=== PATIENT | male | born 1945 | race Caucasian/White ===

== ENCOUNTER 2016-07-06 15:14 | Inpatient (IN) ==
[2016-07-06] MEDS ORDERED: SODIUM CHLORIDE 0.9% 1,000 ML IV SCH (15:30)
[2016-07-06] MEDS ORDERED: METOPROLOL TARTRATE 5 MG/5 ML VIAL IV ONE (17:57)
[2016-07-06 17:59] LABS: Basophils # 0.1 10*3/uL (0.0-0.2); Basophils % 0.9 % (0.0-0.8); Eosinophils # 0.2 10*3/uL (0.0-0.87); Eosinophils % 1.7 % (0.00-10.9); Hematocrit 38.1 VOL% (42.0-52.0); Hemoglobin 12.8 GM/DL (14.0-18.0); Immature Granulocytes % 0.3 %; Immature Granulocytes Absolute 0.03 #; Lymphocytes # 1.9 10*3/uL (1.4-4.0); Lymphocytes % 21.5 % (21.2-54.2); Mean Corpuscular HGB Conc 33.6 GM/DL (32-36); Mean Corpuscular Hemoglobin 30 PG (27-34); Mean Platelet Volume 11.5 FL (9.6-12.0); Monocytes % 11.5 % (1.7-12.7); Neutrophils # 5.7 10*3/uL (1.4-7.4); Neutrophils % 64.1 % (38.7-73.9); Platelet Count 209 T/CUMM (130-400); Red Blood Count 4.28 MC/CUMM (3.8-5.5); Red Cell Distribution Width 13.5 % (9.3-17.3); White Blood Count 8.9 T/CUMM (4-12)
[2016-07-06 18:33] LABS: Troponin I Only 18.7 NG/ML (0.00-0.045)
[2016-07-06] MEDS ORDERED: THIAMINE INJ 100 MG, FOLIC ACID INJ 1 MG, MULTIVITAMIN INJ 10 ML in SODIUM CHLORIDE 0.9... IV ONE (20:00)
[2016-07-06] MEDS: ENOXAPARIN 100 MG/ML SYRINGE SUBCUT SCH (20:29)
[2016-07-06] MEDS: ATORVASTATIN 40 MG TABLET PO SCH (20:30)
[2016-07-06] MEDS: chlordiazePOXIDE 10 MG CAPSULE PO SCH (20:30)
[2016-07-06] MEDS: CHLORHEXIDINE 0.12% ORAL RINSE 60 ML BOTTLE SWISH/SPIT SCH (20:30)
[2016-07-06] MEDS: METOPROLOL TARTRATE 50 MG TABLET PO SCH (20:32)
[2016-07-06] MEDS ORDERED: CHLORHEXIDINE 4% SOLN 118 ML BOTTLE TOP SCH (21:00)
[2016-07-07] MEDS: NITROGLYCERIN 2% OINT 1 INCH/GM PACK TOP SCH ×4 (01:00→18:14)
[2016-07-07 04:51] LABS: Basophils # 0.1 10*3/uL (0.0-0.2); Eosinophils # 0.3 10*3/uL (0.0-0.87); Eosinophils % 3.7 % (0.00-10.9); Hemoglobin 12.4 GM/DL (14.0-18.0); Immature Granulocytes % 0.5 %; Immature Granulocytes Absolute 0.04 #; Lymphocytes % 23.5 % (21.2-54.2); Mean Corpuscular HGB Conc 33.5 GM/DL (32-36); Mean Corpuscular Hemoglobin 30 PG (27-34); Mean Corpuscular Volume 90.5 FL (87-102); Mean Platelet Volume 11.6 FL (9.6-12.0); Monocytes % 11.2 % (1.7-12.7); Neutrophils # 5.2 10*3/uL (1.4-7.4); Neutrophils % 60.1 % (38.7-73.9); Platelet Count 209 T/CUMM (130-400); Red Blood Count 4.09 MC/CUMM (3.8-5.5); Red Cell Distribution Width 13.4 % (9.3-17.3); White Blood Count 8.6 T/CUMM (4-12)
--- NOTE | 2016-07-07 07:59 | XRay Report ---
Portable chest Date: 07/06/2016 Clinical history: Respiratory preoperative evaluation Comparison: None Technique: Portable AP sitting chest Findings: The heart is borderline in size with calcification in the aortic knob. Symmetric pleural thickening at the lung apices with calcified granulomata. Minimal atelectasis at the lung bases. Unremarkable mediastinum with degenerative changes. Impression: Evidence of old healed granulomatous disease with minimal atelectasis at the lung bases. PROCEDURE INTERPRETED AT [facility] DEPARTMENT OF RADIOLOGY Final Report Signed by: Dr. Yeimi Fox
[2016-07-07] MEDS: ASPIRIN CHEW 81 MG TABLET PO SCH (08:08)
[2016-07-07] MEDS: METOPROLOL TARTRATE 50 MG TABLET PO SCH ×2 (08:08→21:37)
[2016-07-07] MEDS: chlordiazePOXIDE 10 MG CAPSULE PO SCH ×2 (08:09→21:37)
[2016-07-07] MEDS: CHLORHEXIDINE 0.12% ORAL RINSE 60 ML BOTTLE SWISH/SPIT SCH ×2 (08:11→21:54)
--- NOTE | 2016-07-07 08:30 | Cardiology Consult Note ---
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 Christopher, 71WM, has risk factors significant for: CAD, hyertension, remote tobaccosim (stopped smoking 8 years ago). Patient presented to the emergency department of [facility] with complaints of chest pain occurring intermittently over the 3 days prior to admission, worsening in intensity and duration. He was diagnosed with NST SAVANNAH and taken to the cardiac catheterization July 06, 2016 with the following impression noted, ostial LAD 70 % stenosis, mid LAD 70% stenosis, proximal left circumflex 85% stenosis, distal left circumflex 100% occluded, OM1 90% proximal RCA 70% stenosis, mid right coronary artery 60% stenosis, EF 60% with small apical inferior akinesis. Patient was deemed best fit for CABG. He was transferred to [facility] where he has been housed in our ICU overnight and is awaiting CABG today by Dr. Hale. Prior to this admission, patient had no known history of coronary artery disease. Echocardiogram reveals LVEF 55%, mitral annular calcification is present especially at the posterior mitral valve annulus, mild MR noted, dilated aortic root (4.82 cm), RVSP 30-35 mmHg. Concentric left ventricular hypertrophy. Labs this morning have been ordered. Patient is NPO at this time and is awaiting surgery. It appears that his troponin has peaked at 10 per last draw at [facility] [place]. I will go ahead and order cardiac biomarkers, basic labs this morning she will have a baseline post surgery. Patient describes symptoms of claudication in bilateral lower extremities at 100 yards, worse in the right lower extremity. May need further workup outpatient eventually. ASSESSMENT/PLAN: 1. CAD - awaiting CABG this morning 2. HYPERTENSION - patient reports long-standing history of uncontrolled hypertension. Will adjust medications accordingly during hospital stay. 3. UNKNOWN LIPID STATUS - fasting lipid profile this morning 4. REMOTE TOBACCOSIM - stopped smoking over 8 years ago. 5. NSTEMI - scheduled for CABG this morning CC: Basil Hale - Home Medications and Allergies Home Medications: Home Medications Medication Instructions Recorded Confirmed Type Fenofibrate 160 mg PO DAILY 07/06/16 07/06/16 History Losartan Potassium 100 mg PO DAILY 07/06/16 07/06/16 History Meloxicam 15 mg PO DAILY 07/06/16 07/06/16 History Metoprolol Tartrate 25 mg PO BID 07/06/16 07/06/16 History Ranitidine Tab [Zantac Tab] 150 mg PO BID 07/06/16 07/06/16 History Allergies/Adverse Reactions: Allergies Allergy/AdvReac Type Severity Reaction Status Date / Time No Known Allergies Allergy Verified 07/06/16 17:13 Review of systems: REVIEW OF SYSTEMS: - Constitutional Constitutional: Present: Fatigue. Absent: syncope, anorexia, night sweats - EENT Eyes: Absent: blurry vision, loss of vision, diplopia Ears: Absent: decreased hearing, ear pain, ear discharge - Cardiovascular Cardiovascular: Denies chest pain, increasing dyspnea on exertion and at rest. Claudication. Denies edema, palpitations. Absent: chest pain with deep breath , - Respiratory Respiratory: Present: FREEMAN, denies cough. Absent: wheezing, hemoptysis, change in phlegm color - Gastrointestinal Gastrointestinal: Denies: constipation. Absent: adbominal pain, hematemesis, hematochezia, melena, change in bowel habits, nausea - Genitourinary Genitourinary: Absent: difficulty urinating, dysuria, urinary hesitancy, flank pain - Musculoskeletal Musculoskeletal: Present: back pain Absent: joint swelling, muscle cramps, muscle weakness - Neurological Neurological: Present: normal gait without frequent falls. Absent: dizziness, hemiparesis - Psychiatric Psychiatric: Absent: anxiety, depression, difficulty concentrating - Endocrine Endocrine: Present: fatigue. Absent: cold intolerance, heat intolerance, polyuria, polyphagia, polydipsia - Hematologic/Lymphatic Hematologic/Lymphatic: Present: easy bruising. Absent: easy bleeding -Integumentary Integumentary: Absent: lesions, rashes, skin breakdown Medical,Surgical,& Family Hx - Medical History Cardio: History of: CAD, Hypertension, [place] (NSTEMI) Gastrointestinal: History of: GERD Musculoskeletal: History of: Musculoskeletal Problems (SHOULDER SURGERY IN 1971) - Surgical History Cardiac Surgeries: Sugical HX of: Cardiac Catheterization (07/06/16) Patient Denies: Cardiac Surgery (SCHEDULED FOR CABG 07/08/16) HEENT Surgeries: Surgical HX of: Eye Surgery (CATARACT) - Family History Family History: Reports;: Family Diabetes (MOTHER) - Social History Smoking Status: Former smoker Have you smoked in the last 12 months: No Type of Drug Use: None Lives With:: Alone Functional capacity: independent ambulation Physical Examination Vital Signs Pulse Resp 71 12 07/06/16 17:09 07/06/16 17:09 General: [Appears well with no apparent distress.] [Pleasant and cooperative. ] [Appears comfortable.] HEENT: [PERRL, normocephalic, atraumatic. Mucous membranes moist. No jaundice noted. Conjunctiva moist and clear, sclerae anicteric] Neck: No JVD/HJR, no thyromegaly or lymphadenopathy noted. No carotid bruit appreciated Cardiac: [Regular rate and rhythm.] [No murmur rub or gallop.] Lungs: [Clear to auscultation without accessory muscle use to assist the respiratory pattern.] Not requiring oxygen Abdomen: Soft, bowel sounds normoactive. Nontender and nondistended. No abdominal bruit or thrill noted. No masses noted. Musculoskeletal: No fluid collection. Decreased range of motion is noted. Extremities: No clubbing, cyanosis noted. [ No edema noted.] Upper extremity pulses 2+. Lower extremity pulses 1+. Capillary refill less than 3 seconds. Skin: No unusual lesions or rashes. No skin breakdown appreciated. Neuro: Awake, alert and oriented 3. Moves all extremities well without hemiparesis or paralysis. No essential tremor is appreciated. Result/EKG - Labs CBC & BMP: 07/07/16 04:11 Lab Results: I have reviewed the past 24 hour labs Labs: Laboratory Results - last 24 hr 07/06/16 07/06/16 07/06/16 17:40 17:40 18:47 WBC 8.9 RBC 4.28 Hgb 12.8 L Hct 38.1 L MCV 89.0 MCH 30 MCHC 33.6 RDW 13.5 Plt Count 209 MPV 11.5 Neut % (Auto) 64.1 Lymph % (Auto) 21.5 [place] % (Auto) 11.5 Eos % (Auto) 1.7 Baso % (Auto) 0.9 H Neut # (Auto) 5.7 Lymph # (Auto) 1.9 [place] # (Auto) 1.0 H Eos # (Auto) 0.2 Baso # (Auto) 0.1 Immature Gran % 0.3 Nucleated RBC % 0.0 Immature Gran # 0.03 Nucleated RBCs # 0.00 Total Creatine Kinase 505 H CK-MB (CK-2) 23.0 H CK and CKMB Interp Troponin I 18.700 H Blood Type 07/07/16 07/07/16 07/07/16 04:11 04:11 Unknown WBC 8.6 RBC 4.09 Hgb 12.4 L Hct 37.0 L MCV 90.5 MCH 30 MCHC 33.5 RDW 13.4 Plt Count 209 MPV 11.6 Neut % (Auto) 60.1 Lymph % (Auto) 23.5 [place] % (Auto) 11.2 Eos % (Auto) 3.7 Baso % (Auto) 1.0 H Neut # (Auto) 5.2 Lymph # (Auto) 2.0 [place] # (Auto) 1.0 H Eos # (Auto) 0.3 Baso # (Auto) 0.1 Immature Gran % 0.5 Nucleated RBC % 0.0 Immature Gran # 0.04 Nucleated RBCs # 0.00 Total Creatine Kinase 302 D CK-MB (CK-2) 9.0 H D CK and CKMB Interp 3.0 Troponin I 11.000 H D Blood Type O POSITIVE - Diagnostic Findings Procedure: Chest x-ray: report reviewed by me - EKG EKG results: interpreted by ok EKG shows: sinus rhythm
--- NOTE | 2016-07-07 08:42 | Cardiothoracic History & Phys ---
Assessment and Plan - Time spent with patient Time spent with patient: Greater than 30 minutes Time spent discussing smoking cessation with patient: more than 10 minutes (1) Coronary artery disease Status: Acute Assessment and plan: Risk Model and Variables - STS Adult Cardiac Surgery Database Version 2.81 RISK SCORES About the STS Risk Calculator Procedure: CAB Only Risk of Mortality: 2.942% Morbidity or Mortality: 22.787% Long Length of Stay: 9.483% Short Length of Stay: 31.899% Permanent Stroke: 1.511% Prolonged Ventilation: 14.406% DSW Infection: 0.762% Renal Failure: 9.415% Reoperation: 7.51% 71-year-old gentleman with non-ST elevation myocardial infarction and three- vessel disease. The patient now is hemodynamically stable. I transferred him to [facility] to perform CABG. Risks benefits and alternatives of the procedure were discussed with the patient and he understands and he is eager to proceed with surgery. I scheduled him for surgery on July 08, 2016. Of note the patient noted that he would have 1-2 alcoholic beverage per night for the past few years. The risks of delirium tremens were explained to the patient and he was placed on a banana bag and Librium. I expect him to have delirium tremens within his hospital stay and it was explained to him. We will manage accordingly. Current Visit: Yes (2) Coronary artery disease Status: Acute Current Visit: Yes History of Present Illness Chief complaint: Non-ST elevation myocardial infarction History of present illness: Mr. Christopher is a 71 year old male who has been having on and off chest pain for the past few weeks. Most recently had an unrelenting chest pain that made him come to the ER at [facility]. The patient was evaluated and was noted to have an elevated troponin. He was taken to the Industrial Relations Representative and he was found to have three-vessel disease. We were consulted and evaluated him and he is a good candidate for surgery. He is hemodynamically stable. He was transferred to [facility] for his surgical procedure. Home Medications Medication Instructions Recorded Confirmed Type Fenofibrate 160 mg PO DAILY 07/06/16 07/06/16 History Losartan Potassium 100 mg PO DAILY 07/06/16 07/06/16 History Meloxicam 15 mg PO DAILY 07/06/16 07/06/16 History Metoprolol Tartrate 25 mg PO BID 07/06/16 07/06/16 History Ranitidine Tab [Zantac Tab] 150 mg PO BID 07/06/16 07/06/16 History Allergies Allergy/AdvReac Type Severity Reaction Status Date / Time No Known Allergies Allergy Verified 07/06/16 17:13 12 point system: reviewed and no additional remarkable complaints except as stated (HPI) Medical,Surgical,& Family Hx - Medical History Cardio: History of: CAD, Hypertension, [place] (NSTEMI) Gastrointestinal: History of: GERD Musculoskeletal: History of: Musculoskeletal Problems (SHOULDER SURGERY IN 1971) - Surgical History Cardiac Surgeries: Sugical HX of: Cardiac Catheterization (07/06/16) Patient Denies: Cardiac Surgery (SCHEDULED FOR CABG 07/08/16) HEENT Surgeries: Surgical HX of: Eye Surgery (CATARACT) - Family History Family History: Reports;: Family Diabetes (MOTHER) - Social History Smoking Status: Former smoker Have you smoked in the last 12 months: No Time spent discussing smoking cessation with patient: more than 10 minutes Frequency of Alcohol Use: Frequently (1-2 alcoholic beverage daily for the past 20 years) Type of Drug Use: None Cardiology Physical Exam - Constitutional Vitals: Vital Signs Temp Pulse Resp BP Pulse Ox 98.8 F 85 20 124/78 93 L 07/07/16 08:00 07/07/16 08:00 07/07/16 08:00 07/07/16 08:00 07/07/16 08:00 Intake and Output 07/06/16 07/07/16 07/07/16 22:59 06:59 14:59 Intake Total 50 / 50 1011.2 / 1011.2 100 / 100 Output Total 550 / 550 0 / 0 200 / 200 Balance -500 / -500 1011.2 / 1011.2 -100 / -100 Intake: IV 1011.2 / 1011.2 Vitamin B1 Inj 100 mg 1011.2 / 1011.2 Folic Acid Inj 5 mg/ml Multivitamin Inj 10 ml In Ns 1,000 ml @ 125 mls/hr IV ONCE ONE Rx#: [id number] Oral 50 / 50 100 / 100 Output: Urine 550 / 550 0 / 0 200 / 200 Other: Voiding Method Urinal Urinal # Voids 1 Weight 89.3 kg 85.275 kg General appearance: normal weight - Head Head exam: Present: normal inspection - Eye Eye exam: Present: EOMI Pupils: Present: JENNIFER - ENT ENT exam: Present: normal exam - Neck Neck exam: Present: normal inspection - Respiratory Respiratory exam: Present: clear to auscultation bilaterally - Cardiovascular Cardiovascular exam: Present: regular rate and rhythm - GI/Abdominal GI/Abdominal exam: Present: normal bowel sounds Result/EKG - Labs CBC & BMP: 07/07/16 04:11 Labs: Laboratory Results - last 24 hr 07/06/16 07/06/16 07/06/16 17:40 17:40 18:47 WBC 8.9 RBC 4.28 Hgb 12.8 L Hct 38.1 L MCV 89.0 MCH 30 MCHC 33.6 RDW 13.5 Plt Count 209 MPV 11.5 Neut % (Auto) 64.1 Lymph % (Auto) 21.5 [place] % (Auto) 11.5 Eos % (Auto) 1.7 Baso % (Auto) 0.9 H Neut # (Auto) 5.7 Lymph # (Auto) 1.9 [place] # (Auto) 1.0 H Eos # (Auto) 0.2 Baso # (Auto) 0.1 Immature Gran % 0.3 Nucleated RBC % 0.0 Immature Gran # 0.03 Nucleated RBCs # 0.00 Total Creatine Kinase 505 H CK-MB (CK-2) 23.0 H CK and CKMB Interp Troponin I 18.700 H Blood Type 07/07/16 07/07/16 07/07/16 04:11 04:11 Unknown WBC 8.6 RBC 4.09 Hgb 12.4 L Hct 37.0 L MCV 90.5 MCH 30 MCHC 33.5 RDW 13.4 Plt Count 209 MPV 11.6 Neut % (Auto) 60.1 Lymph % (Auto) 23.5 [place] % (Auto) 11.2 Eos % (Auto) 3.7 Baso % (Auto) 1.0 H Neut # (Auto) 5.2 Lymph # (Auto) 2.0 [place] # (Auto) 1.0 H Eos # (Auto) 0.3 Baso # (Auto) 0.1 Immature Gran % 0.5 Nucleated RBC % 0.0 Immature Gran # 0.04 Nucleated RBCs # 0.00 Total Creatine Kinase 302 D CK-MB (CK-2) 9.0 H D CK and CKMB Interp 3.0 Troponin I 11.000 H D Blood Type O POSITIVE
[2016-07-07 09:57] LABS: Basophils # 0.1 10*3/uL (0.0-0.2); Basophils % 0.7 % (0.0-0.8); Eosinophils # 0.2 10*3/uL (0.0-0.87); Eosinophils % 2.8 % (0.00-10.9); Hematocrit 39.6 VOL% (42.0-52.0); Hemoglobin 13.1 GM/DL (14.0-18.0); Immature Granulocytes % 0.6 %; Immature Granulocytes Absolute 0.05 #; Lymphocytes # 1.6 10*3/uL (1.4-4.0); Lymphocytes % 18.9 % (21.2-54.2); Mean Corpuscular HGB Conc 33.1 GM/DL (32-36); Mean Corpuscular Hemoglobin 30 PG (27-34); Mean Corpuscular Volume 91.2 FL (87-102); Mean Platelet Volume 11.5 FL (9.6-12.0); Monocytes # 0.9 10*3/uL (0.11-0.8); Monocytes % 10.2 % (1.7-12.7); Neutrophils # 5.8 10*3/uL (1.4-7.4); Neutrophils % 66.8 % (38.7-73.9); Platelet Count 227 T/CUMM (130-400); Red Blood Count 4.34 MC/CUMM (3.8-5.5); Red Cell Distribution Width 13.6 % (9.3-17.3); White Blood Count 8.6 T/CUMM (4-12)
[2016-07-07 09:58] LABS: Risk Ratio 4.43; VLDL CHOLESTEROL 28.6 MG/DL
[2016-07-07 10:26] LABS: Calcium 8.6 MG/DL (8.5-10.1); Magnesium 1.6 MG/DL (1.8-2.4); Osmolality,Calculated 281.4 MOS/KG (273-304); Potassium 4.2 MMOL/L (3.5-5.1)
[2016-07-07 10:30] LABS: CKMB % 2.3 %
[2016-07-07 10:31] LABS: Troponin I Only 8.9 NG/ML (0.00-0.045)
[2016-07-07] MEDS: CHLORHEXIDINE 4% SOLN 118 ML BOTTLE TOP SCH ×2 (15:14→21:54)
[2016-07-07] MEDS: ENOXAPARIN 100 MG/ML SYRINGE SUBCUT SCH (21:36)
[2016-07-07] MEDS: ATORVASTATIN 40 MG TABLET PO SCH (21:37)
[2016-07-07] MEDS ORDERED: diphenhydrAMINE 50 MG/1 ML VIAL IV ONE (22:58)
[2016-07-08] MEDS ORDERED: CEFUROXIME INJ 1,500 MG in SODIUM CHLORIDE 0.9% 100 ML IV ONE ×2 (00:01→06:00)
[2016-07-08] MEDS: NITROGLYCERIN 2% OINT 1 INCH/GM PACK TOP SCH ×3 (00:40→13:50)
[2016-07-08] MEDS ORDERED: PAPAVERINE 60 MG/2 ML VIAL ONE (04:36)
[2016-07-08] MEDS ORDERED: TISSUE ADHESIVE 1 EACH APPLICATOR TOP ONE (04:37)
[2016-07-08] MEDS ORDERED: VANCOMYCIN 1,000 MG VIAL ONE (04:37)
[2016-07-08 04:56] LABS: Basophils # 0.1 10*3/uL (0.0-0.2); Basophils % 0.7 % (0.0-0.8); Eosinophils # 0.4 10*3/uL (0.0-0.87); Eosinophils % 5.3 % (0.00-10.9); Hematocrit 35.7 VOL% (42.0-52.0); Immature Granulocytes % 0.5 %; Immature Granulocytes Absolute 0.04 #; Lymphocytes # 1.8 10*3/uL (1.4-4.0); Lymphocytes % 22.3 % (21.2-54.2); Mean Corpuscular HGB Conc 33.6 GM/DL (32-36); Mean Corpuscular Hemoglobin 30 PG (27-34); Mean Corpuscular Volume 90.4 FL (87-102); Mean Platelet Volume 11.9 FL (9.6-12.0); Monocytes % 11.8 % (1.7-12.7); Neutrophils # 4.9 10*3/uL (1.4-7.4); Neutrophils % 59.4 % (38.7-73.9); Platelet Count 202 T/CUMM (130-400); Red Blood Count 3.95 MC/CUMM (3.8-5.5); Red Cell Distribution Width 13.3 % (9.3-17.3); White Blood Count 8.3 T/CUMM (4-12)
[2016-07-08 05:21] LABS: Calcium 8.4 MG/DL (8.5-10.1); Magnesium 1.7 MG/DL (1.8-2.4); Osmolality,Calculated 282.3 MOS/KG (273-304)
[2016-07-08] MEDS ORDERED: FAMOTIDINE 20 MG/2 ML VIAL IV ONE (05:30)
[2016-07-08] MEDS ORDERED: LORazepam 1 MG TABLET PO ONE (05:30)
[2016-07-08] MEDS ORDERED: SODIUM CHLORIDE 0.9% 1,000 ML IV SCH (06:00)
[2016-07-08] MEDS ORDERED: ETOMIDATE 20 MG/10 ML VIAL IV ONE (06:45)
[2016-07-08] MEDS ORDERED: ONDANSETRON 4 MG/2 ML VIAL ONE (06:45)
[2016-07-08] MEDS ORDERED: ESMOLOL 100 MG/10 ML VIAL IV ONE (06:45)
[2016-07-08] MEDS ORDERED: CALCIUM CHLORIDE 1,000 MG/10 ML SYRINGE IV ONE (06:45)
[2016-07-08] MEDS ORDERED: AMINOCAPROIC ACID 5,000 MG/20 ML VIAL IV ONE (06:45)
[2016-07-08] MEDS ORDERED: MINERAL OIL/PETROLATUM OPH OINT 3.5 GM TUBE ONE (06:45)
[2016-07-08] MEDS ORDERED: KETOROLAC 30 MG/1 ML VIAL ONE (06:45)
[2016-07-08] MEDS ORDERED: PHENYLEPHRINE 1 MG/10 ML SYRINGE IV ONE (06:45)
[2016-07-08] MEDS ORDERED: EPINEPHrine 1 MG/10 ML SYRINGE ONE ×2 (06:45→09:16)
[2016-07-08] MEDS ORDERED: LIDOCAINE 1% 5 ML VIAL ONE (06:45)
[2016-07-08] MEDS ORDERED: ROCURONIUM 100 MG/10 ML VIAL IV ONE (06:45)
[2016-07-08 07:46] LABS: ABG Base Excess -3.8 MMOL/L (-2.5-2.5); ABG HCO3 21.2 MMOL/L (20-26); ABG Oxygen Saturation 99.2 % (95-100); ABG PCO2 32.5 MM HG (35-48); Glucose Heart Surgery 114 MG/DL (74-106); Hematocrit Heart Surgery 34.7 PERCENT (42-52); Hemoglobin Heart Surgery 11.3 G/DL (14.0-18.0); Ionized Calcium Arterial 1.17 MMOL/L (1.21-1.46); PCO2 Patient Temp Arterial 32.5 MMHG; Patient Temperature 37 CELCIUS; Potassium Heart/CVR 3.7 MMOL/L (3.5-5.1); Sodium Heart/CVR 139 MMOL/L (135-145)
[2016-07-08 08:13] LABS: Apearance,Urine CLEAR (Clear); Bacteria,Urine Occasional /HPF (Few); Bilirubin,Urine Negative (Negative); Blood, Urine Negative (Negative); Glucose,Urine (UA) Negative (Negative); Ketones,Urine Negative (Negative); Nitrite,Urine Negative (Negative); Protein,Urine Negative; RBC,Urine 1 /HPF (0-4); Urine Color Yellow (Yellow); Urine Specific Gravity 1.011 (1.001-1.035); Urine Urobilinogen < 2.0 EU/DL (0.2-1.0); WBC,Urine 1 /HPF (0-6)
[2016-07-08] MEDS ORDERED: PHENYLEPHRINE DRIP 40 MG/250 ML PREMIX IV ONE (09:15)
[2016-07-08] MEDS ORDERED: NITROPRUSSIDE 50 MG/2 ML VIAL ONE (09:15)
[2016-07-08 09:16] LABS: Hemoglobin Heart Surgery 8.6 G/DL (14.0-18.0); PH Patient Temp Venous 7.511; PO2 Patient Temp Venous 32.4 MM HG; Potassium Heart/CVR 4.5 MMOL/L (3.5-5.1); VBG Base Excess -2.2 MEQ/L (0-4); VBG HCO3 20.9 MEQ/L (24-28); VBG Oxygen Saturation 75.6 %; VBG PCO2 29.7 MMHG (41-51); VBG PH 7.466; VBG PO2 40.1 MMHG (17-40)
[2016-07-08] MEDS ORDERED: ALBUMIN 5% 12.5 GM/250 ML VIAL IV ONE (09:16)
[2016-07-08] MEDS ORDERED: LIDOCAINE 100 MG/5 ML SYRINGE ONE (09:16)
[2016-07-08] MEDS ORDERED: ATROPINE 1 MG/1 ML VIAL ONE (09:16)
[2016-07-08] MEDS ORDERED: POTASSIUM CHLORIDE RIDER 100 ML IV ONE (09:32)
[2016-07-08 09:45] LABS: Hematocrit Heart Surgery 26.7 PERCENT (42-52); Hemoglobin Heart Surgery 8.6 G/DL (14.0-18.0); PCO2 Patient Temp Venous 29.9 MM HG; PH Patient Temp Venous 7.43; PO2 Patient Temp Venous 37.4 MM HG; Potassium Heart/CVR 4.3 MMOL/L (3.5-5.1); VBG Base Excess -3.7 MEQ/L (0-4); VBG HCO3 21.1 MEQ/L (24-28); VBG Oxygen Saturation 80.6 %; VBG PCO2 34.5 MMHG (41-51); VBG PH 7.387; VBG PO2 45.9 MMHG (17-40)
[2016-07-08] MEDS: chlordiazePOXIDE 10 MG CAPSULE PO SCH (09:58)
[2016-07-08] MEDS: ASPIRIN CHEW 81 MG TABLET PO SCH (09:58)
[2016-07-08] MEDS: CHLORHEXIDINE 4% SOLN 118 ML BOTTLE TOP SCH (09:58)
[2016-07-08] MEDS: CHLORHEXIDINE 0.12% ORAL RINSE 60 ML BOTTLE SWISH/SPIT SCH ×2 (09:58→20:56)
[2016-07-08] MEDS: METOPROLOL TARTRATE 50 MG TABLET PO SCH (09:58)
[2016-07-08 10:14] LABS: Hematocrit Heart Surgery 25.3 PERCENT (42-52); Hemoglobin Heart Surgery 8.1 G/DL (14.0-18.0); PCO2 Patient Temp Venous 28.5 MM HG; PH Patient Temp Venous 7.434; PO2 Patient Temp Venous 36.2 MM HG; Potassium Heart/CVR 4.4 MMOL/L (3.5-5.1); VBG Base Excess -4.4 MEQ/L (0-4); VBG HCO3 20.5 MEQ/L (24-28); VBG Oxygen Saturation 79.3 %; VBG PCO2 32.9 MMHG (41-51); VBG PH 7.39; VBG PO2 44.6 MMHG (17-40)
[2016-07-08 11:14] LABS: Hematocrit Heart Surgery 24.6 PERCENT (42-52); Hemoglobin Heart Surgery 7.9 G/DL (14.0-18.0); PCO2 Patient Temp Venous 49.2 MM HG; PH Patient Temp Venous 7.204; PO2 Patient Temp Venous 38.4 MM HG; Potassium Heart/CVR 3.7 MMOL/L (3.5-5.1); VBG Base Excess -8.4 MEQ/L (0-4); VBG HCO3 17.2 MEQ/L (24-28); VBG Oxygen Saturation 66.3 %; VBG PCO2 49.2 MMHG (41-51); VBG PH 7.204; VBG PO2 38.4 MMHG (17-40)
[2016-07-08 12:05] LABS: ABG Base Excess -2.7 MMOL/L (-2.5-2.5); ABG HCO3 20.2 MMOL/L (20-26); ABG Oxygen Saturation 98.7 % (95-100); ABG PCO2 28.3 MM HG (35-48); ABG PH 7.472 (7.35-7.45); ABG PO2 274.1 MM HG (80-95); ABG TCO2 21.1 MMOL/L (23-27); Glucose Heart Surgery 260 MG/DL (74-106); Hemoglobin Heart Surgery 8.9 G/DL (14.0-18.0); Ionized Calcium Arterial 1.07 MMOL/L (1.21-1.46); PCO2 Patient Temp Arterial 28.3 MMHG; PH Patient Temp Arterial 7.472; PO2 Patient Temp Arterial 274.1 MM HG; Patient Temperature 37 CELCIUS; Sodium Heart/CVR 133 MMOL/L (135-145)
[2016-07-08] MEDS ORDERED: SODIUM BICARBONATE 50 MEQ/50 ML VIAL IV ONE (12:14)
[2016-07-08] MEDS ORDERED: DEXTROSE 5% KCL 20 MEQ 20 MEQ/1,000 ML BAG IV ONE (12:14)
[2016-07-08] MEDS ORDERED: MANNITOL 12.5 GM/50 ML VIAL IV ONE (12:15)
[2016-07-08] MEDS ORDERED: ALBUMIN 25% 25 GM/100 ML VIAL IV ONE (12:15)
[2016-07-08] MEDS ORDERED: MAGNESIUM SULFATE 1 GM/2 ML VIAL ONE (12:15)
[2016-07-08] MEDS ORDERED: methylPREDNISolone SOD SUC 1,000 MG/8 ML VIAL ONE (12:15)
[2016-07-08] MEDS ORDERED: HEPARIN 10,000 UNIT/10 ML VIAL ONE (12:15)
[2016-07-08] MEDS ORDERED: FUROSEMIDE 20 MG/2 ML VIAL ONE (12:15)
[2016-07-08] MEDS ORDERED: PROTAMINE SULFATE 250 MG/25 ML VIAL IV ONE (12:15)
[2016-07-08] MEDS ORDERED: PROTAMINE SULFATE 50 MG/5 ML VIAL IV ONE (12:16)
[2016-07-08] MEDS: SODIUM CHLORIDE 0.45% 1,000 ML IV SCH ×2 (12:49→12:50)
[2016-07-08] MEDS ORDERED: DEXTROSE 50% 25 GM/50 ML VIAL IV PRN ×2 (12:54)
[2016-07-08] MEDS ORDERED: CHLORHEXIDINE 4% SOLN 118 ML BOTTLE TOP PRN (12:54)
[2016-07-08] MEDS ORDERED: INSULIN REGULAR 100 UNIT/ML IV PRN (12:54)
[2016-07-08] MEDS ORDERED: MORPHINE 10 MG/1 ML VIAL IV PRN (12:54)
[2016-07-08] MEDS ORDERED: SODIUM CHLORIDE 0.9% 250 ML IV PRN (12:54)
[2016-07-08] MEDS ORDERED: ACETAMINOPHEN 650 MG SUPP RECTAL PRN (12:54)
[2016-07-08] MEDS ORDERED: MAGNESIUM SULF RIDER 4 GM in PREMIX 1 EACH IV PRN (12:54)
[2016-07-08] MEDS ORDERED: CALCIUM CHLORIDE 1,000 MG/10 ML SYRINGE IV PRN (12:54)
[2016-07-08] MEDS ORDERED: MIDAZOLAM 2 MG/2 ML VIAL IV PRN (12:54)
[2016-07-08] MEDS ORDERED: ONDANSETRON 4 MG/2 ML VIAL IV PRN (12:54)
[2016-07-08] MEDS ORDERED: INSULIN REGULAR DRIP 100 ML IV SCH (13:00)
[2016-07-08] MEDS ORDERED: SODIUM CHLORIDE 0.9% 250 ML IV ONE (13:06)
[2016-07-08] MEDS ORDERED: LACTATED RINGERS 1,000 ML IV ONE (13:06)
[2016-07-08] MEDS ORDERED: SODIUM CHLORIDE 0.9% 2,000 ML IV ONE (13:06)
[2016-07-08] MEDS ORDERED: MIDAZOLAM 10 MG/2 ML VIAL ONE (13:06)
[2016-07-08] MEDS ORDERED: ePHEDrine 50 MG/ML AMP ONE (13:06)
[2016-07-08] MEDS ORDERED: SEVOFLURANE 1 UNIT/15 MINUTE INH ONE (13:07)
[2016-07-08 13:21] LABS: ABG Base Excess -4.4 MMOL/L (-2.5-2.5); ABG HCO3 18.9 MMOL/L (20-26); ABG Oxygen Saturation 98.1 % (95-100); ABG PCO2 28.7 MM HG (35-48); ABG PH 7.436 (7.35-7.45); ABG TCO2 19.8 MMOL/L (23-27); Glucose Heart Surgery 239 MG/DL (74-106); Hemoglobin Heart Surgery 10.2 G/DL (14.0-18.0); Potassium Heart/CVR 3.9 MMOL/L (3.5-5.1)
[2016-07-08 13:22] LABS: Basophils # 0.1 10*3/uL (0.0-0.2); Basophils % 0.4 % (0.0-0.8); Eosinophils # 0.3 10*3/uL (0.0-0.87); Eosinophils % 1.7 % (0.00-10.9); Hematocrit 28.5 VOL% (42.0-52.0); Hemoglobin 9.7 GM/DL (14.0-18.0); Immature Granulocytes % 1.5 %; Immature Granulocytes Absolute 0.24 #; Lymphocytes # 1.9 10*3/uL (1.4-4.0); Lymphocytes % 11.5 % (21.2-54.2); Mean Corpuscular Hemoglobin 30 PG (27-34); Mean Corpuscular Volume 88.2 FL (87-102); Monocytes # 1.2 10*3/uL (0.11-0.8); Monocytes % 7.1 % (1.7-12.7); Neutrophils # 12.7 10*3/uL (1.4-7.4); Neutrophils % 77.8 % (38.7-73.9); Platelet Count 178 T/CUMM (130-400); Red Blood Count 3.23 MC/CUMM (3.8-5.5); White Blood Count 16.3 T/CUMM (4-12)
[2016-07-08] MEDS: POTASSIUM CHLORIDE RIDER 20 MEQ in PREMIX 1 EACH IV PRN ×2 (13:37→16:10)
[2016-07-08 13:41] LABS: INR 1.3; PT Patient Result 14.3 SECS; Partial Thromboplastin Time 29.9 SECS (0-40)
[2016-07-08 13:42] LABS: Lactic Acid 4.3 MMOL/L (0.4-2.0)
[2016-07-08] MEDS ORDERED: NITROPRUSSIDE 50 MG/2 ML VIAL IV PRN (13:58)
[2016-07-08 14:00] LABS: Magnesium 2.4 MG/DL (1.8-2.4); Osmolality,Calculated 291.1 MOS/KG (273-304); Potassium 4.3 MMOL/L (3.5-5.1)
[2016-07-08] MEDS ORDERED: PHENYLEPHRINE DRIP 40 MG/250 ML PREMIX IV SCH (14:00)
--- NOTE | 2016-07-08 14:02 | XRay Report ---
Portable chest Date: 07/08/2016 Clinical history: Endotracheal tube/line placed Comparison: 07/06/2016 Technique: Portable AP supine chest Findings: The heart is minimally enlarged with interval median sternotomy. The endotracheal tube, nasogastric tube, mediastinal chest tubes are in satisfactory position. Right IJ CVP line with tip in SVC. No pneumothorax. Minimal atelectasis/edema at lung bases. Degenerative changes are noted. Impression: Interval median sternotomy with a supportive devices in satisfactory position. Minimal atelectasis/edema at the lung bases with no definite pneumothorax. PROCEDURE INTERPRETED AT [facility] DEPARTMENT OF RADIOLOGY Final Report Signed by: Dr. Yeimi Fox
[2016-07-08] MEDS: ALBUMIN 5% 12.5 GM in PREMIX 1 EACH IV PRN ×4 (14:04→22:21)
[2016-07-08] MEDS: POTASSIUM CHLORIDE RIDER 10 MEQ in PREMIX 1 EACH IV PRN ×2 (14:08→16:45)
[2016-07-08] MEDS: MAGNESIUM SULF RIDER 2 GM in PREMIX 1 EACH IV PRN (14:14)
[2016-07-08] MEDS ORDERED: SODIUM CHLORIDE 0.9% 1,000 ML IV ONE (14:25)
[2016-07-08] MEDS ORDERED: NITROPRUSSIDE 100 MG in DEXTROSE 5% 250 ML IV SCH (14:30)
[2016-07-08 16:04] LABS: ABG Base Excess -2.2 MMOL/L (-2.5-2.5); ABG HCO3 21.3 MMOL/L (20-26); ABG Oxygen Saturation 96.2 % (95-100); ABG PCO2 31.8 MM HG (35-48); ABG PH 7.443 (7.35-7.45); ABG PO2 84.4 MM HG (80-95); ABG TCO2 22.2 MMOL/L (23-27); Glucose Heart Surgery 200 MG/DL (74-106); Hemoglobin Heart Surgery 10.2 G/DL (14.0-18.0); Potassium Heart/CVR 3.8 MMOL/L (3.5-5.1)
--- NOTE | 2016-07-08 16:28 | Cardiology Progress Note ---
Cardiology - PN: Subj Interval history: Patient is now postop. He is hemodynamically stable with good outputs and stable vital signs. He is not awake at this point but his rhythm is good and he is stable immediately postop. Exam (Progress Note) - Constitutional Vitals: Period Temp Pulse Resp BP Sys/Nails Pulse Ox Last 24 Hr 97.0 F-97.5 F 69-93 10-20 86-175/51-108 93-100 Exam: General:no acute distress. Patient sedated on the ventilator HEENT: no new lesions, sclerae are clear, mouth and pharynx benign Neck: supple, trachea midline, no JVD noted Lungs: no rales ronchi or wheeze is noted. Typical postoperative mediastinal sounds noted CV: RRR no murmur rub or gallop is noted. Abd: soft and nontender, BSNA, no masses. Ext: no cyanosis, clubbing or edema Neuro: Patient sedated on the ventilator Result/EKG - Labs CBC & BMP: 07/08/16 13:17 07/08/16 13:17 Labs: Laboratory Results - last 24 hr 07/07/16 07/08/16 07/08/16 04:11 04:33 04:33 WBC 8.3 RBC 3.95 Hgb 12.0 L Hct 35.7 L MCV 90.4 MCH 30 MCHC 33.6 RDW 13.3 Plt Count 202 MPV 11.9 Neut % (Auto) 59.4 Lymph % (Auto) 22.3 [place] % (Auto) 11.8 Eos % (Auto) 5.3 Baso % (Auto) 0.7 Neut # (Auto) 4.9 Lymph # (Auto) 1.8 [place] # (Auto) 1.0 H Eos # (Auto) 0.4 Baso # (Auto) 0.1 Immature Gran % 0.5 Nucleated RBC % 0.0 Immature Gran # 0.04 Nucleated RBCs # 0.00 INR PT Patient/Control Mix Circ Anticoag PTT Patient Temperature ABG pH ABG pH at Pt Temp ABG pCO2 ABG pCO2 at Pt Temp ABG pO2 ABG pO2 at Pt Temp ABG HCO3 ABG Total CO2 ABG O2 Saturation ABG Base Excess ABG Sodium VBG pH VBG pCO2 VBG pO2 VBG HCO3 VBG Total CO2 VBG O2 Saturation VBG Base Excess Hemoglobin Hematocrit Ionized Calcium FiO2 Sodium 141 Potassium 4.0 Chloride 108 H Carbon Dioxide 22 Anion Gap 15.0 BUN 18 Creatinine 1.70 H GFR Calculation 46 BUN/Creatinine Ratio 10.00 Glucose 107 H Calculated Osmolality 282.3 Lactic Acid Calcium 8.4 L Venous Ioniz Calcium Magnesium 1.7 L Urine Color Urine Appearance Urine pH Ur Specific [place] Urine Protein Urine Glucose (UA) Urine Ketones Urine Blood Urine Nitrate Urine Bilirubin Urine Urobilinogen Urine Leukocytes Urine RBC Urine WBC Urine Bacteria Ur Culture Indicated? Blood Type O POSITIVE Antibody Screen Negative Crossmatch See Detail 07/08/16 07/08/16 07/08/16 07:35 07:40 08:06 WBC RBC Hgb Hct MCV MCH MCHC RDW Plt Count 146 D MPV Neut % (Auto) Lymph % (Auto) [place] % (Auto) Eos % (Auto) Baso % (Auto) Neut # (Auto) Lymph # (Auto) [place] # (Auto) Eos # (Auto) Baso # (Auto) Immature Gran % Nucleated RBC % Immature Gran # Nucleated RBCs # INR PT Patient/Control Mix Circ Anticoag PTT Patient Temperature 37 ABG pH 7.400 ABG pH at Pt Temp 7.400 ABG pCO2 32.5 L ABG pCO2 at Pt Temp 32.5 ABG pO2 162.0 H ABG pO2 at Pt Temp 162.0 ABG HCO3 21.2 ABG Total CO2 18.0 L ABG O2 Saturation 99.2 ABG Base Excess -3.8 L ABG Sodium 139 VBG pH VBG pCO2 VBG pO2 VBG HCO3 VBG Total CO2 VBG O2 Saturation VBG Base Excess Hemoglobin 11.3 L Hematocrit 34.7 L Ionized Calcium 1.17 L FiO2 Sodium Potassium 3.7 Chloride Carbon Dioxide Anion Gap BUN Creatinine GFR Calculation BUN/Creatinine Ratio Glucose 114 H Calculated Osmolality Lactic Acid Calcium Venous Ioniz Calcium Magnesium Urine Color Yellow Urine Appearance Clear Urine pH 6.0 Ur Specific [place] 1.011 Urine Protein Negative Urine Glucose (UA) Negative Urine Ketones Negative Urine Blood Negative Urine Nitrate Negative Urine Bilirubin Negative Urine Urobilinogen < 2.0 H Urine Leukocytes Trace Urine RBC 1 Urine WBC 1 Urine Bacteria Occasional Ur Culture Indicated? Not indicated Blood Type Antibody Screen Crossmatch 07/08/16 07/08/16 07/08/16 09:10 09:43 10:12 WBC RBC Hgb Hct MCV MCH MCHC RDW Plt Count MPV Neut % (Auto) Lymph % (Auto) [place] % (Auto) Eos % (Auto) Baso % (Auto) Neut # (Auto) Lymph # (Auto) [place] # (Auto) Eos # (Auto) Baso # (Auto) Immature Gran % Nucleated RBC % Immature Gran # Nucleated RBCs # INR PT Patient/Control Mix Circ Anticoag PTT Patient Temperature 34 34 34 ABG pH ABG pH at Pt Temp 7.511 7.430 7.434 ABG pCO2 ABG pCO2 at Pt Temp 26.0 29.9 28.5 ABG pO2 ABG pO2 at Pt Temp 32.4 37.4 36.2 ABG HCO3 ABG Total CO2 ABG O2 Saturation ABG Base Excess ABG Sodium 128 L 132 L 131 L VBG pH 7.466 7.387 7.390 VBG pCO2 29.7 L 34.5 L 32.9 L VBG pO2 40.1 H 45.9 H 44.6 H VBG HCO3 20.9 L 21.1 L 20.5 L VBG Total CO2 21.8 19.3 18.6 VBG O2 Saturation 75.6 80.6 79.3 VBG Base Excess -2.2 L -3.7 L -4.4 L Hemoglobin 8.6 L 8.6 L D 8.1 L Hematocrit 25.0 L 26.7 L 25.3 L Ionized Calcium FiO2 80.00 80.00 80.00 Sodium Potassium 4.5 4.3 4.4 Chloride Carbon Dioxide Anion Gap BUN Creatinine GFR Calculation BUN/Creatinine Ratio Glucose 314 H 283 H 280 H Calculated Osmolality Lactic Acid Calcium Venous Ioniz Calcium 0.89 1.03 L 0.99 L Magnesium Urine Color Urine Appearance Urine pH Ur Specific [place] Urine Protein Urine Glucose (UA) Urine Ketones Urine Blood Urine Nitrate Urine Bilirubin Urine Urobilinogen Urine Leukocytes Urine RBC Urine WBC Urine Bacteria Ur Culture Indicated? Blood Type Antibody Screen Crossmatch 07/08/16 07/08/16 07/08/16 11:15 11:53 12:13 WBC RBC Hgb Hct MCV MCH MCHC RDW Plt Count 63 L D MPV Neut % (Auto) Lymph % (Auto) [place] % (Auto) Eos % (Auto) Baso % (Auto) Neut # (Auto) Lymph # (Auto) [place] # (Auto) Eos # (Auto) Baso # (Auto) Immature Gran % Nucleated RBC % Immature Gran # Nucleated RBCs # INR PT Patient/Control Mix Circ Anticoag PTT Patient Temperature 37 37 ABG pH 7.472 H ABG pH at Pt Temp 7.204 7.472 ABG pCO2 28.3 L ABG pCO2 at Pt Temp 49.2 28.3 ABG pO2 274.1 H ABG pO2 at Pt Temp 38.4 274.1 ABG HCO3 20.2 ABG Total CO2 21.1 L ABG O2 Saturation 98.7 ABG Base Excess -2.7 L ABG Sodium 135 133 L VBG pH 7.204 VBG pCO2 49.2 VBG pO2 38.4 VBG HCO3 17.2 L VBG Total CO2 18.6 VBG O2 Saturation 66.3 VBG Base Excess -8.4 L Hemoglobin 7.9 L 8.9 L Hematocrit 24.6 L 26.0 L Ionized Calcium 1.07 L FiO2 80.00 Sodium Potassium 3.7 4.0 Chloride Carbon Dioxide Anion Gap BUN Creatinine GFR Calculation BUN/Creatinine Ratio Glucose 319 H 260 H Calculated Osmolality Lactic Acid Calcium Venous Ioniz Calcium 1.22 Magnesium Urine Color Urine Appearance Urine pH Ur Specific [place] Urine Protein Urine Glucose (UA) Urine Ketones Urine Blood Urine Nitrate Urine Bilirubin Urine Urobilinogen Urine Leukocytes Urine RBC Urine WBC Urine Bacteria Ur Culture Indicated? Blood Type Antibody Screen Crossmatch 07/08/16 07/08/16 07/08/16 13:17 13:17 13:17 WBC 16.3 H D RBC 3.23 L Hgb 9.7 L D Hct 28.5 L MCV 88.2 MCH 30 MCHC 34.0 RDW 14.0 Plt Count 178 D MPV 11.0 Neut % (Auto) 77.8 H Lymph % (Auto) 11.5 L [place] % (Auto) 7.1 Eos % (Auto) 1.7 Baso % (Auto) 0.4 Neut # (Auto) 12.7 H Lymph # (Auto) 1.9 [place] # (Auto) 1.2 H Eos # (Auto) 0.3 Baso # (Auto) 0.1 Immature Gran % 1.5 Nucleated RBC % 0.0 Immature Gran # 0.24 Nucleated RBCs # 0.00 INR 1.3 PT Patient/Control Mix 14.3 Circ Anticoag PTT 29.9 Patient Temperature ABG pH ABG pH at Pt Temp ABG pCO2 ABG pCO2 at Pt Temp ABG pO2 ABG pO2 at Pt Temp ABG HCO3 ABG Total CO2 ABG O2 Saturation ABG Base Excess ABG Sodium VBG pH VBG pCO2 VBG pO2 VBG HCO3 VBG Total CO2 VBG O2 Saturation VBG Base Excess Hemoglobin Hematocrit Ionized Calcium FiO2 Sodium 142 Potassium 4.3 Chloride 106 Carbon Dioxide 20 L Anion Gap 20.3 H BUN 15 Creatinine 1.60 H GFR Calculation 49 BUN/Creatinine Ratio 9.00 Glucose 239 H Calculated Osmolality 291.1 Lactic Acid 4.3 H Calcium 9.0 Venous Ioniz Calcium Magnesium 2.4 Urine Color Urine Appearance Urine pH Ur Specific [place] Urine Protein Urine Glucose (UA) Urine Ketones Urine Blood Urine Nitrate Urine Bilirubin Urine Urobilinogen Urine Leukocytes Urine RBC Urine WBC Urine Bacteria Ur Culture Indicated? Blood Type Antibody Screen Crossmatch 07/08/16 07/08/16 07/08/16 13:17 16:00 16:00 WBC RBC Hgb Hct MCV MCH MCHC RDW Plt Count MPV Neut % (Auto) Lymph % (Auto) [place] % (Auto) Eos % (Auto) Baso % (Auto) Neut # (Auto) Lymph # (Auto) [place] # (Auto) Eos # (Auto) Baso # (Auto) Immature Gran % Nucleated RBC % Immature Gran # Nucleated RBCs # INR PT Patient/Control Mix Circ Anticoag PTT Patient Temperature ABG pH 7.436 7.443 ABG pH at Pt Temp ABG pCO2 28.7 L 31.8 L ABG pCO2 at Pt Temp ABG pO2 131.0 H 84.4 ABG pO2 at Pt Temp ABG HCO3 18.9 L 21.3 ABG Total CO2 19.8 L 22.2 L ABG O2 Saturation 98.1 96.2 ABG Base Excess -4.4 L -2.2 ABG Sodium VBG pH VBG pCO2 VBG pO2 VBG HCO3 VBG Total CO2 VBG O2 Saturation VBG Base Excess Hemoglobin 10.2 L 10.2 L Hematocrit 30.0 L 30.0 L Ionized Calcium FiO2 Sodium Potassium 3.9 3.8 Chloride Carbon Dioxide Anion Gap BUN Creatinine GFR Calculation BUN/Creatinine Ratio Glucose 239 H 200 H Calculated Osmolality Lactic Acid 2.4 H Calcium Venous Ioniz Calcium Magnesium Urine Color Urine Appearance Urine pH Ur Specific [place] Urine Protein Urine Glucose (UA) Urine Ketones Urine Blood Urine Nitrate Urine Bilirubin Urine Urobilinogen Urine Leukocytes Urine RBC Urine WBC Urine Bacteria Ur Culture Indicated? Blood Type Antibody Screen Crossmatch Quality Measures - VTE Contraindication to Pharmacological VTE Prophylaxis: Active Bleeding Specialty Discharge - Follow Up or Referrals
--- NOTE | 2016-07-08 19:48 | Operative Note ---
Date of procedure: 07/08/16 Pre-op diagnosis: Severe coronary artery disease Post-op diagnosis: same Procedure: 1. [place] of bilateral greater saphenous vein 2. [place] of the left internal mammary artery 3. Institution of cardia pulmonary bypass 4. Coronary artery bypass graft 3 saphenous vein graft to the right main coronary artery, saphenous vein graft to obtuse marginal branch, pedicled left internal mammary graft to the left anterior descending artery. Findings: Multiple scar tissue scattered around the precordium noting multiple undiagnosed myocardial infarctions completed. He had enlargement of his aortic root and ascending measuring around 5 cm. Severe extensive disease of his right main coronary artery, circumflex as well as the left anterior descending artery. The bypass was completed without any complications. There was some bleeding noted from the cannulation site on the aorta which was repaired with multiple pledgets stitches. Details of the procedure: The patient was brought into the OR placed supine on the OR table and general endotracheal anesthesia was induced without any problems. The patient was prepped and draped in the usual sterile fashion. Antibiotics were given. Timeout was performed. An incision was made in midline chest and a sternotomy was performed. Hemostasis was achieved. I then started dissecting down the left internal mammary artery and its entirety from the first rib all the way down to the xiphisternum. It was functional with very good flow at the end. I then proceeded with opening the pericardium and performing pericardial stay sutures as a pericardial cradle. I then exposed the proximal aortic arch. Of note the aortic root and the ascending aorta were enlarged. 2 2-0 Ethibond stitches were used for the cannulation site. The cannula was inserted without any problems. I then turned my attention to insert the dual stage venous cannula. I then proceeded with prepping the mammary at this point. I instituted cardiopulmonary bypass and the flow was good. At this point I inserted the cardioplegia needle. I then placed the cross clamp across the ascending aorta and cardioplegia was given the heart arrested successfully. I then proceeded with identifying the right main coronary artery and extensive scarring was noted across the precordium. Identified the right main coronary artery and there is no to be some disease in it. There was plaque identified. I then made the arteriotomy and the distal anastomosis was created between the saphenous vein graft and the right main coronary artery. The flow was very good after. Next I then turned my attention to the circumflex circulation. The heart was rotated and the second obtuse marginal branch was identified. The anastomosis was created without any problems. The flow was very good after. I then turned my attention to the left internal mammary artery and identifying the target on the left anterior descending artery. It was of good size and good target. An arteriotomy was made. And the anastomosis was performed and hemostasis was achieved. Anastomosis performed using 7-0 Prolene stitch. At this point I rewarm the patient and the cross-clamp was removed. Sinus rhythm was obtained. I then instituted the proximal anastomosis to the saphenous vein grafts to the obtuse marginal branch as well as the right main coronary artery. This was done without any problems. I wean the patient off bypass successfully. I then at this point I gave protamine. I decannulated the venous cannula successfully. Before proceeding to decannulate the aorta it was noted that the aortic wall was very thin and the hole enlarged. I placed pledgeted stitches however I felt that the safest way is to go back on pump. Heparin was given again. A new site for cannulation was achieved and I went back on pump. The aorta was repaired successfully and hemostasis achieved. I then weaned the patient again from pump successfully without any problems. He was back in sinus rhythm. I gave protamine again to reverse heparin. I decannulated the patient successfully. The patient was in sinus rhythm and he is hemodynamically stable. I obtained hemostasis and chest tubes were inserted. The sternum was approximated using wires. The subcutaneous tissue closed using PDS. The skin was closed using Monocryl. All counts were correct at the end of the procedure. The patient was transferred to ICU in good condition. Anesthesia: ALVERTO Surgeon / Physician: Basil Hale Estimated blood loss: other (CPB) Specimens: none sent Condition: stable Disposition: ICU Results - Labs CBC & BMP: 07/08/16 13:17 07/08/16 13:17 Discharge Plan - Discharge Medications No Action Ranitidine Tab [Zantac Tab] 150 mg PO BID Metoprolol Tartrate 25 mg PO BID Meloxicam 15 mg PO DAILY Fenofibrate 160 mg PO DAILY Losartan Potassium 100 mg PO DAILY - Follow Up or Referral - Forms/Instructions Instructions: Heart Healthy Diet (GEN), Coronary Artery Bypass Graft, Filtering Machine Tender (GEN), Sternal Precautions (GEN)
[2016-07-08] MEDS: CEFUROXIME INJ 1,500 MG in SODIUM CHLORIDE 0.9% 100 ML IV SCH (20:58)
[2016-07-08] MEDS: VALPROIC ACID INJ 500 MG in SODIUM CHLORIDE 0.9% 100 ML IV SCH (22:22)
[2016-07-09] MEDS: SODIUM CHLORIDE 0.45% 1,000 ML IV SCH ×7 (01:18→21:39)
[2016-07-09 04:10] LABS: ABG Base Excess -3.8 MMOL/L (-2.5-2.5); ABG HCO3 21.2 MMOL/L (20-26); ABG Oxygen Saturation 94.5 % (95-100); ABG PCO2 31.9 MM HG (35-48); ABG PO2 69.1 MM HG (80-95); ABG TCO2 18.7 MMOL/L (23-27); Glucose Heart Surgery 169 MG/DL (74-106); Hematocrit Heart Surgery 26.4 PERCENT (42-52); Hemoglobin Heart Surgery 8.5 G/DL (14.0-18.0)
[2016-07-09 04:11] LABS: Basophils % 0.1 % (0.0-0.8); Hematocrit 24.8 VOL% (42.0-52.0); Hemoglobin 8.6 GM/DL (14.0-18.0); Immature Granulocytes % 0.5 %; Immature Granulocytes Absolute 0.08 #; Lymphocytes # 0.6 10*3/uL (1.4-4.0); Lymphocytes % 4.1 % (21.2-54.2); Mean Corpuscular HGB Conc 34.7 GM/DL (32-36); Mean Corpuscular Hemoglobin 30 PG (27-34); Mean Corpuscular Volume 87.6 FL (87-102); Mean Platelet Volume 11.5 FL (9.6-12.0); Neutrophils % 89.3 % (38.7-73.9); Platelet Count 114 T/CUMM (130-400); Red Blood Count 2.83 MC/CUMM (3.8-5.5); Red Cell Distribution Width 14.8 % (9.3-17.3); White Blood Count 15.7 T/CUMM (4-12)
[2016-07-09 04:39] LABS: Lymphocytes 5 % (20-55); Segmented Neutrophils 93 % (50-85); Total Cells Counted 100
[2016-07-09 04:40] LABS: Microcytosis 1+; Platelet Estimate Adequate
[2016-07-09 04:41] LABS: Hypochromasia Slight
[2016-07-09 04:47] LABS: Calcium 7.9 MG/DL (8.5-10.1); Magnesium 2.1 MG/DL (1.8-2.4); Osmolality,Calculated 289.1 MOS/KG (273-304); Potassium 4.1 MMOL/L (3.5-5.1)
[2016-07-09] MEDS: VALPROIC ACID INJ 500 MG in SODIUM CHLORIDE 0.9% 100 ML IV SCH ×2 (05:29→12:15)
--- NOTE | 2016-07-09 06:30 | XRay Report ---
Exam: XR chest 1V portable Date: 07/09/2016 4:00 AM Indication: Postop cardiac surgery Comparison: 07/08/2016 Technical: AP portable Findings: Endotracheal tube at the level of mid clavicle. Nasogastric tube is present. Right IJ catheter is in the superior vena cava. Mediastinal drains are present x2 with left lower thoracotomy tube also present. No pneumothorax. ASVD is present. Heart is mildly enlarged. Bony structures reveal no acute findings. Impression: 1. Stable appearance of the left support tubes without significant interval change. PROCEDURE INTERPRETED AT [facility] DEPARTMENT OF RADIOLOGY Final Report Signed by: Dr. Harsha Simon
[2016-07-09] MEDS: CEFUROXIME INJ 1,500 MG in SODIUM CHLORIDE 0.9% 100 ML IV SCH ×2 (08:35→21:32)
--- NOTE | 2016-07-09 08:56 | Anesthesia Post-Op ---
Anesthesia Post OP - Post Ansesthetic Evaluation Patient seen in post op: Yes Resp: other (Remains on vent.) CV: within normal limits Mental: other (very mininmal responses to verbal or painful stimuli) Temp: within normal limits [id number]: within normal limits Nausea and Vomiting: within normal limits Pain: within normal limits Other:: No anesthesia complications noted. Patient is not awakening and not sedated. Multiple physicians are aware.
--- NOTE | 2016-07-09 09:45 | Cardiology Progress Note ---
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 STEWART ([place]) [facility] [place] SUMMARY: Mr. Christopher, 71WM, was received to [facility] in transfer from [facility] July 07, 2016. At rest, he was diagnosed with NSTEMI. He underwent cardiac catheterization July 06, 2016 and diagnosed with three-vessel coronary artery disease. For this reason, he was transferred to our facility for elective coronary artery bypass grafting. Echocardiogram from [place] revealed LVEF 55%, mitral annular calcification is present especially at the posterior mitral valve annulus, mild MR noted, dilated aortic root (4.82 cm), RVSP 30-35 mmHg, concentric left ventricular hypertrophy. JULY 09, 2016: POD 1. Status post CABG 3 using BRASHER to LAD, SVG to OM, SVG to RCA. He remains in the cardiovascular recovery unit. It is reported he began to have suspected seizures during the night and is not following commands. He remains on vasopressors and mechanical ventilator. He does have a history of alcohol abuse and has been treated, prophylactically, for possible delirium tremens. Hemoglobin and hematocrit are stable this morning. Platelet count is 114. Creatinine has increased from 1.6 - 2.5. No arrhythmia noted. Patient's troponin peaked at 18.7. When stable, patient will need CT Head. I understand neurology has been consulted. ASSESSMENT/PLAN: 1. 3VCAD S/P CABG - POD 1: BRASHER-LAD, SVG-RCA, SVG-OM. Patient is critically ill. Continue supportive care. 2. HYPERTENSION -at this time, patient continues to require vasopressors. When able, will incorporate antihypertensives appropriately. 3. DYSLIPIDEMIA - LDL 122. Continue lipid-lowering agent when able. 4. REMOTE TOBACCOISM - stopped smoking over 8 years ago. 5. NSTEMI - s/p revascularization. Continue current plan of care. Exam (Progress Note) - Constitutional Vitals: Period Temp Pulse Resp BP Sys/Nails Pulse Ox Last 24 Hr 97 F-98.1 F 77-101 10-15 86-173/46-84 96-100 Exam: General: [Remains intubated] [] [Appears comfortable.] HEENT: [Normocephalic, atraumatic. Mucous membranes moist. No jaundice noted. Conjunctiva moist and clear, sclerae anicteric] Neck: No obvious JVD/HJR, no thyromegaly or lymphadenopathy noted. Cardiac: [Regular rate and rhythm.] [Friction rub noted. No obvious murmur. Lungs: [Coarse sounds noted throughout. Chest tubes intact without obvious air leak. Symmetrical chest wall movements noted. Sternotomy dressing dry and intact. Abdomen: Soft, bowel sounds normoactive. Nondistended. No abdominal bruit or thrill noted. No masses noted. Musculoskeletal: No fluid collection. Decreased range of motion is noted. Extremities: No clubbing, cyanosis noted. [ No edema noted.] Upper extremity pulses 2+. Lower extremity pulses 2+. Capillary refill less than 3 seconds. Skin: No unusual lesions or rashes. No skin breakdown appreciated. Neuro: Does not respond to tactile or verbal stimuli. No essential tremor is appreciated. Result/EKG - Labs CBC & BMP: 07/09/16 04:00 07/09/16 04:00 Lab Results: I have reviewed the past 24 hour labs Labs: Laboratory Results - last 24 hr 07/07/16 07/08/16 07/08/16 04:11 09:43 10:12 WBC RBC Hgb Hct MCV MCH MCHC RDW Plt Count MPV Neut % (Auto) Lymph % (Auto) Lake % (Auto) Eos % (Auto) Baso % (Auto) Neut # (Auto) Lymph # (Auto) Lake # (Auto) Eos # (Auto) Baso # (Auto) Total Counted Immature Gran % Nucleated RBC % Immature Gran # Segmented Neutrophils Lymphocytes Monocytes Nucleated RBCs # Platelet Estimate Hypochromasia Microcytosis INR PT Patient/Control Mix Circ Anticoag PTT Patient Temperature 34 34 ABG pH ABG pH at Pt Temp 7.430 7.434 ABG pCO2 ABG pCO2 at Pt Temp 29.9 28.5 ABG pO2 ABG pO2 at Pt Temp 37.4 36.2 ABG HCO3 ABG Total CO2 ABG O2 Saturation ABG Base Excess ABG Sodium 132 L 131 L VBG pH 7.387 7.390 VBG pCO2 34.5 L 32.9 L VBG pO2 45.9 H 44.6 H VBG HCO3 21.1 L 20.5 L VBG Total CO2 19.3 18.6 VBG O2 Saturation 80.6 79.3 VBG Base Excess -3.7 L -4.4 L Hemoglobin 8.6 L D 8.1 L Hematocrit 26.7 L 25.3 L Potassium 4.3 4.4 Glucose 283 H 280 H Ionized Calcium FiO2 80.00 80.00 Sodium Chloride Carbon Dioxide Anion Gap BUN Creatinine GFR Calculation BUN/Creatinine Ratio POC Glucose Calculated Osmolality Lactic Acid Calcium Venous Ioniz Calcium 1.03 L 0.99 L Magnesium Blood Type O POSITIVE Antibody Screen Negative Crossmatch See Detail 07/08/16 07/08/16 07/08/16 11:15 11:53 12:13 WBC RBC Hgb Hct MCV MCH MCHC RDW Plt Count 63 L D MPV Neut % (Auto) Lymph % (Auto) Lake % (Auto) Eos % (Auto) Baso % (Auto) Neut # (Auto) Lymph # (Auto) Lake # (Auto) Eos # (Auto) Baso # (Auto) Total Counted Immature Gran % Nucleated RBC % Immature Gran # Segmented Neutrophils Lymphocytes Monocytes Nucleated RBCs # Platelet Estimate Hypochromasia Microcytosis INR PT Patient/Control Mix Circ Anticoag PTT Patient Temperature 37 37 ABG pH 7.472 H ABG pH at Pt Temp 7.204 7.472 ABG pCO2 28.3 L ABG pCO2 at Pt Temp 49.2 28.3 ABG pO2 274.1 H ABG pO2 at Pt Temp 38.4 274.1 ABG HCO3 20.2 ABG Total CO2 21.1 L ABG O2 Saturation 98.7 ABG Base Excess -2.7 L ABG Sodium 135 133 L VBG pH 7.204 VBG pCO2 49.2 VBG pO2 38.4 VBG HCO3 17.2 L VBG Total CO2 18.6 VBG O2 Saturation 66.3 VBG Base Excess -8.4 L Hemoglobin 7.9 L 8.9 L Hematocrit 24.6 L 26.0 L Potassium 3.7 4.0 Glucose 319 H 260 H Ionized Calcium 1.07 L FiO2 80.00 Sodium Chloride Carbon Dioxide Anion Gap BUN Creatinine GFR Calculation BUN/Creatinine Ratio POC Glucose Calculated Osmolality Lactic Acid Calcium Venous Ioniz Calcium 1.22 Magnesium Blood Type Antibody Screen Crossmatch 07/08/16 07/08/16 07/08/16 13:17 13:17 13:17 WBC 16.3 H D RBC 3.23 L Hgb 9.7 L D Hct 28.5 L MCV 88.2 MCH 30 MCHC 34.0 RDW 14.0 Plt Count 178 D MPV 11.0 Neut % (Auto) 77.8 H Lymph % (Auto) 11.5 L Lake % (Auto) 7.1 Eos % (Auto) 1.7 Baso % (Auto) 0.4 Neut # (Auto) 12.7 H Lymph # (Auto) 1.9 Lake # (Auto) 1.2 H Eos # (Auto) 0.3 Baso # (Auto) 0.1 Total Counted Immature Gran % 1.5 Nucleated RBC % 0.0 Immature Gran # 0.24 Segmented Neutrophils Lymphocytes Monocytes Nucleated RBCs # 0.00 Platelet Estimate Hypochromasia Microcytosis INR 1.3 PT Patient/Control Mix 14.3 Circ Anticoag PTT 29.9 Patient Temperature ABG pH ABG pH at Pt Temp ABG pCO2 ABG pCO2 at Pt Temp ABG pO2 ABG pO2 at Pt Temp ABG HCO3 ABG Total CO2 ABG O2 Saturation ABG Base Excess ABG Sodium VBG pH VBG pCO2 VBG pO2 VBG HCO3 VBG Total CO2 VBG O2 Saturation VBG Base Excess Hemoglobin Hematocrit Potassium 4.3 Glucose 239 H Ionized Calcium FiO2 Sodium 142 Chloride 106 Carbon Dioxide 20 L Anion Gap 20.3 H BUN 15 Creatinine 1.60 H GFR Calculation 49 BUN/Creatinine Ratio 9.00 POC Glucose Calculated Osmolality 291.1 Lactic Acid 4.3 H Calcium 9.0 Venous Ioniz Calcium Magnesium 2.4 Blood Type Antibody Screen Crossmatch 07/08/16 07/08/16 07/08/16 13:17 15:16 16:00 WBC RBC Hgb Hct MCV MCH MCHC RDW Plt Count MPV Neut % (Auto) Lymph % (Auto) Lake % (Auto) Eos % (Auto) Baso % (Auto) Neut # (Auto) Lymph # (Auto) Lake # (Auto) Eos # (Auto) Baso # (Auto) Total Counted Immature Gran % Nucleated RBC % Immature Gran # Segmented Neutrophils Lymphocytes Monocytes Nucleated RBCs # Platelet Estimate Hypochromasia Microcytosis INR PT Patient/Control Mix Circ Anticoag PTT Patient Temperature ABG pH 7.436 ABG pH at Pt Temp ABG pCO2 28.7 L ABG pCO2 at Pt Temp ABG pO2 131.0 H ABG pO2 at Pt Temp ABG HCO3 18.9 L ABG Total CO2 19.8 L ABG O2 Saturation 98.1 ABG Base Excess -4.4 L ABG Sodium VBG pH VBG pCO2 VBG pO2 VBG HCO3 VBG Total CO2 VBG O2 Saturation VBG Base Excess Hemoglobin 10.2 L Hematocrit 30.0 L Potassium 3.9 Glucose 239 H Ionized Calcium FiO2 Sodium Chloride Carbon Dioxide Anion Gap BUN Creatinine GFR Calculation BUN/Creatinine Ratio POC Glucose 193 H Calculated Osmolality Lactic Acid 2.4 H Calcium Venous Ioniz Calcium Magnesium Blood Type Antibody Screen Crossmatch 07/08/16 07/08/16 07/08/16 16:00 17:11 18:06 WBC RBC Hgb Hct MCV MCH MCHC RDW Plt Count MPV Neut % (Auto) Lymph % (Auto) Lake % (Auto) Eos % (Auto) Baso % (Auto) Neut # (Auto) Lymph # (Auto) Lake # (Auto) Eos # (Auto) Baso # (Auto) Total Counted Immature Gran % Nucleated RBC % Immature Gran # Segmented Neutrophils Lymphocytes Monocytes Nucleated RBCs # Platelet Estimate Hypochromasia Microcytosis INR PT Patient/Control Mix Circ Anticoag PTT Patient Temperature ABG pH 7.443 ABG pH at Pt Temp ABG pCO2 31.8 L ABG pCO2 at Pt Temp ABG pO2 84.4 ABG pO2 at Pt Temp ABG HCO3 21.3 ABG Total CO2 22.2 L ABG O2 Saturation 96.2 ABG Base Excess -2.2 ABG Sodium VBG pH VBG pCO2 VBG pO2 VBG HCO3 VBG Total CO2 VBG O2 Saturation VBG Base Excess Hemoglobin 10.2 L Hematocrit 30.0 L Potassium 3.8 Glucose 200 H Ionized Calcium FiO2 Sodium Chloride Carbon Dioxide Anion Gap BUN Creatinine GFR Calculation BUN/Creatinine Ratio POC Glucose 161 H 153 H Calculated Osmolality Lactic Acid Calcium Venous Ioniz Calcium Magnesium Blood Type Antibody Screen Crossmatch 07/08/16 07/08/16 07/08/16 19:05 19:59 21:04 WBC RBC Hgb Hct MCV MCH MCHC RDW Plt Count MPV Neut % (Auto) Lymph % (Auto) Lake % (Auto) Eos % (Auto) Baso % (Auto) Neut # (Auto) Lymph # (Auto) Lake # (Auto) Eos # (Auto) Baso # (Auto) Total Counted Immature Gran % Nucleated RBC % Immature Gran # Segmented Neutrophils Lymphocytes Monocytes Nucleated RBCs # Platelet Estimate Hypochromasia Microcytosis INR PT Patient/Control Mix Circ Anticoag PTT Patient Temperature ABG pH ABG pH at Pt Temp ABG pCO2 ABG pCO2 at Pt Temp ABG pO2 ABG pO2 at Pt Temp ABG HCO3 ABG Total CO2 ABG O2 Saturation ABG Base Excess ABG Sodium VBG pH VBG pCO2 VBG pO2 VBG HCO3 VBG Total CO2 VBG O2 Saturation VBG Base Excess Hemoglobin Hematocrit Potassium Glucose Ionized Calcium FiO2 Sodium Chloride Carbon Dioxide Anion Gap BUN Creatinine GFR Calculation BUN/Creatinine Ratio POC Glucose 140 H 106 87 Calculated Osmolality Lactic Acid Calcium Venous Ioniz Calcium Magnesium Blood Type Antibody Screen Crossmatch 07/08/16 07/08/16 07/09/16 22:17 23:05 04:00 WBC 15.7 H RBC 2.83 L Hgb 8.6 L Hct 24.8 L MCV 87.6 MCH 30 MCHC 34.7 RDW 14.8 Plt Count 114 L D MPV 11.5 Neut % (Auto) 89.3 H Lymph % (Auto) 4.1 L Lake % (Auto) 6.0 Eos % (Auto) 0.0 Baso % (Auto) 0.1 Neut # (Auto) 14.0 H Lymph # (Auto) 0.6 L Lake # (Auto) 1.0 H Eos # (Auto) 0.0 Baso # (Auto) 0.0 Total Counted 100 Immature Gran % 0.5 Nucleated RBC % 0.0 Immature Gran # 0.08 Segmented Neutrophils 93 H Lymphocytes 5 L Monocytes 2 Nucleated RBCs # 0.00 Platelet Estimate Adequate Hypochromasia Slight Microcytosis 1+ INR PT Patient/Control Mix Circ Anticoag PTT Patient Temperature ABG pH ABG pH at Pt Temp ABG pCO2 ABG pCO2 at Pt Temp ABG pO2 ABG pO2 at Pt Temp ABG HCO3 ABG Total CO2 ABG O2 Saturation ABG Base Excess ABG Sodium VBG pH VBG pCO2 VBG pO2 VBG HCO3 VBG Total CO2 VBG O2 Saturation VBG Base Excess Hemoglobin Hematocrit Potassium Glucose Ionized Calcium FiO2 Sodium Chloride Carbon Dioxide Anion Gap BUN Creatinine GFR Calculation BUN/Creatinine Ratio POC Glucose 141 H 115 H Calculated Osmolality Lactic Acid Calcium Venous Ioniz Calcium Magnesium Blood Type Antibody Screen Crossmatch 07/09/16 07/09/16 04:00 04:00 WBC RBC Hgb Hct MCV MCH MCHC RDW Plt Count MPV Neut % (Auto) Lymph % (Auto) Lake % (Auto) Eos % (Auto) Baso % (Auto) Neut # (Auto) Lymph # (Auto) Lake # (Auto) Eos # (Auto) Baso # (Auto) Total Counted Immature Gran % Nucleated RBC % Immature Gran # Segmented Neutrophils Lymphocytes Monocytes Nucleated RBCs # Platelet Estimate Hypochromasia Microcytosis INR PT Patient/Control Mix Circ Anticoag PTT Patient Temperature ABG pH 7.410 ABG pH at Pt Temp ABG pCO2 31.9 L ABG pCO2 at Pt Temp ABG pO2 69.1 L ABG pO2 at Pt Temp ABG HCO3 21.2 ABG Total CO2 18.7 L ABG O2 Saturation 94.5 L ABG Base Excess -3.8 L ABG Sodium VBG pH VBG pCO2 VBG pO2 VBG HCO3 VBG Total CO2 VBG O2 Saturation VBG Base Excess Hemoglobin 8.5 L Hematocrit 26.4 L Potassium 4.1 4.0 Glucose 167 H 169 H Ionized Calcium FiO2 Sodium 142 Chloride 110 H Carbon Dioxide 21 Anion Gap 15.1 H BUN 21 H Creatinine 2.50 H GFR Calculation 29 BUN/Creatinine Ratio 8.00 POC Glucose Calculated Osmolality 289.1 Lactic Acid Calcium 7.9 L Venous Ioniz Calcium Magnesium 2.1 Blood Type Antibody Screen Crossmatch - Diagnostic Findings Procedure: Chest x-ray: report reviewed by me - EKG EKG results: interpreted by me EKG shows: sinus rhythm Quality Measures - VTE Contraindication to Pharmacological VTE Prophylaxis: Active Bleeding Specialty Discharge - Follow Up or Referrals
--- NOTE | 2016-07-09 10:58 | Physician Query Form ---
CLICK EDIT DOCUMENT TO SELECT QUERY ANSWER --> OK --> SIGN PROVIDERS: Make your selection(s) from the choices in EACH section by typing an "x" and enter comments in the comment section. Please use your independent medical judgment in providing your response. This request does not imply that any particular answer is desired or expected. CLINICAL INDICATORS: (Providers should not edit this section) The medical record indicates that the patient was admitted with CAD, had surgery , creatinine on admission was 1.90/ on the has increased to 2.50, GFR on admission was 40# / on the has decreased to 29# and the patient has been given about 7 units of blood/ bolus of NS also. Clarify which of the following most accurately represents the patient's renal status: ( ) Acute kidney injury (non-traumatic) ( ) Acute renal failure ( ) Acute renal failure with underlying Chronic Kidney Disease (CKD) - please provide stage below ( ) Acute renal failure with pathological renal lesion ( ) Acute renal failure with necrosis ( ) tubular ( ) medullary ( ) cortical ( x) CKD - please provide stage below ( ) End Stage Renal Disease ( ) Acute interstitial nephritis ( ) Hepatorenal syndrome ( ) Other, please specify: ( ) Clinically unable to determine Chronic Kidney Disease Stages Source: National Kid[employer] Disease Foundation ( ) Stage I (eGFR > or = 90) ( ) Stage II (eGFR 60 - 89) ( x) Stage III (eGFR 30 - 59) ( ) Stage IV (eGFR 15 - 29) ( ) Stage V (eGFR < 15 or dialysis) COMMENTS: PLEASE ALSO DOCUMENT RESPONSE IN PROGRESS NOTES AND/OR DISCHARGE SUMMARY Use of terms such as suspected, likely, or probable (associated with a specific diagnosis that is being evaluated, monitored, or treated as if it exists) are acceptable and can be restated in the discharge summary if not ruled out. MTDD
[2016-07-09] MEDS: INSULIN REGULAR 100 UNIT/ML SUBCUT SCH ×4 (12:15→21:41)
[2016-07-09] MEDS: ASPIRIN CHEW 81 MG TABLET PO SCH (12:17)
[2016-07-09] MEDS: CHLORHEXIDINE 0.12% ORAL RINSE 60 ML BOTTLE SWISH/SPIT SCH ×2 (12:17→21:39)
[2016-07-09] MEDS: FUROSEMIDE 40 MG TABLET PO SCH (12:17)
[2016-07-09] MEDS: ATORVASTATIN 40 MG TABLET PO SCH ×2 (12:18→20:39)
[2016-07-09] MEDS ORDERED: ASPIRIN EC 325 MG TABLET PO SCH (12:55)
[2016-07-09] MEDS ORDERED: FUROSEMIDE 40 MG/4 ML VIAL IV ONE (13:16)
[2016-07-09] MEDS ORDERED: VALPROIC ACID INJ 750 MG in SODIUM CHLORIDE 0.9% 100 ML IV SCH (14:00)
--- NOTE | 2016-07-09 14:10 | Neurology Consult Note ---
History of Present Illness History of present illness: Mr. Christopher, 71WM, with past medical history significant for CAD, hyertension, remote tobaccosim (stopped smoking 8 years ago) alcoholism. Patient presented to the emergency department of [facility] with complaints of chest pain occurring intermittently over the 3 days prior to admission, worsening in intensity and duration. He was diagnosed with NST SAVANNAH and taken to the cardiac catheterization July 06, 2016 which showed EF 60% with multiple vessels blockage. With small apical inferior akinesis. Patient was deemed best fit for CABG. He was transferred to [facility] where he underwent CABG yesterday. Postoperatively he developed myoclonic jerks and seizure-like activity. EEG was performed which revealed significantly low rhythm with spike and wave discharges suggestive of burst suppression pattern which typically seen in severe anoxic encephalopathy. He was started on Depakote which has helped a good bit. He is not on any sedation. He is not waking up and not responding. He has required so far 6-7 pints of blood. Home Medications Medication Instructions Recorded Confirmed Type Fenofibrate 160 mg PO DAILY 07/06/16 07/06/16 History Losartan Potassium 100 mg PO DAILY 07/06/16 07/06/16 History Meloxicam 15 mg PO DAILY 07/06/16 07/06/16 History Metoprolol Tartrate 25 mg PO BID 07/06/16 07/06/16 History Ranitidine Tab [Zantac Tab] 150 mg PO BID 07/06/16 07/06/16 History Allergies Allergy/AdvReac Type Severity Reaction Status Date / Time No Known Allergies Allergy Verified 07/06/16 17:13 ROS unobtainable: due to endotracheal tube, due to mental status Medical,Surgical,& Family Hx - Medical History Cardio: History of: CAD, Hypertension, [place] (NSTEMI) Gastrointestinal: History of: GERD Musculoskeletal: History of: Musculoskeletal Problems (SHOULDER SURGERY IN 1971) - Surgical History Cardiac Surgeries: Sugical HX of: Cardiac Catheterization (07/06/16) Patient Denies: Cardiac Surgery (SCHEDULED FOR CABG 07/08/16) HEENT Surgeries: Surgical HX of: Eye Surgery (CATARACT) - Family History Family History: Reports;: Family Diabetes (MOTHER) - Social History Smoking Status: Former smoker Frequency of Alcohol Use: Frequently (1-2 alcoholic beverage daily for the past 20 years) Type of Drug Use: None Exam - Constitutional Vitals: Period Temp Pulse Resp BP Sys/Nails Pulse Ox Last 24 Hr 97 F-98.4 F 77-101 10-15 86-165/45-83 96-100 Exam: GENERAL: Patient is in no acute distress. NECK: Neck is supple. There is no JVD. No carotid bruits present. No thyroid masses. CVS: Regular rate and rhythm. RESPIRATORY: Lungs are clear to auscultation without any rales or rhonchi. ABDOMEN: Soft and non-tender. Bowel sounds are present. There is no hepatosplenomegaly. EXT: There is no palpable edema. Peripheral pulses are present. Skin: No rashes Central Nervous system: General: Unresponsive on vent Speech: None Comprehension: None Facial expressions: Normal Cranial Nerves: Pupils are 3 mm very sluggishly reactive to light. Doll's head eye movements are absent. Corneals are trace positive Motor: Bulk and Tone is normal. Strength cannot be assessed Sensory: Cannot be assessed Reflexes: Depressed and symmetrical Cerebellar function: Cannot be assessed Toes: Equivocal Gait: Cannot be assessed Results - Labs CBC & BMP: 07/09/16 04:00 07/09/16 04:00 Assessment and Plan (1) Altered mental status Status: Acute Assessment and plan: EEG is suggestive of diffuse cerebral injury. The etiology of the event is not clear but it could be hypotension. It is too soon to predict any prognosis. We will go ahead and do a CAT scan head without current Repeat EEG in the morning Change Depacon to 750 mg IV every 8 Discussed at length with the family Thank you for the consult Current Visit: Yes Specialty Discharge - Follow Up or Referrals
--- NOTE | 2016-07-09 14:25 | CT Report ---
Exam: CT scan of brain without contrast Date: 07/09/2016 Indication: Nonresponsive Comparison: None Patient's classification: ICU Technical: Images were obtained from the skull base to the vertex without the use of intravenous contrast. Dose reduction was performed with decreasing kv and mA and automated exposure Total DLP: 1103.6 mGy*cm Findings: Examination reveals decreased attenuation in the right parietal-occipital lobe that appears represent an area of infarction. The brainstem and cerebellum are intact. The ventricles are unremarkable. Mild atrophy present. Inflammatory change present within the ethmoid air cells. The frontal sinuses are intact. Minimal inflammation in the sphenoid and maxillary sinus region. The mastoids are intact. Impression: 1. Findings suggestive of a acute infarction involving the right posterior temporal parietal lobe. 2. No obvious acute hemorrhage present. Critical test report called to Jermaine. PROCEDURE INTERPRETED AT [facility] DEPARTMENT OF RADIOLOGY Final Report Signed by: Dr. Harsha Simon
[2016-07-09] MEDS ORDERED: VALPROIC ACID INJ 250 MG in SODIUM CHLORIDE 0.9% 100 ML IV ONE (15:10)
--- NOTE | 2016-07-09 18:32 | Cardiothoracic Progress Note ---
Assessment and Plan (1) Coronary artery disease Status: Chronic Assessment and plan: Postoperative day 1 status post CABG 3. He is hemodynamically stable with minimal chest tube output. No pressor requirements or hemodynamic support needed. He is on minimal vent settings. I ordered him 1 unit of packed RBCs today for H&H of 10/16. Overnight the patient developed myoclonus jerking activity. I contacted neurology and they ordered an EEG which showed confirmed the activity and neurology graciously ordered him Depakote. This activity significantly improved since last night. He is localizing to pain. Dr. Cortez graciously ordered a CT scan brain today which showed parietotemporal lobe stroke. I had a lengthy discussion with the family and explained to them the new findings. I explained to him also that his prognosis currently is guarded and unclear if he would make full recovery. They understand. Current Visit: Yes (2) Coronary artery disease Status: Acute Current Visit: Yes Exam (Progress Note) - Constitutional Vitals: Period Temp Pulse Resp BP Sys/Nails Pulse Ox Last 24 Hr 97 F-98.4 F 77-101 10-23 89-151/45-83 96-100 Result/EKG - Labs CBC & BMP: 07/09/16 04:00 07/09/16 04:00 Labs: Laboratory Results - last 24 hr 07/07/16 07/08/16 07/08/16 04:11 15:16 17:11 WBC RBC Hgb Hct MCV MCH MCHC RDW Plt Count MPV Neut % (Auto) Lymph % (Auto) [place] % (Auto) Eos % (Auto) Baso % (Auto) Neut # (Auto) Lymph # (Auto) [place] # (Auto) Eos # (Auto) Baso # (Auto) Total Counted Immature Gran % Nucleated RBC % Immature Gran # Segmented Neutrophils Lymphocytes Monocytes Nucleated RBCs # Platelet Estimate Hypochromasia Microcytosis ABG pH ABG pCO2 ABG pO2 ABG HCO3 ABG Total CO2 ABG O2 Saturation ABG Base Excess Hemoglobin Hematocrit Potassium Glucose Sodium Chloride Carbon Dioxide Anion Gap BUN Creatinine GFR Calculation BUN/Creatinine Ratio POC Glucose 193 H 161 H Calculated Osmolality Calcium Magnesium Blood Type O POSITIVE Antibody Screen Negative Crossmatch See Detail 07/08/16 07/08/16 07/08/16 18:06 19:05 19:59 WBC RBC Hgb Hct MCV MCH MCHC RDW Plt Count MPV Neut % (Auto) Lymph % (Auto) [place] % (Auto) Eos % (Auto) Baso % (Auto) Neut # (Auto) Lymph # (Auto) [place] # (Auto) Eos # (Auto) Baso # (Auto) Total Counted Immature Gran % Nucleated RBC % Immature Gran # Segmented Neutrophils Lymphocytes Monocytes Nucleated RBCs # Platelet Estimate Hypochromasia Microcytosis ABG pH ABG pCO2 ABG pO2 ABG HCO3 ABG Total CO2 ABG O2 Saturation ABG Base Excess Hemoglobin Hematocrit Potassium Glucose Sodium Chloride Carbon Dioxide Anion Gap BUN Creatinine GFR Calculation BUN/Creatinine Ratio POC Glucose 153 H 140 H 106 Calculated Osmolality Calcium Magnesium Blood Type Antibody Screen Crossmatch 07/08/16 07/08/16 07/08/16 21:04 22:17 23:05 WBC RBC Hgb Hct MCV MCH MCHC RDW Plt Count MPV Neut % (Auto) Lymph % (Auto) [place] % (Auto) Eos % (Auto) Baso % (Auto) Neut # (Auto) Lymph # (Auto) [place] # (Auto) Eos # (Auto) Baso # (Auto) Total Counted Immature Gran % Nucleated RBC % Immature Gran # Segmented Neutrophils Lymphocytes Monocytes Nucleated RBCs # Platelet Estimate Hypochromasia Microcytosis ABG pH ABG pCO2 ABG pO2 ABG HCO3 ABG Total CO2 ABG O2 Saturation ABG Base Excess Hemoglobin Hematocrit Potassium Glucose Sodium Chloride Carbon Dioxide Anion Gap BUN Creatinine GFR Calculation BUN/Creatinine Ratio POC Glucose 87 141 H 115 H Calculated Osmolality Calcium Magnesium Blood Type Antibody Screen Crossmatch 07/09/16 07/09/16 07/09/16 04:00 04:00 04:00 WBC 15.7 H RBC 2.83 L Hgb 8.6 L Hct 24.8 L MCV 87.6 MCH 30 MCHC 34.7 RDW 14.8 Plt Count 114 L D MPV 11.5 Neut % (Auto) 89.3 H Lymph % (Auto) 4.1 L [place] % (Auto) 6.0 Eos % (Auto) 0.0 Baso % (Auto) 0.1 Neut # (Auto) 14.0 H Lymph # (Auto) 0.6 L [place] # (Auto) 1.0 H Eos # (Auto) 0.0 Baso # (Auto) 0.0 Total Counted 100 Immature Gran % 0.5 Nucleated RBC % 0.0 Immature Gran # 0.08 Segmented Neutrophils 93 H Lymphocytes 5 L Monocytes 2 Nucleated RBCs # 0.00 Platelet Estimate Adequate Hypochromasia Slight Microcytosis 1+ ABG pH 7.410 ABG pCO2 31.9 L ABG pO2 69.1 L ABG HCO3 21.2 ABG Total CO2 18.7 L ABG O2 Saturation 94.5 L ABG Base Excess -3.8 L Hemoglobin 8.5 L Hematocrit 26.4 L Potassium 4.1 4.0 Glucose 167 H 169 H Sodium 142 Chloride 110 H Carbon Dioxide 21 Anion Gap 15.1 H BUN 21 H Creatinine 2.50 H GFR Calculation 29 BUN/Creatinine Ratio 8.00 POC Glucose Calculated Osmolality 289.1 Calcium 7.9 L Magnesium 2.1 Blood Type Antibody Screen Crossmatch 07/09/16 16:27 WBC RBC Hgb Hct MCV MCH MCHC RDW Plt Count MPV Neut % (Auto) Lymph % (Auto) [place] % (Auto) Eos % (Auto) Baso % (Auto) Neut # (Auto) Lymph # (Auto) [place] # (Auto) Eos # (Auto) Baso # (Auto) Total Counted Immature Gran % Nucleated RBC % Immature Gran # Segmented Neutrophils Lymphocytes Monocytes Nucleated RBCs # Platelet Estimate Hypochromasia Microcytosis ABG pH ABG pCO2 ABG pO2 ABG HCO3 ABG Total CO2 ABG O2 Saturation ABG Base Excess Hemoglobin Hematocrit Potassium Glucose Sodium Chloride Carbon Dioxide Anion Gap BUN Creatinine GFR Calculation BUN/Creatinine Ratio POC Glucose 169 H Calculated Osmolality Calcium Magnesium Blood Type Antibody Screen Crossmatch Quality Measures - VTE Contraindication to Pharmacological VTE Prophylaxis: Active Bleeding Specialty Discharge - Follow Up or Referrals
[2016-07-09] MEDS: VALPROIC ACID INJ 750 MG in SODIUM CHLORIDE 0.9% 100 ML IV SCH (18:55)
--- NOTE | 2016-07-09 19:41 | Electroencephalogram ---
HISTORY: A 71-year-old patient with a history of CABG and possible seizures. INTRODUCTION: A digital EEG was performed using the standard 10/20 system of electrode placement wi th one channel of EKG monitoring. Photic stimulation is performed. DESCRIPTION OF RECORD: The background is very disorganized, consists of markedly attenuated bilater ally symmetrical rhythm. The background is frequently interrupted by burst of shock waves lasting f or 1 to 1.5 seconds. Photic stimulation does not elicit driving response. Heart rate is 56 beats per minute. IMPRESSION: 1. ABNORMAL EEG DUE TO GENERALIZED SLOWING. 2. BURST OF SUPPRESSION PATTERN. CLINICAL CORRELATION: This record is supportive of severe encephalopathy, which could be secondary to posthypoxic state, postictal state, metabolic disorder, diffuse [employer] insult, or increased intracra nial pressure. Burst suppression pattern is typically seen in hypoxic/anoxic encephalopathy/brain i njury. Clinical correlation is suggested.
[2016-07-10] MEDS: INSULIN REGULAR 100 UNIT/ML SUBCUT SCH ×6 (04:02→21:28)
[2016-07-10] MEDS: VALPROIC ACID INJ 750 MG in SODIUM CHLORIDE 0.9% 100 ML IV SCH ×3 (04:02→18:52)
[2016-07-10 04:22] LABS: ABG Base Excess -0.7 MMOL/L (-2.5-2.5); ABG HCO3 23.8 MMOL/L (20-26); ABG Oxygen Saturation 99.1 % (95-100); ABG PCO2 32.3 MM HG (35-48); ABG PH 7.453 (7.35-7.45); ABG TCO2 20.4 MMOL/L (23-27)
[2016-07-10 04:31] LABS: Basophils % 0.1 % (0.0-0.8); Hematocrit 26.1 VOL% (42.0-52.0); Hemoglobin 8.9 GM/DL (14.0-18.0); Immature Granulocytes % 1.3 %; Immature Granulocytes Absolute 0.24 #; Lymphocytes # 0.8 10*3/uL (1.4-4.0); Lymphocytes % 4.4 % (21.2-54.2); Mean Corpuscular HGB Conc 34.1 GM/DL (32-36); Mean Corpuscular Hemoglobin 30 PG (27-34); Mean Corpuscular Volume 86.4 FL (87-102); Monocytes # 1.5 10*3/uL (0.11-0.8); Monocytes % 8.4 % (1.7-12.7); Neutrophils # 15.3 10*3/uL (1.4-7.4); Neutrophils % 85.8 % (38.7-73.9); Platelet Count 121 T/CUMM (130-400); Red Blood Count 3.02 MC/CUMM (3.8-5.5); Red Cell Distribution Width 15.9 % (9.3-17.3); White Blood Count 17.9 T/CUMM (4-12)
[2016-07-10] MEDS: SODIUM CHLORIDE 0.45% 1,000 ML IV SCH ×3 (04:32→22:01)
[2016-07-10] MEDS ORDERED: LORazepam 2 MG/1 ML VIAL IV PRN (04:43)
[2016-07-10 04:52] LABS: Band Neutrophils 2 % (0-10); Lymphocytes 3 % (20-55); Segmented Neutrophils 90 % (50-85); Total Cells Counted 100
[2016-07-10 04:53] LABS: Hypochromasia 1+; Microcytosis Slight; Platelet Estimate Normal
[2016-07-10 04:56] LABS: Calcium 7.7 MG/DL (8.5-10.1); Osmolality,Calculated 286.3 MOS/KG (273-304); Potassium 4.3 MMOL/L (3.5-5.1)
--- NOTE | 2016-07-10 06:56 | XRay Report ---
Exam: XR chest 1V portable Date: 07/10/2016 4:00 AM Indication: Postop cardiac surgery Comparison: 07/09/2016 Findings:: A right IJ catheter is present. Endotracheal tube is at the level of mid clavicle. Nasogastric tube is present. 2 mediastinal drains in the left lower thoracotomy tube present. No obvious pneumothorax. ASVD present. Mild prominence the cardiac silhouette. Minimal atelectatic change medial right base. Impression: 1. Stable appearance of life support tubing 2. No obvious pneumothorax or significant infiltrates or effusions with minimal atelectatic change in the medial right base. PROCEDURE INTERPRETED AT [facility] DEPARTMENT OF RADIOLOGY Final Report Signed by: Dr. Harsha Simon
[2016-07-10] MEDS: ASPIRIN CHEW 81 MG TABLET PO SCH (08:59)
[2016-07-10] MEDS: FUROSEMIDE 40 MG TABLET PO SCH (08:59)
[2016-07-10] MEDS: CHLORHEXIDINE 0.12% ORAL RINSE 60 ML BOTTLE SWISH/SPIT SCH ×2 (09:02→21:30)
--- NOTE | 2016-07-10 09:16 | Cardiology Progress Note ---
Assessment and Plan - Time spent with patient Time spent with patient: Greater than 30 minutes (1) S/P CABG x 3 Status: Chronic Assessment and plan: SEE PLAN OF CARE LISTED BELOW Current Visit: Yes (2) Hypertension Status: Chronic Assessment and plan: SEE PLAN OF CARE LISTED BELOW Current Visit: Yes (3) Dyslipidemia Status: Chronic Assessment and plan: SEE PLAN OF CARE LISTED BELOW Current Visit: Yes (4) Coronary artery disease Status: Chronic Assessment and plan: SEE PLAN OF CARE LISTED BELOW Current Visit: Yes (5) CVA (cerebral vascular accident) Status: Acute Assessment and plan: SEE PLAN OF CARE LISTED BELOW Current Visit: Yes (6) Seizure Status: Acute Assessment and plan: SEE PLAN OF CARE LISTED BELOW Current Visit: Yes Cardiology - PN: Subj Interval history: ARDIOLOGIST: DR. STEWART ([place]) PCP: LUIS MIGUEL HEATH, SUMMARY: Mr. Christopher, 71WM, was received to [facility] in transfer from [facility] July 07, 2016. At rest, he was diagnosed with NSTEMI. He underwent cardiac catheterization July 06, 2016 and diagnosed with three-vessel coronary artery disease. For this reason, he was transferred to our facility for elective coronary artery bypass grafting. Echocardiogram from [facility] revealed LVEF 55%, mitral annular calcification is present especially at the posterior mitral valve annulus, mild MR noted, dilated aortic root (4.82 cm), RVSP 30-35 mmHg, concentric left ventricular hypertrophy. JULY 09, 2016: POD 1. Status post CABG 3 using BRASHER to LAD, SVG to OM, SVG to RCA. He remains in the cardiovascular recovery unit. It is reported he began to have suspected seizures during the night and is not following commands. He remains on vasopressors and mechanical ventilator. He does have a history of alcohol abuse and has been treated, prophylactically, for possible delirium tremens. Hemoglobin and hematocrit are stable this morning. Platelet count is 114. Creatinine has increased from 1.6 - 2.5. No arrhythmia noted. Patient's troponin peaked at 18.7. When stable, patient will need CT Head. I understand neurology has been consulted. JULY 10, 2016: POD 2. Patient's been moved from CVR to ICU. This morning, when turning patient, it is reported he had a severe seizure. When rubbing eyelashes, eyes attempt closure. Otherwise, no obvious purposeful movement at this time. VS stable. Chest tubes intact with stable drainage. Prognosis grim. ASSESSMENT/PLAN: 1. 3VCAD S/P CABG - POD 2: BRASHER-LAD, SVG-RCA, SVG-OM. Patient is critically ill. Continue supportive care. 2. HYPERTENSION - history of underlying hypertension but not requiring treatment at this time. Now off vasopressures. Will incorporate as able. 3. DYSLIPIDEMIA - LDL 122. Continue lipid-lowering agent 4. REMOTE TOBACCOISM - stopped smoking over 8 years ago. 5. NSTEMI - s/p revascularization. Continue current plan of care. 6. SEIZURES - Dr. Cortez managing. 7. CVA - parietotemporal lobe stroke. Exam (Progress Note) - Constitutional Vitals: Period Temp Pulse Resp BP Sys/Nails Pulse Ox Last 24 Hr 97.7 F-98.5 F 78-103 10-23 93-162/44-75 97-100 Exam: General: [Remains intubated] [] [Appears comfortable.] HEENT: [Normocephalic, atraumatic. Mucous membranes moist. No jaundice noted. Sclerae edematous. ] Neck: No obvious JVD/HJR, no thyromegaly or lymphadenopathy noted. Cardiac: [Regular rate and rhythm.] [Friction rub noted. No obvious murmur. Lungs: [Coarse sounds noted throughout. Chest tubes intact without obvious air leak. Symmetrical chest wall movements noted. Sternotomy dressing dry and intact. Abdomen: Soft, bowel sounds normoactive. Nondistended. No abdominal bruit or thrill noted. No masses noted. Extremities: No clubbing, cyanosis noted. [ Generalized trace edema. ] Upper extremity pulses 2+. Lower extremity pulses 2+. Capillary refill less than 3 seconds. Skin: No unusual lesions or rashes. No skin breakdown appreciated. Neuro: Does not respond to tactile or verbal stimuli. No essential tremor is appreciated at this time. No seizure activity noted at this time. Result/EKG - Labs CBC & BMP: 07/10/16 04:05 07/10/16 04:05 Lab Results: I have reviewed the past 24 hour labs Labs: Laboratory Results - last 24 hr 07/07/16 07/09/16 07/09/16 04:11 16:27 21:37 WBC RBC Hgb Hct MCV MCH MCHC RDW Plt Count MPV Neut % (Auto) Lymph % (Auto) [place] % (Auto) Eos % (Auto) Baso % (Auto) Neut # (Auto) Lymph # (Auto) [place] # (Auto) Eos # (Auto) Baso # (Auto) Total Counted Immature Gran % Nucleated RBC % Immature Gran # Segmented Neutrophils Band Neutrophils Lymphocytes Monocytes Nucleated RBCs # Platelet Estimate Hypochromasia Microcytosis Morphology Comment ABG pH ABG pCO2 ABG pO2 ABG HCO3 ABG Total CO2 ABG O2 Saturation ABG Base Excess Sodium Potassium Chloride Carbon Dioxide Anion Gap BUN Creatinine GFR Calculation BUN/Creatinine Ratio Glucose POC Glucose 169 H 153 H Calculated Osmolality Calcium Magnesium Blood Type O POSITIVE Antibody Screen Negative Crossmatch See Detail 07/10/16 07/10/16 07/10/16 01:05 04:05 04:05 WBC 17.9 H RBC 3.02 L Hgb 8.9 L Hct 26.1 L MCV 86.4 L MCH 30 MCHC 34.1 RDW 15.9 Plt Count 121 L MPV 13.0 H Neut % (Auto) 85.8 H Lymph % (Auto) 4.4 L [place] % (Auto) 8.4 Eos % (Auto) 0.0 Baso % (Auto) 0.1 Neut # (Auto) 15.3 H Lymph # (Auto) 0.8 L [place] # (Auto) 1.5 H Eos # (Auto) 0.0 Baso # (Auto) 0.0 Total Counted 100 Immature Gran % 1.3 Nucleated RBC % 0.0 Immature Gran # 0.24 Segmented Neutrophils 90 H Band Neutrophils 2 Lymphocytes 3 L Monocytes 5 Nucleated RBCs # 0.00 Platelet Estimate Normal Hypochromasia 1+ Microcytosis Slight Morphology Comment ABG pH ABG pCO2 ABG pO2 ABG HCO3 ABG Total CO2 ABG O2 Saturation ABG Base Excess Sodium 141 Potassium 4.3 Chloride 107 Carbon Dioxide 23 Anion Gap 15.3 H BUN 24 H Creatinine 2.00 H GFR Calculation 30 BUN/Creatinine Ratio 12.00 Glucose 143 H POC Glucose 153 H Calculated Osmolality 286.3 Calcium 7.7 L Magnesium 2.0 Blood Type Antibody Screen Crossmatch 07/10/16 07/10/16 07/10/16 04:05 04:11 07:34 WBC RBC Hgb Hct MCV MCH MCHC RDW Plt Count MPV Neut % (Auto) Lymph % (Auto) [place] % (Auto) Eos % (Auto) Baso % (Auto) Neut # (Auto) Lymph # (Auto) [place] # (Auto) Eos # (Auto) Baso # (Auto) Total Counted Immature Gran % Nucleated RBC % Immature Gran # Segmented Neutrophils Band Neutrophils Lymphocytes Monocytes Nucleated RBCs # Platelet Estimate Hypochromasia Microcytosis Morphology Comment ABG pH 7.453 H ABG pCO2 32.3 L ABG pO2 130.0 H ABG HCO3 23.8 ABG Total CO2 20.4 L ABG O2 Saturation 99.1 ABG Base Excess -0.7 Sodium Potassium Chloride Carbon Dioxide Anion Gap BUN Creatinine GFR Calculation BUN/Creatinine Ratio Glucose POC Glucose 152 H 153 H Calculated Osmolality Calcium Magnesium Blood Type Antibody Screen Crossmatch - EKG EKG results: interpreted by me EKG shows: sinus rhythm Quality Measures - VTE Contraindication to Pharmacological VTE Prophylaxis: Active Bleeding Specialty Discharge - Follow Up or Referrals
--- NOTE | 2016-07-10 11:09 | Pulmonology Consult Note ---
Assessment and Plan (1) Renal insufficiency Status: Acute Assessment and plan: The patient's creatinine is 2.0 and urine output has improved. Current Visit: Yes (2) Former smoker Status: Acute Assessment and plan: Patient quit smoking several years ago but may have a component of COPD. He is stable on the ventilator at present. Current Visit: Yes (3) Coronary artery disease Status: Chronic Assessment and plan: Patient has significant coronary artery disease. Current Visit: Yes (4) S/P CABG x 3 Status: Chronic Assessment and plan: The patient is status post CABG 3 and apparently required an aortic repair. He is hemodynamically stable at present. Current Visit: Yes (5) Hypertension Status: Chronic Assessment and plan: The patient blood pressure stable at present. Current Visit: Yes (6) CVA (cerebral vascular accident) Status: Acute Assessment and plan: Patient has been having seizures and is getting medications. He apparently has had a right parietal CVA. Current Visit: Yes (7) Seizure Status: Acute Assessment and plan: He is getting seizure medicines and is followed by neurology. Current Visit: Yes (8) On mechanically assisted ventilation Status: Acute Assessment and plan: The patient has very good gases on the ventilator and will just watch for now. Current Visit: Yes History of Present Illness Chief complaint: Ventilator management History of present illness: Mr. Christopher is a 71 year old white male that came in with an acute DE and was found to have triple-vessel coronary artery disease. He was transferred from [facility] and had CABG 2 days ago. Apparently he had a very abnormal aorta and this had to be repaired at surgery. Patient was hypotensive during surgery and postop has had seizures and looks like he has a right parietal CVA. The patient is now sedated on the ventilator. The patient has a history of cigarette smoking along with hypertension and hyperlipidemia. He was not having any previous lung problems. His oxygenation is adequate and is stable on the ventilator at present. Home Medications Medication Instructions Recorded Confirmed Type Fenofibrate 160 mg PO DAILY 07/06/16 07/06/16 History Losartan Potassium 100 mg PO DAILY 07/06/16 07/06/16 History Meloxicam 15 mg PO DAILY 07/06/16 07/06/16 History Metoprolol Tartrate 25 mg PO BID 07/06/16 07/06/16 History Ranitidine Tab [Zantac Tab] 150 mg PO BID 07/06/16 07/06/16 History Allergies Allergy/AdvReac Type Severity Reaction Status Date / Time No Known Allergies Allergy Verified 07/06/16 17:13 ROS unobtainable: due to endotracheal tube (According to the chart, the patient was having shortness of breath on exertion and fatigue.) Exam (Pulmonay) H&P - Constitutional Vitals: Period Temp Pulse Resp BP Sys/Nails Pulse Ox Last 24 Hr 97.7 F-98.5 F 78-103 10-23 93-162/44-75 97-100 General appearance: normal weight, other (Patient is sedated on the ventilator at present) - Head Head exam: Present: normal inspection, normocephalic - Eye Eye exam: Present: other (Eyes Deviate upward). Absent: scleral icterus Pupils: Present: JENNIFER - ENT ENT exam: Present: other (ET tube is in good position) - Neck Neck exam: Present: normal inspection. Absent: lymphadenopathy, thyromegaly - Respiratory Respiratory exam: Present: clear to auscultation bilaterally. Absent: rhonchi, wheezes - Cardiovascular Cardiovascular exam: Present: regular rate and rhythm. Absent: gallop, systolic murmur - GI/Abdominal GI/Abdominal exam: Present: soft. Absent: distended, organomegaly, tenderness - Extremities Exam Extremities exam: Present: edema (Has trace edema of the legs). Absent: calf tenderness - Neurological Exam Neurological exam: Present: altered (Patient is sedated on the ventilator. He is getting seizure medicines.) - Skin Skin exam: Present: warm, dry Medical,Surgical,& Family Hx - Medical History Cardio: History of: CAD, Hypertension, [place] (NSTEMI) Gastrointestinal: History of: GERD Musculoskeletal: History of: Musculoskeletal Problems (SHOULDER SURGERY IN 1971) - Surgical History Cardiac Surgeries: Sugical HX of: Cardiac Catheterization (07/06/16) Patient Denies: Cardiac Surgery (SCHEDULED FOR CABG 07/08/16) HEENT Surgeries: Surgical HX of: Eye Surgery (CATARACT) - Family History Family History: Reports;: Family Diabetes (MOTHER) - Social History Smoking Status: Former smoker Frequency of Alcohol Use: Frequently (1-2 alcoholic beverage daily for the past 20 years) Type of Drug Use: None Results - Labs CBC & BMP: 07/10/16 04:05 07/10/16 04:05 Labs: His PO2 is 130 on 40% O2. His PCO2 is 32 with a pH of 7.45 - Diagnostic Findings Procedure: Chest x-ray: image reviewed by me, report reviewed by me (Chest x- ray is clear) Quality Measures - VTE Contraindication to Pharmacological VTE Prophylaxis: Active Bleeding Specialty Discharge - Follow Up or Referrals
[2016-07-10] MEDS: MINERAL OIL/PETROLATUM OPH OINT 3.5 GM TUBE BOTH EYES PRN ×2 (12:37→21:30)
[2016-07-10] MEDS ORDERED: GLUCAGON 1 MG VIAL IM PRN (14:19)
--- NOTE | 2016-07-10 15:19 | XRay Report ---
Portable chest Date: 07/10/2016 Clinical history: Endotracheal tube placement Comparison: 07/10/2016 Technique: Portable AP sitting chest Findings: The heart is minimally enlarged with prior median sternotomy. The supporting devices are in satisfactory position with no definite pneumothorax. Residual atelectasis at the lung bases. Stable mediastinal and osseous structures. Impression: The endotracheal tube remains in satisfactory position. Recent median sternotomy the other support devices unchanged in position. Residual atelectasis at the lung bases. PROCEDURE INTERPRETED AT [facility] DEPARTMENT OF RADIOLOGY Final Report Signed by: Dr. Yeimi Fox
--- NOTE | 2016-07-10 15:26 | Neurology Progress Note ---
Neurology - PN : Subjective Interval history: Last night event noted. Pt did develped back to back seizures again. he was started on keppra which stopped the seizures. Repeat EEG is unchanged. Exam (Progress Note) - Constitutional Vitals: Period Temp Pulse Resp BP Sys/Nails Pulse Ox Last 24 Hr 97.7 F-98.5 F 79-103 10-23 93-162/44-75 97-100 Exam: GENERAL: Patient is in no acute distress. NECK: Neck is supple. There is no JVD. No carotid bruits present. No thyroid masses. CVS: Regular rate and rhythm. RESPIRATORY: Lungs are clear to auscultation without any rales or rhonchi. ABDOMEN: Soft and non-tender. Bowel sounds are present. There is no hepatosplenomegaly. EXT: There is no palpable edema. Peripheral pulses are present. Skin: No rashes Central Nervous system: General: Unresponsive on vent Speech: None Comprehension: None Facial expressions: Normal Cranial Nerves: Pupils are 3 mm very sluggishly reactive to light. Doll's head eye movements are absent. Corneals are trace positive Motor: Bulk and Tone is normal. Strength cannot be assessed Sensory: Cannot be assessed Reflexes: Depressed and symmetrical Cerebellar function: Cannot be assessed Toes: Equivocal Gait: Cannot be assessed Results - Labs CBC & BMP: 07/10/16 04:05 07/10/16 04:05 Assessment and Plan (1) Altered mental status Status: Acute Assessment and plan: Cont depacon and keppra at the same dose No more seizures reported. Repeat CT head in a.m Cont supportive treatment. Prognosis is guarded. Current Visit: Yes Quality Measures - VTE Contraindication to Pharmacological VTE Prophylaxis: Active Bleeding Specialty Discharge - Follow Up or Referrals
[2016-07-10] MEDS: PROPOFOL 1,000 MG/100 ML BOTTLE IV SCH (17:05)
--- NOTE | 2016-07-10 19:33 | Electroencephalogram ---
THIS IS A FOLLOWUP EEG. HISTORY: A 76-bdzz-[id number]-old patient with a history of change in mental status. INTRODUCTION: A digital EEG was performed using the standard 10/20 system of electrode placement wi th one channel of EKG monitoring. Photic stimulation is performed. DESCRIPTION OF RECORD: The background is markedly attenuated bilaterally symmetrical rhythm. Inter mittent burst of 3 to 4 hertz delta activity seen throughout the record. There are no sharp wave, s pike or wave activity seen. Heart rate is 56 beats per minute. IMPRESSION: ABNORMAL EEG DUE TO: 1. GENERALIZED SLOWING. 2. BURST SUPPRESSION PATTERN. CLINICAL CORRELATION: This record is supportive severe encephalopathy, could be secondary to anoxic brain injury, postictal state, posthypoxic state, metabolic disorder. No significant improvement s een since the last study performed 2 days ago. Clinical correlation is suggested.
[2016-07-10] MEDS: ATORVASTATIN 40 MG TABLET PO SCH (21:29)
[2016-07-11] MEDS: INSULIN REGULAR 100 UNIT/ML SUBCUT SCH ×6 (00:27→20:10)
[2016-07-11] MEDS: MORPHINE 2 MG/1 ML SYRINGE IV PRN ×2 (01:37→05:45)
[2016-07-11] MEDS: VALPROIC ACID INJ 750 MG in SODIUM CHLORIDE 0.9% 100 ML IV SCH ×3 (02:31→18:30)
[2016-07-11 05:29] LABS: ABG Base Excess 0.4 MMOL/L (-2.5-2.5); ABG HCO3 24.8 MMOL/L (20-26); ABG Oxygen Saturation 98.8 % (95-100); ABG PCO2 32.8 MM HG (35-48); ABG PH 7.467 (7.35-7.45); ABG TCO2 21.7 MMOL/L (23-27)
[2016-07-11 05:31] LABS: Basophils % 0.1 % (0.0-0.8); Hematocrit 28.3 VOL% (42.0-52.0); Hemoglobin 9.5 GM/DL (14.0-18.0); Immature Granulocytes % 1.3 %; Immature Granulocytes Absolute 0.25 #; Lymphocytes # 1.2 10*3/uL (1.4-4.0); Mean Corpuscular HGB Conc 33.6 GM/DL (32-36); Mean Corpuscular Hemoglobin 30 PG (27-34); Mean Corpuscular Volume 87.9 FL (87-102); Mean Platelet Volume 12.8 FL (9.6-12.0); Monocytes # 1.8 10*3/uL (0.11-0.8); Neutrophils # 16.6 10*3/uL (1.4-7.4); Neutrophils % 83.6 % (38.7-73.9); Platelet Count 149 T/CUMM (130-400); Red Blood Count 3.22 MC/CUMM (3.8-5.5); Red Cell Distribution Width 15.3 % (9.3-17.3); White Blood Count 19.8 T/CUMM (4-12)
[2016-07-11 06:01] LABS: Osmolality,Calculated 288.3 MOS/KG (273-304); Potassium 4.2 MMOL/L (3.5-5.1)
[2016-07-11 06:21] LABS: Phosphorous 3.2 MG/DL (2.5-4.9); Prealbumin 12.2 MG/DL (20-40)
--- NOTE | 2016-07-11 06:44 | XRay Report ---
Portable chest Date: 07/12/2015 Clinical history: Postop, evaluate for pneumothorax Comparison: 07/10/2016 Technique: Portable AP sitting chest Findings: The heart remains borderline in size with recent median sternotomy. Supportive devices are in satisfactory position with no pneumothorax. Residual atelectasis at the lung bases. Stable mediastinum and osseous structures. Impression: Recent median sternotomy with supportive devices remaining in satisfactory position. Residual atelectasis at the lung bases with no pneumothorax. PROCEDURE INTERPRETED AT [facility] DEPARTMENT OF RADIOLOGY Final Report Signed by: Dr. Yeimi Fox
[2016-07-11] MEDS: SODIUM CHLORIDE 0.45% 1,000 ML IV SCH (07:15)
--- NOTE | 2016-07-11 07:59 | Pulmonology Progress Note ---
Pulmonary - PN: Subj Interval history: The patient is a 71-year-old has very severe coronary artery disease and had triple-vessel CABG earlier in the week. He apparently had a tear in his aorta and had bleeding and it was a difficult case. Postop he has had seizures and looks like he has a right parietal CVA. He is going for another CT scan today. He has not had any further seizure activity in the last 24 hours and is comfortable on the ventilator. He is hemodynamically stable and has good oxygenation. His chest x-ray is clear. He is stable on ventilatory support. Exam (Progress Note) - Constitutional Vitals: Period Temp Pulse Resp BP Sys/Nails Pulse Ox Last 24 Hr 97.4 F-100.0 F 81-128 10-22 89-169/42-65 97-100 Exam: General appearance: normal weight, other (Patient is sedated on the ventilator at present. His blood pressure and heart rate are stable.) - Head Head exam: Present: normal inspection, normocephalic - Eye Eye exam: Present: other (Eyes Deviate upward). Absent: scleral icterus Pupils: Present: JENNIFER - ENT ENT exam: Present: other (ET tube is in good position) - Neck Neck exam: Present: normal inspection. Absent: lymphadenopathy, thyromegaly - Respiratory Respiratory exam: Present: clear to auscultation bilaterally. He has good breath sounds bilaterally. Absent: rhonchi, wheezes - Cardiovascular Cardiovascular exam: Present: regular rate and rhythm. Sternal wound is stable. Absent: gallop, systolic murmur - GI/Abdominal GI/Abdominal exam: Present: soft. Absent: distended, organomegaly, tenderness - Extremities Exam Extremities exam: Present: edema (Has trace edema of the legs). Absent: calf tenderness - Neurological Exam Neurological exam: Present: altered (Patient is sedated on the ventilator. He has little movement so far. He is getting seizure medicines.) - Skin Skin exam: Present: warm, dry Results - Labs CBC & BMP: 07/11/16 05:00 07/11/16 05:00 Labs: His PO2 is 126 with a PCO2 of 32 and a pH of 7.46. - Diagnostic Findings Procedure: Chest x-ray: image reviewed by me, report reviewed by me (Chest x- ray is clear) Assessment and Plan (1) Renal insufficiency Status: Acute Assessment and plan: The patient's creatinine is 1.7 and urine output has improved. Current Visit: Yes (2) Former smoker Status: Acute Assessment and plan: Patient quit smoking several years ago but may have a component of COPD. He is stable on the ventilator at present. His chest x-ray is clear Current Visit: Yes (3) Coronary artery disease Status: Chronic Assessment and plan: Patient has significant coronary artery disease. Current Visit: Yes (4) S/P CABG x 3 Status: Chronic Assessment and plan: The patient is status post CABG 3 and apparently required an aortic repair. He is hemodynamically stable at present. Current Visit: Yes (5) Hypertension Status: Chronic Assessment and plan: The patient blood pressure stable at present. Current Visit: Yes (6) CVA (cerebral vascular accident) Status: Acute Assessment and plan: Patient has been having seizures and is getting medications. He apparently has had a right parietal CVA. He still does not do much movement. He is getting another CT of his head today. Current Visit: Yes (7) Seizure Status: Acute Assessment and plan: He is getting seizure medicines and is followed by neurology. Current Visit: Yes (8) On mechanically assisted ventilation Status: Acute Assessment and plan: The patient has very good gases on the ventilator and his chest x-ray is clear. We will continue ventilatory support for now. Current Visit: Yes Specialty Discharge - Follow Up or Referrals
--- NOTE | 2016-07-11 08:30 | Cardiology Progress Note ---
Assessment and Plan - Time spent with patient Time spent with patient: Greater than 30 minutes (1) S/P CABG x 3 Status: Chronic Assessment and plan: SEE PLAN OF CARE LISTED BELOW Current Visit: Yes (2) Hypertension Status: Chronic Assessment and plan: SEE PLAN OF CARE LISTED BELOW Current Visit: Yes (3) Dyslipidemia Status: Chronic Assessment and plan: SEE PLAN OF CARE LISTED BELOW Current Visit: Yes (4) Coronary artery disease Status: Chronic Assessment and plan: SEE PLAN OF CARE LISTED BELOW Current Visit: Yes (5) CVA (cerebral vascular accident) Status: Acute Assessment and plan: SEE PLAN OF CARE LISTED BELOW Current Visit: Yes (6) Seizure Status: Acute Assessment and plan: SEE PLAN OF CARE LISTED BELOW Current Visit: Yes Cardiology - PN: Subj Interval history: RUBBER GOODS TESTER: DR. STEWART ([place]) PCP: LUIS MIGUEL HEATH, [place] SUMMARY: Mr. Christopher, 71WM, was received to [facility] in transfer from [facility] July 07, 2016. At rest, he was diagnosed with NSTEMI. He underwent cardiac catheterization July 06, 2016 and diagnosed with three-vessel coronary artery disease. For this reason, he was transferred to our facility for elective coronary artery bypass grafting. Echocardiogram from [place] revealed LVEF 55%, mitral annular calcification is present especially at the posterior mitral valve annulus, mild MR noted, dilated aortic root (4.82 cm), RVSP 30-35 mmHg, concentric left ventricular hypertrophy. JULY 09, 2016: POD 1. Status post CABG 3 using BRASHER to LAD, SVG to OM, SVG to RCA. He remains in the cardiovascular recovery unit. It is reported he began to have suspected seizures during the night and is not following commands. He remains on vasopressors and mechanical ventilator. He does have a history of alcohol abuse and has been treated, prophylactically, for possible delirium tremens. Hemoglobin and hematocrit are stable this morning. Platelet count is 114. Creatinine has increased from 1.6 - 2.5. No arrhythmia noted. Patient's troponin peaked at 18.7. When stable, patient will need CT Head. I understand neurology has been consulted. JULY 10, 2016: POD 2. Patient's been moved from CVR to ICU. This morning, when turning patient, it is reported he had a severe seizure. When rubbing eyelashes, eyes attempt closure. Otherwise, no obvious purposeful movement at this time. VS stable. Chest tubes intact with stable drainage. Prognosis grim. JULY 11, 2016: POD 3. Dr. Cortez is following for seizures and anoxic brain injury. Now taking Keppra and improvement in seizure activity is noted. Vital signs are stable. Chest tube drainage stable, three chest tubes intact. Vital signs stable at this time. Not requiring pressors. No arrythmia noted. Labs are stable. H&H 9.5/28.3. Creatinine improved from 2.0 to 1.7 overnight. WBC 19.8 (up from 17.9). Temp 99.9 during the night. ASSESSMENT/PLAN: 1. 3VCAD S/P CABG - POD 3: BRASHER-LAD, SVG-RCA, SVG-OM. Continue ASA daily. Patient is critically ill. Continue supportive care. 2. HYPERTENSION - history of underlying hypertension but unable to tolerate introduction of anti-hypertensive yet. 3. DYSLIPIDEMIA - LDL 122. Continue Atorvastatin 4. REMOTE TOBACCOISM - stopped smoking over 8 years ago. 5. NSTEMI - s/p revascularization. Continue current plan of care. 6. SEIZURES - Dr. Cortez managing. 7. CVA - parietotemporal lobe stroke. Appreciate neurologist assistance. Exam (Progress Note) - Constitutional Vitals: Period Temp Pulse Resp BP Sys/Nails Pulse Ox Last 24 Hr 97.4 F-100.0 F 81-128 10-22 89-169/42-65 97-100 Exam: General: [Remains intubated] [] [Appears comfortable.] HEENT: [Normocephalic, atraumatic. Mucous membranes moist. No jaundice noted. Sclerae edematous. [place] sump through left nares. ] Neck: No obvious JVD/HJR, no thyromegaly or lymphadenopathy noted. Cardiac: [Regular rate and rhythm.] [Friction rub noted. No obvious murmur. Lungs: [Coarse sounds noted throughout. Chest tubes intact without obvious air leak. Symmetrical chest wall movements noted. Sternotomy dressing dry and intact. Abdomen: Soft, bowel sounds normoactive. No abdominal bruit or thrill noted. No masses noted. Extremities: No clubbing, cyanosis noted. [ Generalized trace edema. ] Upper extremity pulses 2+. Lower extremity pulses 2+. Capillary refill less than 3 seconds. Skin: No unusual lesions or rashes. No skin breakdown appreciated. Neuro: Does not respond to tactile or verbal stimuli. No essential tremor is appreciated at this time. No seizure activity noted at this time. Result/EKG - Labs CBC & BMP: 07/11/16 05:00 07/11/16 05:00 Lab Results: I have reviewed the past 24 hour labs Labs: Laboratory Results - last 24 hr 07/09/16 07/09/16 07/09/16 00:14 00:22 01:01 WBC RBC Hgb Hct MCV MCH MCHC RDW Plt Count MPV Neut % (Auto) Lymph % (Auto) Williams % (Auto) Eos % (Auto) Baso % (Auto) Neut # (Auto) Lymph # (Auto) Williams # (Auto) Eos # (Auto) Baso # (Auto) Immature Gran % Nucleated RBC % Immature Gran # Nucleated RBCs # ABG pH ABG pCO2 ABG pO2 ABG HCO3 ABG Total CO2 ABG O2 Saturation ABG Base Excess Sodium Potassium Chloride Carbon Dioxide Anion Gap BUN Creatinine GFR Calculation BUN/Creatinine Ratio Glucose POC Glucose 49 L* 278 H 242 H Calculated Osmolality Calcium Phosphorus Magnesium Prealbumin 07/09/16 07/09/16 07/09/16 02:02 03:09 04:03 WBC RBC Hgb Hct MCV MCH MCHC RDW Plt Count MPV Neut % (Auto) Lymph % (Auto) Williams % (Auto) Eos % (Auto) Baso % (Auto) Neut # (Auto) Lymph # (Auto) Williams # (Auto) Eos # (Auto) Baso # (Auto) Immature Gran % Nucleated RBC % Immature Gran # Nucleated RBCs # ABG pH ABG pCO2 ABG pO2 ABG HCO3 ABG Total CO2 ABG O2 Saturation ABG Base Excess Sodium Potassium Chloride Carbon Dioxide Anion Gap BUN Creatinine GFR Calculation BUN/Creatinine Ratio Glucose POC Glucose 219 H 188 H 173 H Calculated Osmolality Calcium Phosphorus Magnesium Prealbumin 07/09/16 07/09/16 07/09/16 05:10 05:59 06:57 WBC RBC Hgb Hct MCV MCH MCHC RDW Plt Count MPV Neut % (Auto) Lymph % (Auto) Williams % (Auto) Eos % (Auto) Baso % (Auto) Neut # (Auto) Lymph # (Auto) Williams # (Auto) Eos # (Auto) Baso # (Auto) Immature Gran % Nucleated RBC % Immature Gran # Nucleated RBCs # ABG pH ABG pCO2 ABG pO2 ABG HCO3 ABG Total CO2 ABG O2 Saturation ABG Base Excess Sodium Potassium Chloride Carbon Dioxide Anion Gap BUN Creatinine GFR Calculation BUN/Creatinine Ratio Glucose POC Glucose 170 H 143 H 136 H Calculated Osmolality Calcium Phosphorus Magnesium Prealbumin 07/09/16 07/09/16 07/10/16 08:56 12:01 11:36 WBC RBC Hgb Hct MCV MCH MCHC RDW Plt Count MPV Neut % (Auto) Lymph % (Auto) Williams % (Auto) Eos % (Auto) Baso % (Auto) Neut # (Auto) Lymph # (Auto) Williams # (Auto) Eos # (Auto) Baso # (Auto) Immature Gran % Nucleated RBC % Immature Gran # Nucleated RBCs # ABG pH ABG pCO2 ABG pO2 ABG HCO3 ABG Total CO2 ABG O2 Saturation ABG Base Excess Sodium Potassium Chloride Carbon Dioxide Anion Gap BUN Creatinine GFR Calculation BUN/Creatinine Ratio Glucose POC Glucose 126 H 168 H 151 H Calculated Osmolality Calcium Phosphorus Magnesium Prealbumin 07/10/16 07/10/16 07/10/16 15:47 20:42 23:43 WBC RBC Hgb Hct MCV MCH MCHC RDW Plt Count MPV Neut % (Auto) Lymph % (Auto) Williams % (Auto) Eos % (Auto) Baso % (Auto) Neut # (Auto) Lymph # (Auto) Williams # (Auto) Eos # (Auto) Baso # (Auto) Immature Gran % Nucleated RBC % Immature Gran # Nucleated RBCs # ABG pH ABG pCO2 ABG pO2 ABG HCO3 ABG Total CO2 ABG O2 Saturation ABG Base Excess Sodium Potassium Chloride Carbon Dioxide Anion Gap BUN Creatinine GFR Calculation BUN/Creatinine Ratio Glucose POC Glucose 124 H 160 H 144 H Calculated Osmolality Calcium Phosphorus Magnesium Prealbumin 07/11/16 07/11/16 07/11/16 05:00 05:00 05:00 WBC 19.8 H RBC 3.22 L Hgb 9.5 L Hct 28.3 L MCV 87.9 MCH 30 MCHC 33.6 RDW 15.3 Plt Count 149 D MPV 12.8 H Neut % (Auto) 83.6 H Lymph % (Auto) 6.0 L Williams % (Auto) 9.0 Eos % (Auto) 0.0 Baso % (Auto) 0.1 Neut # (Auto) 16.6 H Lymph # (Auto) 1.2 L Williams # (Auto) 1.8 H Eos # (Auto) 0.0 Baso # (Auto) 0.0 Immature Gran % 1.3 Nucleated RBC % 0.0 Immature Gran # 0.25 Nucleated RBCs # 0.00 ABG pH ABG pCO2 ABG pO2 ABG HCO3 ABG Total CO2 ABG O2 Saturation ABG Base Excess Sodium 141 Potassium 4.2 Chloride 106 Carbon Dioxide 23 Anion Gap 16.2 H BUN 32 H Creatinine 1.70 H GFR Calculation 45 BUN/Creatinine Ratio 18.00 Glucose 124 H POC Glucose Calculated Osmolality 288.3 Calcium 8.0 L Phosphorus 3.2 Magnesium 2.0 Prealbumin 12.2 L 07/11/16 07/11/16 07/11/16 05:00 06:03 07:26 WBC RBC Hgb Hct MCV MCH MCHC RDW Plt Count MPV Neut % (Auto) Lymph % (Auto) Williams % (Auto) Eos % (Auto) Baso % (Auto) Neut # (Auto) Lymph # (Auto) Williams # (Auto) Eos # (Auto) Baso # (Auto) Immature Gran % Nucleated RBC % Immature Gran # Nucleated RBCs # ABG pH 7.467 H ABG pCO2 32.8 L ABG pO2 126.0 H ABG HCO3 24.8 ABG Total CO2 21.7 L ABG O2 Saturation 98.8 ABG Base Excess 0.4 Sodium Potassium Chloride Carbon Dioxide Anion Gap BUN Creatinine GFR Calculation BUN/Creatinine Ratio Glucose POC Glucose 121 H 137 H Calculated Osmolality Calcium Phosphorus Magnesium Prealbumin - EKG EKG results: interpreted by me EKG shows: sinus rhythm Quality Measures - VTE Contraindication to Pharmacological VTE Prophylaxis: Active Bleeding Specialty Discharge - Follow Up or Referrals
--- NOTE | 2016-07-11 08:45 | CT Report ---
Referring physician: Basil Hale MD Exam: CT brain without contrast Date: 07/11/2016 Comparison: 07/09/2016 Reason: CVA Technique: Axial images of the head were obtained without the use of contrast. Total DLP was 1081.10 mGy*cm. Findings: No hydrocephalus or midline shift is present. Progressive hypodensity in the right temporal, parietal, and occipital lobes. Also it appears that there are progressive hypodensities in both parietal lobes adjacent to the posterior interhemispheric fissure. Arterial calcifications with persistent. No evidence of hemorrhage, mass, or extracerebral collection. The osseous structures appear intact. The mastoid air cells are clear.Persistent mucosal thickening/fluid in the paranasal sinuses. Impression: Aging of the ischemic infarcts involving the right temporal, parietal, and occipital lobes. Additional bilateral ischemic infarcts in both parietal lobes adjacent to the posterior interhemispheric fissure. No evidence of hemorrhage. Sinusitis. The CT exam was performed using one or more of the following dose reduction techniques: Automated exposure control and adjustment of the mA and/or kV according to patient size. PROCEDURE INTERPRETED AT [facility] DEPARTMENT OF RADIOLOGY Final Report Signed by: Dr. Yeimi Fox
[2016-07-11] MEDS: FUROSEMIDE 40 MG TABLET PO SCH (09:45)
[2016-07-11] MEDS: ASPIRIN CHEW 81 MG TABLET PO SCH (09:45)
[2016-07-11] MEDS: CHLORHEXIDINE 0.12% ORAL RINSE 60 ML BOTTLE SWISH/SPIT SCH ×2 (09:45→21:37)
--- NOTE | 2016-07-11 10:36 | Physician Query Form ---
CLICK EDIT DOCUMENT TO SELECT QUERY ANSWER --> OK --> SIGN Faviola Knutson RN, CCDS Certified Clinical [employer] W) [phone] (f) [phone] [email or web address]: Make your selection(s) from the choices in EACH section by typing an "x" and enter comments in the comment section. Please use your independent medical judgment in providing your response. This request does not imply that any particular answer is desired or expected. CLINICAL INDICATORS: (Providers should not edit this section) The medical record indicates that the patient was admitted with CAD, had surgery , "some bleeding noted from the cannulation site on the aorta which was repaired with multiple pledgets stitches" and the patient was given eight units of blood. Based on the above, could you clarify which of the following conditions you are evaluating, treating, and/or monitoring? ( ) Blood loss anemia ( ) acute ( ) chronic ( ) acute on chronic ( x) Acute blood loss anemia on baseline chronic anemia ( ) Acute blood loss anemia as a complication of a procedure ( ) Iron deficiency anemia not associated with blood loss (x ) Dilutional anemia due to IV fluids ( ) Anemia due to chemotherapy ( ) Anemia due to neoplastic disease ( ) Anemia due to chronic kidney disease ( ) Pernicious anemia ( ) Aplastic anemia ( ) Hemolytic anemia ( ) immune ( ) non-immune - please specify cause: ( ) Anemia due to other condition, please specify: ( ) Clinically unable to determine COMMENTS: PLEASE ALSO DOCUMENT RESPONSE IN PROGRESS NOTES AND/OR DISCHARGE SUMMARY Use of terms such as suspected, likely, or probable (associated with a specific diagnosis that is being evaluated, monitored, or treated as if it exists) are acceptable and can be restated in the discharge summary if not ruled out. MTDD
[2016-07-11] MEDS: METOPROLOL TARTRATE 5 MG/5 ML VIAL IV SCH ×2 (12:15→18:15)
--- NOTE | 2016-07-11 16:36 | Cardiothoracic Progress Note ---
Assessment and Plan (1) Coronary artery disease Status: Chronic Assessment and plan: Postoperative day 3 status post CABG 3. He is hemodynamically stable with minimal chest tube output. No pressor requirements or hemodynamic support needed. He is on minimal vent settings. The patient has significant improvement of his neurological status is localizing in his drawing of 4 extremities and he has some spontaneous movements. This it was explained to the family however was also explained to them that his prognosis continues to be guarded. Current Visit: Yes (2) Coronary artery disease Status: Acute Current Visit: Yes Exam (Progress Note) - Constitutional Vitals: Period Temp Pulse Resp BP Sys/Nails Pulse Ox Last 24 Hr 97.8 F-100.0 F 81-128 10-22 93-141/45-63 97-100 Result/EKG - Labs CBC & BMP: 07/11/16 05:00 07/11/16 05:00 Labs: Laboratory Results - last 24 hr 07/10/16 07/10/16 07/11/16 20:42 23:43 05:00 WBC 19.8 H RBC 3.22 L Hgb 9.5 L Hct 28.3 L MCV 87.9 MCH 30 MCHC 33.6 RDW 15.3 Plt Count 149 D MPV 12.8 H Neut % (Auto) 83.6 H Lymph % (Auto) 6.0 L Foster % (Auto) 9.0 Eos % (Auto) 0.0 Baso % (Auto) 0.1 Neut # (Auto) 16.6 H Lymph # (Auto) 1.2 L Foster # (Auto) 1.8 H Eos # (Auto) 0.0 Baso # (Auto) 0.0 Immature Gran % 1.3 Nucleated RBC % 0.0 Immature Gran # 0.25 Nucleated RBCs # 0.00 ABG pH ABG pCO2 ABG pO2 ABG HCO3 ABG Total CO2 ABG O2 Saturation ABG Base Excess Sodium Potassium Chloride Carbon Dioxide Anion Gap BUN Creatinine GFR Calculation BUN/Creatinine Ratio Glucose POC Glucose 160 H 144 H Calculated Osmolality Calcium Phosphorus Magnesium Prealbumin 07/11/16 07/11/16 07/11/16 05:00 05:00 05:00 WBC RBC Hgb Hct MCV MCH MCHC RDW Plt Count MPV Neut % (Auto) Lymph % (Auto) Foster % (Auto) Eos % (Auto) Baso % (Auto) Neut # (Auto) Lymph # (Auto) Foster # (Auto) Eos # (Auto) Baso # (Auto) Immature Gran % Nucleated RBC % Immature Gran # Nucleated RBCs # ABG pH 7.467 H ABG pCO2 32.8 L ABG pO2 126.0 H ABG HCO3 24.8 ABG Total CO2 21.7 L ABG O2 Saturation 98.8 ABG Base Excess 0.4 Sodium 141 Potassium 4.2 Chloride 106 Carbon Dioxide 23 Anion Gap 16.2 H BUN 32 H Creatinine 1.70 H GFR Calculation 45 BUN/Creatinine Ratio 18.00 Glucose 124 H POC Glucose Calculated Osmolality 288.3 Calcium 8.0 L Phosphorus 3.2 Magnesium 2.0 Prealbumin 12.2 L 07/11/16 07/11/16 07/11/16 06:03 07:26 11:50 WBC RBC Hgb Hct MCV MCH MCHC RDW Plt Count MPV Neut % (Auto) Lymph % (Auto) Foster % (Auto) Eos % (Auto) Baso % (Auto) Neut # (Auto) Lymph # (Auto) Foster # (Auto) Eos # (Auto) Baso # (Auto) Immature Gran % Nucleated RBC % Immature Gran # Nucleated RBCs # ABG pH ABG pCO2 ABG pO2 ABG HCO3 ABG Total CO2 ABG O2 Saturation ABG Base Excess Sodium Potassium Chloride Carbon Dioxide Anion Gap BUN Creatinine GFR Calculation BUN/Creatinine Ratio Glucose POC Glucose 121 H 137 H 170 H Calculated Osmolality Calcium Phosphorus Magnesium Prealbumin 07/11/16 15:34 WBC RBC Hgb Hct MCV MCH MCHC RDW Plt Count MPV Neut % (Auto) Lymph % (Auto) Foster % (Auto) Eos % (Auto) Baso % (Auto) Neut # (Auto) Lymph # (Auto) Foster # (Auto) Eos # (Auto) Baso # (Auto) Immature Gran % Nucleated RBC % Immature Gran # Nucleated RBCs # ABG pH ABG pCO2 ABG pO2 ABG HCO3 ABG Total CO2 ABG O2 Saturation ABG Base Excess Sodium Potassium Chloride Carbon Dioxide Anion Gap BUN Creatinine GFR Calculation BUN/Creatinine Ratio Glucose POC Glucose 133 H Calculated Osmolality Calcium Phosphorus Magnesium Prealbumin Quality Measures - VTE Contraindication to Pharmacological VTE Prophylaxis: Active Bleeding Specialty Discharge - Follow Up or Referrals
[2016-07-11] MEDS: PROPOFOL 1,000 MG/100 ML BOTTLE IV SCH (18:15)
--- NOTE | 2016-07-11 18:21 | Neurology Progress Note ---
Neurology - PN : Subjective Interval history: Seems to be doing about the same. No new problems reported. There is some questionable spontaneous movement in the lower extremities reported. Breathing over vent some. Exam (Progress Note) - Constitutional Vitals: Period Temp Pulse Resp BP Sys/Nails Pulse Ox Last 24 Hr 97.8 F-100.0 F 81-128 10-22 93-140/47-61 97-100 Exam: GENERAL: Patient is in no acute distress. NECK: Neck is supple. There is no JVD. No carotid bruits present. No thyroid masses. CVS: Regular rate and rhythm. RESPIRATORY: Lungs are clear to auscultation without any rales or rhonchi. ABDOMEN: Soft and non-tender. Bowel sounds are present. There is no hepatosplenomegaly. EXT: There is no palpable edema. Peripheral pulses are present. Skin: No rashes Central Nervous system: General: Unresponsive on vent Speech: None Comprehension: None Facial expressions: Normal Cranial Nerves: Pupils are 3 mm very sluggishly reactive to light. Doll's head eye movements are absent. Corneals are trace positive Motor: Bulk and Tone is normal. Strength cannot be assessed Sensory: Cannot be assessed Reflexes: Depressed and symmetrical Cerebellar function: Cannot be assessed Toes: Equivocal Gait: Cannot be assessed Results - Labs CBC & BMP: 07/11/16 05:00 07/11/16 05:00 Assessment and Plan (1) Altered mental status Status: Acute Assessment and plan: Cont depacon and keppra at the same dose No more seizures reported. Repeat CAT scan brain reveals no new pathology Continue current supportive treatment I have talked to his son in detail Current Visit: Yes Quality Measures - VTE Contraindication to Pharmacological VTE Prophylaxis: Active Bleeding Specialty Discharge - Follow Up or Referrals
[2016-07-11] MEDS: ATORVASTATIN 40 MG TABLET PO SCH (21:36)
[2016-07-12] MEDS: INSULIN REGULAR 100 UNIT/ML SUBCUT SCH ×6 (00:02→19:56)
[2016-07-12] MEDS: METOPROLOL TARTRATE 5 MG/5 ML VIAL IV SCH ×4 (00:06→18:00)
[2016-07-12] MEDS: VALPROIC ACID INJ 750 MG in SODIUM CHLORIDE 0.9% 100 ML IV SCH ×3 (02:56→18:30)
[2016-07-12 04:38] LABS: ABG HCO3 25.3 MMOL/L (20-26); ABG Oxygen Saturation 99.4 % (95-100); ABG PCO2 33.5 MM HG (35-48); ABG PH 7.468 (7.35-7.45); ABG TCO2 22.1 MMOL/L (23-27)
[2016-07-12 05:00] LABS: Basophils % 0.1 % (0.0-0.8); Eosinophils % 0.1 % (0.00-10.9); Hematocrit 29.1 VOL% (42.0-52.0); Hemoglobin 9.8 GM/DL (14.0-18.0); Immature Granulocytes % 1.1 %; Immature Granulocytes Absolute 0.17 #; Lymphocytes # 1.3 10*3/uL (1.4-4.0); Lymphocytes % 8.2 % (21.2-54.2); Mean Corpuscular HGB Conc 33.7 GM/DL (32-36); Mean Corpuscular Hemoglobin 30 PG (27-34); Mean Corpuscular Volume 88.2 FL (87-102); Mean Platelet Volume 12.6 FL (9.6-12.0); Monocytes # 1.7 10*3/uL (0.11-0.8); Monocytes % 11.1 % (1.7-12.7); Neutrophils # 12.1 10*3/uL (1.4-7.4); Neutrophils % 79.4 % (38.7-73.9); Platelet Count 161 T/CUMM (130-400); Red Cell Distribution Width 15.1 % (9.3-17.3); White Blood Count 15.2 T/CUMM (4-12)
[2016-07-12 05:19] LABS: Calcium 7.5 MG/DL (8.5-10.1); Osmolality,Calculated 295.5 MOS/KG (273-304); Potassium 4.3 MMOL/L (3.5-5.1)
[2016-07-12] MEDS: POTASSIUM CHLORIDE RIDER 20 MEQ in PREMIX 1 EACH IV PRN ×4 (05:40→19:34)
--- NOTE | 2016-07-12 06:15 | Pulmonology Progress Note ---
Pulmonary - PN: Subj Interval history: 71-year-old male had a myocardial infarction and triple-vessel coronary disease with coronary bypass surgery. He had a tear in his aorta subsequent bleeding hypotension and right parietal stroke. He has had some seizures. Presently he is on the ventilator on antiseizure medications and is sedated. Not making any attempts to wean at present. ABGs look good. Exam (Progress Note) - Constitutional Vitals: Period Temp Pulse Resp BP Sys/Nails Pulse Ox Last 24 Hr 97.8 F-99.4 F 81-107 10-20 94-211/45-102 98-100 Exam: Vital signs stable. Pupils react to light. Face symmetrical. Orotracheal tube in place. Neck is supple. Chest is clear equal breath sounds. Heart rate is around 100 no murmurs. Abdomen soft no masses. Extremities no clubbing cyanosis edema. Results - Labs CBC & BMP: 07/12/16 04:30 07/12/16 04:30 Lab Results: I have reviewed the past 24 hour labs - Diagnostic Findings Procedure: Chest x-ray: image reviewed by me (Minimal left basilar atelectasis. ET tube good position. Lungs clear otherwise.) Assessment and Plan (1) Acute respiratory failure Status: Acute Assessment and plan: ABGs look good. Continue mechanical ventilatory support. Await neurologic resolution. Current Visit: Yes (2) S/P CABG x 3 Status: Chronic Assessment and plan: Blood pressure and rhythm are stable. No signs of heart failure. Current Visit: Yes (3) CVA (cerebral vascular accident) Status: Acute Assessment and plan: CT showed a right parietal stroke. Also other areas involved. Neurology following. Prognosis is guarded. Current Visit: Yes (4) Seizure Status: Acute Assessment and plan: No further seizures on seizure medications. Current Visit: Yes Specialty Discharge - Follow Up or Referrals
[2016-07-12] MEDS: MAGNESIUM SULF RIDER 2 GM in PREMIX 1 EACH IV PRN (06:34)
[2016-07-12] MEDS: CHLORHEXIDINE 0.12% ORAL RINSE 60 ML BOTTLE SWISH/SPIT SCH ×2 (08:00→22:48)
--- NOTE | 2016-07-12 08:08 | XRay Report ---
XR chest 1V portable Indication: Shortness of breath Comparison: Chest x-ray 07/11/2016 Technique: Portable AP chest was performed. Findings: Multiple tubes and medical support devices appear stable. Lungs are clear. Postoperative changes from sternotomy as well as heart size appears stable. Impression: 1. No adverse interval change in the chest. No evidence of active cardiopulmonary disease. 07/12/2016 8:05 AM PROCEDURE INTERPRETED AT [facility] DEPARTMENT OF RADIOLOGY Final Report Signed by: Dr. Edmundo Knutson
--- NOTE | 2016-07-12 08:20 | Cardiology Progress Note ---
Assessment and Plan (1) CVA (cerebral vascular accident) Status: Acute Assessment and plan: 07/12: There has been no significant change in the patient's neurologic status. Neurology is following and will continue support Current Visit: Yes (2) Coronary artery disease Status: Acute Assessment and plan: Patient continues stable hemodynamically. There are no new issues currently. Current Visit: Yes Cardiology - PN: Subj Interval history: There is been no significant change in the patient's neurologic status. He continues hemodynamically stable. He does not have seizure activity this morning. Exam (Progress Note) - Constitutional Vitals: Period Temp Pulse Resp BP Sys/Nails Pulse Ox Last 24 Hr 98.0 F-99.4 F 81-107 10-20 94-211/45-102 98-100 Exam: General:no acute distress. Patient sedated on the ventilator HEENT: no new lesions, sclerae are clear, mouth and pharynx benign Neck: supple, trachea midline, no JVD noted Lungs: no rales ronchi or wheeze is noted. Typical postoperative mediastinal sounds noted CV: RRR no murmur rub or gallop is noted. Abd: soft and nontender, BSNA, no masses. Ext: no cyanosis, clubbing or edema Neuro: Patient sedated on the ventilator Result/EKG - Labs CBC & BMP: 07/12/16 04:30 07/12/16 04:30 Labs: Laboratory Results - last 24 hr 07/11/16 07/11/16 07/11/16 11:50 15:34 20:03 WBC RBC Hgb Hct MCV MCH MCHC RDW Plt Count MPV Neut % (Auto) Lymph % (Auto) [place] % (Auto) Eos % (Auto) Baso % (Auto) Neut # (Auto) Lymph # (Auto) [place] # (Auto) Eos # (Auto) Baso # (Auto) Immature Gran % Nucleated RBC % Immature Gran # Nucleated RBCs # ABG pH ABG pCO2 ABG pO2 ABG HCO3 ABG Total CO2 ABG O2 Saturation ABG Base Excess Sodium Potassium Chloride Carbon Dioxide Anion Gap BUN Creatinine GFR Calculation BUN/Creatinine Ratio Glucose POC Glucose 170 H 133 H 177 H Calculated Osmolality Calcium Magnesium 07/11/16 07/12/16 07/12/16 23:59 04:30 04:30 WBC RBC Hgb Hct MCV MCH MCHC RDW Plt Count MPV Neut % (Auto) Lymph % (Auto) [place] % (Auto) Eos % (Auto) Baso % (Auto) Neut # (Auto) Lymph # (Auto) [place] # (Auto) Eos # (Auto) Baso # (Auto) Immature Gran % Nucleated RBC % Immature Gran # Nucleated RBCs # ABG pH 7.468 H ABG pCO2 33.5 L ABG pO2 146.0 H ABG HCO3 25.3 ABG Total CO2 22.1 L ABG O2 Saturation 99.4 ABG Base Excess 1.0 Sodium Potassium Chloride Carbon Dioxide Anion Gap BUN Creatinine GFR Calculation BUN/Creatinine Ratio Glucose POC Glucose 109 H Calculated Osmolality Calcium Magnesium 2.0 07/12/16 07/12/16 07/12/16 04:30 04:30 04:30 WBC 15.2 H RBC 3.30 L Hgb 9.8 L Hct 29.1 L MCV 88.2 MCH 30 MCHC 33.7 RDW 15.1 Plt Count 161 MPV 12.6 H Neut % (Auto) 79.4 H Lymph % (Auto) 8.2 L [place] % (Auto) 11.1 Eos % (Auto) 0.1 Baso % (Auto) 0.1 Neut # (Auto) 12.1 H Lymph # (Auto) 1.3 L [place] # (Auto) 1.7 H Eos # (Auto) 0.0 Baso # (Auto) 0.0 Immature Gran % 1.1 Nucleated RBC % 0.0 Immature Gran # 0.17 Nucleated RBCs # 0.00 ABG pH ABG pCO2 ABG pO2 ABG HCO3 ABG Total CO2 ABG O2 Saturation ABG Base Excess Sodium 139 Potassium 4.3 Chloride 104 Carbon Dioxide 25 Anion Gap 14.3 BUN 51 H D Creatinine 1.70 H GFR Calculation 46 BUN/Creatinine Ratio 30.00 H Glucose 185 H POC Glucose 182 H Calculated Osmolality 295.5 Calcium 7.5 L Magnesium 07/12/16 07:38 WBC RBC Hgb Hct MCV MCH MCHC RDW Plt Count MPV Neut % (Auto) Lymph % (Auto) [place] % (Auto) Eos % (Auto) Baso % (Auto) Neut # (Auto) Lymph # (Auto) [place] # (Auto) Eos # (Auto) Baso # (Auto) Immature Gran % Nucleated RBC % Immature Gran # Nucleated RBCs # ABG pH ABG pCO2 ABG pO2 ABG HCO3 ABG Total CO2 ABG O2 Saturation ABG Base Excess Sodium Potassium Chloride Carbon Dioxide Anion Gap BUN Creatinine GFR Calculation BUN/Creatinine Ratio Glucose POC Glucose 173 H Calculated Osmolality Calcium Magnesium Quality Measures - VTE Contraindication to Pharmacological VTE Prophylaxis: Active Bleeding Specialty Discharge - Follow Up or Referrals
[2016-07-12] MEDS: MORPHINE 2 MG/1 ML SYRINGE IV PRN (09:25)
[2016-07-12] MEDS: FUROSEMIDE 40 MG TABLET PO SCH (09:30)
[2016-07-12] MEDS: ASPIRIN CHEW 81 MG TABLET PO SCH (09:30)
--- NOTE | 2016-07-12 10:24 | XRay Report ---
XR chest 1V portable Indication: Status post chest tube removal. Comparison: Chest x-ray 07/12/2016 Technique: Portable AP chest was performed. Findings: Left-sided chest tube has been removed. Mediastinal drain has been removed. Endotracheal tube, NG tube, and right IJ sheath is present. No pneumothorax or significant change in the lung parenchyma suggested. The heart silhouette is stable in size. Impression: 1. Stable chest status post removal of left-sided chest tube and mediastinal drains. 07/12/2016 10:21 AM PROCEDURE INTERPRETED AT [facility] DEPARTMENT OF RADIOLOGY Final Report Signed by: Dr. Edmundo Knutson
--- NOTE | 2016-07-12 10:24 | Cardiothoracic Progress Note ---
Assessment and Plan (1) Coronary artery disease Status: Chronic Assessment and plan: Postoperative day 4 status post CABG 3. He is hemodynamically stable with minimal chest tube output. He is on minimal vent settings. The patient has significant improvement of his neurological status is localizing in his drawing of 4 extremities and he has spontaneous movements. I removed all the chest tubes today. I removed the pacing wire. Will continue to monitor his neurological status as it slowly improving. Current Visit: Yes (2) Coronary artery disease Status: Acute Current Visit: Yes Exam (Progress Note) - Constitutional Vitals: Period Temp Pulse Resp BP Sys/Nails Pulse Ox Last 24 Hr 98.0 F-99.4 F 81-107 10-20 94-211/45-102 98-100 Result/EKG - Labs CBC & BMP: 07/12/16 04:30 07/12/16 08:22 Labs: Laboratory Results - last 24 hr 07/11/16 07/11/16 07/11/16 11:50 15:34 20:03 WBC RBC Hgb Hct MCV MCH MCHC RDW Plt Count MPV Neut % (Auto) Lymph % (Auto) [place] % (Auto) Eos % (Auto) Baso % (Auto) Neut # (Auto) Lymph # (Auto) [place] # (Auto) Eos # (Auto) Baso # (Auto) Immature Gran % Nucleated RBC % Immature Gran # Nucleated RBCs # ABG pH ABG pCO2 ABG pO2 ABG HCO3 ABG Total CO2 ABG O2 Saturation ABG Base Excess Sodium Potassium Chloride Carbon Dioxide Anion Gap BUN Creatinine GFR Calculation BUN/Creatinine Ratio Glucose POC Glucose 170 H 133 H 177 H Calculated Osmolality Calcium Magnesium 07/11/16 07/12/16 07/12/16 23:59 04:30 04:30 WBC RBC Hgb Hct MCV MCH MCHC RDW Plt Count MPV Neut % (Auto) Lymph % (Auto) [place] % (Auto) Eos % (Auto) Baso % (Auto) Neut # (Auto) Lymph # (Auto) [place] # (Auto) Eos # (Auto) Baso # (Auto) Immature Gran % Nucleated RBC % Immature Gran # Nucleated RBCs # ABG pH 7.468 H ABG pCO2 33.5 L ABG pO2 146.0 H ABG HCO3 25.3 ABG Total CO2 22.1 L ABG O2 Saturation 99.4 ABG Base Excess 1.0 Sodium Potassium Chloride Carbon Dioxide Anion Gap BUN Creatinine GFR Calculation BUN/Creatinine Ratio Glucose POC Glucose 109 H Calculated Osmolality Calcium Magnesium 2.0 07/12/16 07/12/16 07/12/16 04:30 04:30 04:30 WBC 15.2 H RBC 3.30 L Hgb 9.8 L Hct 29.1 L MCV 88.2 MCH 30 MCHC 33.7 RDW 15.1 Plt Count 161 MPV 12.6 H Neut % (Auto) 79.4 H Lymph % (Auto) 8.2 L [place] % (Auto) 11.1 Eos % (Auto) 0.1 Baso % (Auto) 0.1 Neut # (Auto) 12.1 H Lymph # (Auto) 1.3 L [place] # (Auto) 1.7 H Eos # (Auto) 0.0 Baso # (Auto) 0.0 Immature Gran % 1.1 Nucleated RBC % 0.0 Immature Gran # 0.17 Nucleated RBCs # 0.00 ABG pH ABG pCO2 ABG pO2 ABG HCO3 ABG Total CO2 ABG O2 Saturation ABG Base Excess Sodium 139 Potassium 4.3 Chloride 104 Carbon Dioxide 25 Anion Gap 14.3 BUN 51 H D Creatinine 1.70 H GFR Calculation 46 BUN/Creatinine Ratio 30.00 H Glucose 185 H POC Glucose 182 H Calculated Osmolality 295.5 Calcium 7.5 L Magnesium 07/12/16 07/12/16 07:38 08:22 WBC RBC Hgb Hct MCV MCH MCHC RDW Plt Count MPV Neut % (Auto) Lymph % (Auto) [place] % (Auto) Eos % (Auto) Baso % (Auto) Neut # (Auto) Lymph # (Auto) [place] # (Auto) Eos # (Auto) Baso # (Auto) Immature Gran % Nucleated RBC % Immature Gran # Nucleated RBCs # ABG pH ABG pCO2 ABG pO2 ABG HCO3 ABG Total CO2 ABG O2 Saturation ABG Base Excess Sodium Potassium 4.4 Chloride Carbon Dioxide Anion Gap BUN Creatinine GFR Calculation BUN/Creatinine Ratio Glucose POC Glucose 173 H Calculated Osmolality Calcium Magnesium Quality Measures - VTE Contraindication to Pharmacological VTE Prophylaxis: Active Bleeding Specialty Discharge - Follow Up or Referrals
[2016-07-12] MEDS: PROPOFOL 1,000 MG/100 ML BOTTLE IV SCH (15:30)
[2016-07-12] MEDS: ATORVASTATIN 40 MG TABLET PO SCH (22:47)
[2016-07-13] MEDS: INSULIN REGULAR 100 UNIT/ML SUBCUT SCH ×6 (00:12→19:44)
[2016-07-13] MEDS: METOPROLOL TARTRATE 5 MG/5 ML VIAL IV SCH ×4 (00:53→18:10)
[2016-07-13] MEDS: VALPROIC ACID INJ 750 MG in SODIUM CHLORIDE 0.9% 100 ML IV SCH ×3 (03:40→18:39)
[2016-07-13 03:44] LABS: ABG Base Excess 1.7 MMOL/L (-2.5-2.5); ABG HCO3 24.8 MMOL/L (20-26); ABG Oxygen Saturation 98.8 % (95-100); ABG PCO2 33.8 MM HG (35-48); ABG PH 7.483 (7.35-7.45); ABG PO2 165.5 MM HG (80-95); ABG TCO2 25.8 MMOL/L (23-27); Pt O2 Delivery Device Ventilator
[2016-07-13 05:06] LABS: Basophils % 0.1 % (0.0-0.8); Hematocrit 28.1 VOL% (42.0-52.0); Hemoglobin 9.3 GM/DL (14.0-18.0); Immature Granulocytes % 1.2 %; Immature Granulocytes Absolute 0.13 #; Lymphocytes # 0.8 10*3/uL (1.4-4.0); Lymphocytes % 7.3 % (21.2-54.2); Mean Corpuscular HGB Conc 33.1 GM/DL (32-36); Mean Corpuscular Hemoglobin 30 PG (27-34); Mean Corpuscular Volume 89.2 FL (87-102); Mean Platelet Volume 12.3 FL (9.6-12.0); Monocytes # 1.7 10*3/uL (0.11-0.8); Monocytes % 15.4 % (1.7-12.7); Neutrophils # 8.3 10*3/uL (1.4-7.4); Platelet Count 168 T/CUMM (130-400); Red Blood Count 3.15 MC/CUMM (3.8-5.5); Red Cell Distribution Width 14.8 % (9.3-17.3); White Blood Count 10.9 T/CUMM (4-12)
[2016-07-13 05:25] LABS: Magnesium 2.4 MG/DL (1.8-2.4); Osmolality,Calculated 296.5 MOS/KG (273-304); Potassium 4.4 MMOL/L (3.5-5.1)
[2016-07-13] MEDS: POTASSIUM CHLORIDE RIDER 20 MEQ in PREMIX 1 EACH IV PRN (05:48)
[2016-07-13] MEDS: MAGNESIUM SULF RIDER 2 GM in PREMIX 1 EACH IV PRN (06:20)
--- NOTE | 2016-07-13 06:45 | Pulmonology Progress Note ---
Pulmonary - PN: Subj Interval history: 71-year-old male had a myocardial infarction and triple-vessel coronary disease with coronary bypass surgery. He had a tear in his aorta subsequent bleeding hypotension and right parietal stroke. He has had some seizures. Presently he is on the ventilator on antiseizure medications and is sedated. Not making any attempts to wean at present. ABGs look good. 07/13/2016 patient remains unresponsive. ABGs look good. Will reduce settings a little. Chest x-ray is clear. Await neurologic improvement before weaning. Exam (Progress Note) - Constitutional Vitals: Period Temp Pulse Resp BP Sys/Nails Pulse Ox Last 24 Hr 97.8 F-99.8 F 73-98 10-17 85-164/41-78 99-100 Exam: Vital signs stable. Pupils react to light. Patient is unresponsive. Face symmetrical. Orotracheal tube in place. Neck is supple. Chest is clear equal breath sounds. Heart rate is around 100 no murmurs. Abdomen soft no masses. Extremities no clubbing cyanosis edema. Results - Labs CBC & BMP: 07/13/16 04:40 07/13/16 04:41 Lab Results: I have reviewed the past 24 hour labs - Diagnostic Findings Procedure: Chest x-ray: image reviewed by me (Lungs are clear. ET tube in good position.) Assessment and Plan (1) Acute respiratory failure Status: Acute Assessment and plan: ABGs look good. Continue mechanical ventilatory support. Await neurologic resolution. 07/13/2016 respiratory failure following emergency coronary bypass surgery with complications. Decreased neurologic function. Unable to wean at present Current Visit: Yes (2) S/P CABG x 3 Status: Chronic Assessment and plan: Blood pressure and rhythm are stable. No signs of heart failure. Current Visit: Yes (3) CVA (cerebral vascular accident) Status: Acute Assessment and plan: CT showed a right parietal stroke. Also other areas involved. Neurology following. Prognosis is guarded. 07/13/2016 status post stroke. Decreased level of consciousness. Neurology following Current Visit: Yes (4) Seizure Status: Acute Assessment and plan: No further seizures on seizure medications. Current Visit: Yes Specialty Discharge - Follow Up or Referrals
--- NOTE | 2016-07-13 07:42 | Cardiology Progress Note ---
Assessment and Plan (1) CVA (cerebral vascular accident) Status: Acute Assessment and plan: 07/12: There has been no significant change in the patient's neurologic status. Neurology is following and will continue support 07/13: I see no difference comparing this neurologic exam today to the one yesterday. Neurology is evaluating continuing support. Current Visit: Yes (2) Coronary artery disease Status: Acute Assessment and plan: Patient continues stable hemodynamically. There are no new issues currently. Current Visit: Yes Cardiology - PN: Subj Interval history: Patient's neurologic status is unchanged. He is hemostatically stable. Exam (Progress Note) - Constitutional Vitals: Period Temp Pulse Resp BP Sys/Nails Pulse Ox Last 24 Hr 97.8 F-99.8 F 73-98 10-17 85-164/41-78 99-100 Exam: General:no acute distress. Patient withdraws to deep pain. HEENT: no new lesions, sclerae are clear, mouth and pharynx benign Neck: supple, trachea midline, no JVD noted Lungs: no rales ronchi or wheeze is noted. Typical postoperative mediastinal sounds noted CV: RRR no murmur rub or gallop is noted. Abd: soft and nontender, BSNA, no masses. Ext: no cyanosis, clubbing or edema Neuro: Patient sedated on the ventilator Result/EKG - Labs CBC & BMP: 07/13/16 04:40 07/13/16 04:41 Labs: Laboratory Results - last 24 hr 07/12/16 07/12/16 07/12/16 07:38 08:22 11:21 WBC RBC Hgb Hct MCV MCH MCHC RDW Plt Count MPV Neut % (Auto) Lymph % (Auto) [place] % (Auto) Eos % (Auto) Baso % (Auto) Neut # (Auto) Lymph # (Auto) [place] # (Auto) Eos # (Auto) Baso # (Auto) Immature Gran % Nucleated RBC % Immature Gran # Nucleated RBCs # ABG pH ABG pCO2 ABG pO2 ABG HCO3 ABG Total CO2 ABG O2 Saturation ABG Base Excess FiO2 Sodium Potassium 4.4 Chloride Carbon Dioxide Anion Gap BUN Creatinine GFR Calculation BUN/Creatinine Ratio Glucose POC Glucose 173 H 172 H Calculated Osmolality Calcium Magnesium 07/12/16 07/12/16 07/12/16 14:00 16:04 18:30 WBC RBC Hgb Hct MCV MCH MCHC RDW Plt Count MPV Neut % (Auto) Lymph % (Auto) [place] % (Auto) Eos % (Auto) Baso % (Auto) Neut # (Auto) Lymph # (Auto) [place] # (Auto) Eos # (Auto) Baso # (Auto) Immature Gran % Nucleated RBC % Immature Gran # Nucleated RBCs # ABG pH ABG pCO2 ABG pO2 ABG HCO3 ABG Total CO2 ABG O2 Saturation ABG Base Excess FiO2 Sodium Potassium 4.2 4.4 Chloride Carbon Dioxide Anion Gap BUN Creatinine GFR Calculation BUN/Creatinine Ratio Glucose POC Glucose 135 H Calculated Osmolality Calcium Magnesium 07/12/16 07/12/16 07/13/16 19:55 23:38 03:15 WBC RBC Hgb Hct MCV MCH MCHC RDW Plt Count MPV Neut % (Auto) Lymph % (Auto) [place] % (Auto) Eos % (Auto) Baso % (Auto) Neut # (Auto) Lymph # (Auto) [place] # (Auto) Eos # (Auto) Baso # (Auto) Immature Gran % Nucleated RBC % Immature Gran # Nucleated RBCs # ABG pH 7.483 H ABG pCO2 33.8 L ABG pO2 165.5 H ABG HCO3 24.8 ABG Total CO2 25.8 ABG O2 Saturation 98.8 ABG Base Excess 1.7 FiO2 50.00 Sodium Potassium Chloride Carbon Dioxide Anion Gap BUN Creatinine GFR Calculation BUN/Creatinine Ratio Glucose POC Glucose 140 H 193 H Calculated Osmolality Calcium Magnesium 07/13/16 07/13/16 07/13/16 04:33 04:40 04:41 WBC 10.9 RBC 3.15 L Hgb 9.3 L Hct 28.1 L MCV 89.2 MCH 30 MCHC 33.1 RDW 14.8 Plt Count 168 MPV 12.3 H Neut % (Auto) 76.0 H Lymph % (Auto) 7.3 L [place] % (Auto) 15.4 H Eos % (Auto) 0.0 Baso % (Auto) 0.1 Neut # (Auto) 8.3 H Lymph # (Auto) 0.8 L [place] # (Auto) 1.7 H Eos # (Auto) 0.0 Baso # (Auto) 0.0 Immature Gran % 1.2 Nucleated RBC % 0.0 Immature Gran # 0.13 Nucleated RBCs # 0.00 ABG pH ABG pCO2 ABG pO2 ABG HCO3 ABG Total CO2 ABG O2 Saturation ABG Base Excess FiO2 Sodium 139 Potassium 4.4 Chloride 103 Carbon Dioxide 28 Anion Gap 12.4 BUN 54 H Creatinine 1.70 H GFR Calculation 46 BUN/Creatinine Ratio 31.00 H Glucose 186 H POC Glucose 210 H Calculated Osmolality 296.5 Calcium 8.0 L Magnesium 2.4 07/13/16 07:33 WBC RBC Hgb Hct MCV MCH MCHC RDW Plt Count MPV Neut % (Auto) Lymph % (Auto) [place] % (Auto) Eos % (Auto) Baso % (Auto) Neut # (Auto) Lymph # (Auto) [place] # (Auto) Eos # (Auto) Baso # (Auto) Immature Gran % Nucleated RBC % Immature Gran # Nucleated RBCs # ABG pH ABG pCO2 ABG pO2 ABG HCO3 ABG Total CO2 ABG O2 Saturation ABG Base Excess FiO2 Sodium Potassium Chloride Carbon Dioxide Anion Gap BUN Creatinine GFR Calculation BUN/Creatinine Ratio Glucose POC Glucose 187 H Calculated Osmolality Calcium Magnesium Quality Measures - VTE Contraindication to Pharmacological VTE Prophylaxis: Active Bleeding Specialty Discharge - Follow Up or Referrals
[2016-07-13] MEDS: MINERAL OIL/PETROLATUM OPH OINT 3.5 GM TUBE BOTH EYES PRN (08:04)
[2016-07-13] MEDS: CHLORHEXIDINE 0.12% ORAL RINSE 60 ML BOTTLE SWISH/SPIT SCH ×2 (08:06→21:31)
[2016-07-13] MEDS: FUROSEMIDE 40 MG TABLET PO SCH (08:28)
[2016-07-13] MEDS: ASPIRIN CHEW 81 MG TABLET PO SCH (08:28)
--- NOTE | 2016-07-13 08:54 | XRay Report ---
XR chest 1V portable Indication: Shortness of breath Comparison: Chest x-ray 07/12/2016 Technique: Portable AP chest was performed. Findings: Multiple tubes and medical support devices appear stable. The heart size appears within normal limits. Sternal wires are stable. Pulmonary vasculature demonstrates no specific abnormality. Hilar structures demonstrate fairly symmetric appearance. The lungs appear clear. Bones and soft tissues demonstrate no evidence of acute pathology. Impression: 1. No evidence of acute pathology. 07/13/2016 8:51 AM PROCEDURE INTERPRETED AT [facility] DEPARTMENT OF RADIOLOGY Final Report Signed by: Dr. Edmundo Knutson
--- NOTE | 2016-07-13 09:31 | Cardiothoracic Progress Note ---
Assessment and Plan (1) Coronary artery disease Status: Chronic Assessment and plan: Postoperative day 5 status post CABG 3. He is hemodynamically stable without any problems. Will continue to monitor his neurological status. He might require a prolonged period of time to assess the possibility of neurologic recovery however prognosis still guarded Current Visit: Yes (2) Coronary artery disease Status: Acute Current Visit: Yes Exam (Progress Note) - Constitutional Vitals: Period Temp Pulse Resp BP Sys/Nails Pulse Ox Last 24 Hr 97.8 F-100.6 F 73-98 10-19 86-164/50-78 99-100 Result/EKG - Labs CBC & BMP: 07/13/16 04:40 07/13/16 08:40 Labs: Laboratory Results - last 24 hr 07/12/16 07/12/16 07/12/16 11:21 14:00 16:04 WBC RBC Hgb Hct MCV MCH MCHC RDW Plt Count MPV Neut % (Auto) Lymph % (Auto) [place] % (Auto) Eos % (Auto) Baso % (Auto) Neut # (Auto) Lymph # (Auto) [place] # (Auto) Eos # (Auto) Baso # (Auto) Immature Gran % Nucleated RBC % Immature Gran # Nucleated RBCs # ABG pH ABG pCO2 ABG pO2 ABG HCO3 ABG Total CO2 ABG O2 Saturation ABG Base Excess FiO2 Sodium Potassium 4.2 Chloride Carbon Dioxide Anion Gap BUN Creatinine GFR Calculation BUN/Creatinine Ratio Glucose POC Glucose 172 H 135 H Calculated Osmolality Calcium Magnesium 07/12/16 07/12/16 07/12/16 18:30 19:55 23:38 WBC RBC Hgb Hct MCV MCH MCHC RDW Plt Count MPV Neut % (Auto) Lymph % (Auto) [place] % (Auto) Eos % (Auto) Baso % (Auto) Neut # (Auto) Lymph # (Auto) [place] # (Auto) Eos # (Auto) Baso # (Auto) Immature Gran % Nucleated RBC % Immature Gran # Nucleated RBCs # ABG pH ABG pCO2 ABG pO2 ABG HCO3 ABG Total CO2 ABG O2 Saturation ABG Base Excess FiO2 Sodium Potassium 4.4 Chloride Carbon Dioxide Anion Gap BUN Creatinine GFR Calculation BUN/Creatinine Ratio Glucose POC Glucose 140 H 193 H Calculated Osmolality Calcium Magnesium 07/13/16 07/13/16 07/13/16 03:15 04:33 04:40 WBC 10.9 RBC 3.15 L Hgb 9.3 L Hct 28.1 L MCV 89.2 MCH 30 MCHC 33.1 RDW 14.8 Plt Count 168 MPV 12.3 H Neut % (Auto) 76.0 H Lymph % (Auto) 7.3 L [place] % (Auto) 15.4 H Eos % (Auto) 0.0 Baso % (Auto) 0.1 Neut # (Auto) 8.3 H Lymph # (Auto) 0.8 L [place] # (Auto) 1.7 H Eos # (Auto) 0.0 Baso # (Auto) 0.0 Immature Gran % 1.2 Nucleated RBC % 0.0 Immature Gran # 0.13 Nucleated RBCs # 0.00 ABG pH 7.483 H ABG pCO2 33.8 L ABG pO2 165.5 H ABG HCO3 24.8 ABG Total CO2 25.8 ABG O2 Saturation 98.8 ABG Base Excess 1.7 FiO2 50.00 Sodium Potassium Chloride Carbon Dioxide Anion Gap BUN Creatinine GFR Calculation BUN/Creatinine Ratio Glucose POC Glucose 210 H Calculated Osmolality Calcium Magnesium 07/13/16 07/13/16 07/13/16 04:41 07:33 08:40 WBC RBC Hgb Hct MCV MCH MCHC RDW Plt Count MPV Neut % (Auto) Lymph % (Auto) [place] % (Auto) Eos % (Auto) Baso % (Auto) Neut # (Auto) Lymph # (Auto) [place] # (Auto) Eos # (Auto) Baso # (Auto) Immature Gran % Nucleated RBC % Immature Gran # Nucleated RBCs # ABG pH ABG pCO2 ABG pO2 ABG HCO3 ABG Total CO2 ABG O2 Saturation ABG Base Excess FiO2 Sodium 139 Potassium 4.4 4.6 Chloride 103 Carbon Dioxide 28 Anion Gap 12.4 BUN 54 H Creatinine 1.70 H GFR Calculation 46 BUN/Creatinine Ratio 31.00 H Glucose 186 H POC Glucose 187 H Calculated Osmolality 296.5 Calcium 8.0 L Magnesium 2.4 Quality Measures - VTE Contraindication to Pharmacological VTE Prophylaxis: Active Bleeding Specialty Discharge - Follow Up or Referrals
[2016-07-13] MEDS: PROPOFOL 1,000 MG/100 ML BOTTLE IV SCH (15:56)
[2016-07-13] MEDS: ATORVASTATIN 40 MG TABLET PO SCH (21:25)
[2016-07-13] MEDS: MORPHINE 2 MG/1 ML SYRINGE IV PRN (23:44)
[2016-07-14] MEDS: METOPROLOL TARTRATE 5 MG/5 ML VIAL IV SCH ×2 (00:48→06:34)
[2016-07-14] MEDS: VALPROIC ACID INJ 750 MG in SODIUM CHLORIDE 0.9% 100 ML IV SCH ×3 (03:42→18:40)
[2016-07-14 03:57] LABS: ABG Base Excess 4.9 MMOL/L (-2.5-2.5); ABG HCO3 28.9 MMOL/L (20-26); ABG Oxygen Saturation 98.1 % (95-100); ABG PCO2 40.1 MM HG (35-48); ABG PH 7.475 (7.35-7.45); ABG TCO2 30.1 MMOL/L (23-27)
[2016-07-14] MEDS: INSULIN REGULAR 100 UNIT/ML SUBCUT SCH ×6 (04:06→21:49)
[2016-07-14 05:50] LABS: Basophils % 0.2 % (0.0-0.8); Eosinophils # 0.1 10*3/uL (0.0-0.87); Eosinophils % 0.6 % (0.00-10.9); Hematocrit 28.4 VOL% (42.0-52.0); Hemoglobin 9.2 GM/DL (14.0-18.0); Immature Granulocytes % 1.5 %; Immature Granulocytes Absolute 0.17 #; Lymphocytes # 1.1 10*3/uL (1.4-4.0); Mean Corpuscular HGB Conc 32.4 GM/DL (32-36); Mean Corpuscular Hemoglobin 29 PG (27-34); Mean Corpuscular Volume 89.6 FL (87-102); Mean Platelet Volume 11.7 FL (9.6-12.0); Monocytes # 1.9 10*3/uL (0.11-0.8); Monocytes % 16.7 % (1.7-12.7); Neutrophils # 8.4 10*3/uL (1.4-7.4); Platelet Count 176 T/CUMM (130-400); Red Blood Count 3.17 MC/CUMM (3.8-5.5); Red Cell Distribution Width 14.5 % (9.3-17.3); White Blood Count 11.6 T/CUMM (4-12)
[2016-07-14 06:26] LABS: Calcium 8.4 MG/DL (8.5-10.1); Magnesium 2.4 MG/DL (1.8-2.4); Osmolality,Calculated 292.4 MOS/KG (273-304); Potassium 4.1 MMOL/L (3.5-5.1)
[2016-07-14 06:37] LABS: Phosphorous 3.3 MG/DL (2.5-4.9); Prealbumin 16.4 MG/DL (20-40)
[2016-07-14 06:44] LABS: Band Neutrophils 2 % (0-10); Lymphocytes 9 % (20-55); Segmented Neutrophils 79 % (50-85); Total Cells Counted 100
[2016-07-14 06:45] LABS: Hypochromasia 1+; Platelet Estimate Adequate; Polychromasia Slight
--- NOTE | 2016-07-14 07:02 | XRay Report ---
Referring Physician: Basil Hale MD Exam: XR chest 1V portable Date: July 14, 2016 at 2:52 AM Reason: Shortness of breath Comparison: Chest one view portable July 13, 2016 Findings: An endotracheal tube and feeding tube are again in place. The cardiac silhouette is upper normal in size, and the patient is status post sternotomy. Mild bibasilar opacities are present and likely represent atelectasis. No pneumothorax is identified, but there may be minimal left pleural fluid. The osseous structures appear stable. Impression: There is slight increased atelectasis at the lung bases and possible minimal left pleural fluid. PROCEDURE INTERPRETED AT [facility] DEPARTMENT OF RADIOLOGY Final Report Signed by: Dr. Mitchell Oliver
--- NOTE | 2016-07-14 07:35 | Cardiology Progress Note ---
Assessment and Plan (1) Coronary artery disease Status: Acute Assessment and plan: 71-year-old male, CAD, status post recent CABG, complicated by severe periprocedural encephalopathy, now unresponsive. Had seizures, susp. CVA. HTN, HLP, former smoker. -CAD. Continue aspirin, statin. -Switch metoprolol to enteral, 25 mg twice daily. -Pericardial rub. Likely pericarditis. BP/HR stable, hemodynamically significant effusion unlikely. Check EKG. Keep on telemetry, if he develops atrial fibrillation, anticoagulation will need to be considered. Current Visit: Yes (2) S/P CABG x 3 Status: Chronic Current Visit: Yes (3) Hypertension Status: Chronic Current Visit: Yes (4) Dyslipidemia Status: Chronic Current Visit: Yes (5) CVA (cerebral vascular accident) Status: Acute Current Visit: Yes (6) Seizure Status: Acute Current Visit: Yes (7) Renal insufficiency Status: Acute Current Visit: Yes (8) Former smoker Status: Acute Current Visit: Yes (9) On mechanically assisted ventilation Status: Acute Current Visit: Yes Cardiology - PN: Subj Interval history: He is unresponsive on the ventilator, off sedation. BP, HR well controlled. No significantg arrhythmia. Prominent pericardial rub. Chest tubes were d/c-d. Exam (Progress Note) - Constitutional Vitals: Period Temp Pulse Resp BP Sys/Nails Pulse Ox Last 24 Hr 98.0 F-100.6 F 75-97 10-19 88-141/50-79 98-100 General appearance: normal weight, no acute distress - Head Head exam: Present: normal inspection, normocephalic - ENT ENT exam: Present: normal external ear exam - Neck Neck exam: Present: normal inspection - Respiratory Respiratory exam: Present: clear to auscultation bilaterally. Absent: accessory muscle use - Cardiovascular Cardiovascular exam: Present: regular rate and rhythm, rubs - GI/Abdominal GI/Abdominal exam: Present: hypoactive bowel sounds. Absent: distended - Extremities Exam Extremities exam: Present: normal inspection, normal capillary refill, other ( dressings dry). Absent: edema - Neurological Exam Neurological exam: Present: other (unresponsive) - Skin Skin exam: Present: normal color, warm. Absent: cyanosis Result/EKG - Labs CBC & BMP: 07/14/16 05:35 07/14/16 05:35 Lab Results: I have reviewed the past 24 hour labs Labs: Laboratory Results - last 24 hr 07/13/16 07/13/16 07/13/16 07:33 08:40 11:44 WBC RBC Hgb Hct MCV MCH MCHC RDW Plt Count MPV Neut % (Auto) Lymph % (Auto) Ward % (Auto) Eos % (Auto) Baso % (Auto) Neut # (Auto) Lymph # (Auto) Ward # (Auto) Eos # (Auto) Baso # (Auto) Total Counted Immature Gran % Nucleated RBC % Immature Gran # Segmented Neutrophils Band Neutrophils Lymphocytes Monocytes Nucleated RBCs # Platelet Estimate Polychromasia Hypochromasia ABG pH ABG pCO2 ABG pO2 ABG HCO3 ABG Total CO2 ABG O2 Saturation ABG Base Excess Sodium Potassium 4.6 Chloride Carbon Dioxide Anion Gap BUN Creatinine GFR Calculation BUN/Creatinine Ratio Glucose POC Glucose 187 H 131 H Calculated Osmolality Calcium Phosphorus Magnesium Prealbumin 07/13/16 07/13/16 07/13/16 15:35 19:38 23:52 WBC RBC Hgb Hct MCV MCH MCHC RDW Plt Count MPV Neut % (Auto) Lymph % (Auto) Ward % (Auto) Eos % (Auto) Baso % (Auto) Neut # (Auto) Lymph # (Auto) Ward # (Auto) Eos # (Auto) Baso # (Auto) Total Counted Immature Gran % Nucleated RBC % Immature Gran # Segmented Neutrophils Band Neutrophils Lymphocytes Monocytes Nucleated RBCs # Platelet Estimate Polychromasia Hypochromasia ABG pH ABG pCO2 ABG pO2 ABG HCO3 ABG Total CO2 ABG O2 Saturation ABG Base Excess Sodium Potassium Chloride Carbon Dioxide Anion Gap BUN Creatinine GFR Calculation BUN/Creatinine Ratio Glucose POC Glucose 192 H 209 H 154 H Calculated Osmolality Calcium Phosphorus Magnesium Prealbumin 07/14/16 07/14/16 07/14/16 03:11 04:00 05:35 WBC RBC Hgb Hct MCV MCH MCHC RDW Plt Count MPV Neut % (Auto) Lymph % (Auto) Ward % (Auto) Eos % (Auto) Baso % (Auto) Neut # (Auto) Lymph # (Auto) Ward # (Auto) Eos # (Auto) Baso # (Auto) Total Counted Immature Gran % Nucleated RBC % Immature Gran # Segmented Neutrophils Band Neutrophils Lymphocytes Monocytes Nucleated RBCs # Platelet Estimate Polychromasia Hypochromasia ABG pH 7.475 H ABG pCO2 40.1 ABG pO2 121.0 H ABG HCO3 28.9 H ABG Total CO2 30.1 H ABG O2 Saturation 98.1 ABG Base Excess 4.9 H Sodium Potassium Chloride Carbon Dioxide Anion Gap BUN Creatinine GFR Calculation BUN/Creatinine Ratio Glucose POC Glucose 152 H Calculated Osmolality Calcium Phosphorus 3.3 Magnesium Prealbumin 16.4 L 07/14/16 07/14/16 05:35 05:35 WBC 11.6 RBC 3.17 L Hgb 9.2 L Hct 28.4 L MCV 89.6 MCH 29 MCHC 32.4 RDW 14.5 Plt Count 176 MPV 11.7 Neut % (Auto) 72.0 Lymph % (Auto) 9.0 L Ward % (Auto) 16.7 H Eos % (Auto) 0.6 Baso % (Auto) 0.2 Neut # (Auto) 8.4 H Lymph # (Auto) 1.1 L Ward # (Auto) 1.9 H Eos # (Auto) 0.1 Baso # (Auto) 0.0 Total Counted 100 Immature Gran % 1.5 Nucleated RBC % 0.0 Immature Gran # 0.17 Segmented Neutrophils 79 Band Neutrophils 2 Lymphocytes 9 L Monocytes 10 Nucleated RBCs # 0.00 Platelet Estimate Adequate Polychromasia Slight Hypochromasia 1+ ABG pH ABG pCO2 ABG pO2 ABG HCO3 ABG Total CO2 ABG O2 Saturation ABG Base Excess Sodium 140 Potassium 4.1 Chloride 103 Carbon Dioxide 28 Anion Gap 13.1 BUN 46 H Creatinine 1.60 H GFR Calculation 49 BUN/Creatinine Ratio 28.00 H Glucose 137 H POC Glucose Calculated Osmolality 292.4 Calcium 8.4 L Phosphorus Magnesium 2.4 Prealbumin - EKG EKG results: interpreted by va Quality Measures - VTE Contraindication to Pharmacological VTE Prophylaxis: Active Bleeding Specialty Discharge - Follow Up or Referrals
--- NOTE | 2016-07-14 08:08 | EKG Report ---
Stationary ECG Study [facility] Test Date: 07/14/2016 8:05:43 AM Pat Name: CHRIS ESTES Department: Room: 107 Gender: M [employer] Registrar: HUDSON : 1945 Requested by: Rick Stevens Order Number: [id number] Reading MD: DARCIE STEPHENS Intervals [place] Rate: 85 P: 42 VA: 153 QRS: 10 QRSD: 84 T: 73 QT: 345 QTc: 387 Interpretive Statements SINUS RHYTHM Electronically Signed On 07-14-16 11:47:39 CDT by DARCIE STEPHENS [email or web address]
--- NOTE | 2016-07-14 08:22 | Pulmonology Progress Note ---
Pulmonary - PN: Subj Interval history: The patient is a 71-year-old has very severe coronary artery disease and had triple-vessel CABG earlier in the week. He apparently had a tear in his aorta and had bleeding and it was a difficult case. Postop he has had seizures and looks like he has a right parietal CVA. CT on Thursday confirmed the areas of infarction. The patient has been stable on the ventilator and his oxygenation has been good. His chest x-ray still clear. He still is not responding very well however. For now he will continue with ventilatory support. Exam (Progress Note) - Constitutional Vitals: Period Temp Pulse Resp BP Sys/Nails Pulse Ox Last 24 Hr 98.0 F-98.8 F 75-97 10-19 88-141/50-79 98-100 Exam: General appearance: normal weight, other (Patient is still poorly responsive at this point.) - Head Head exam: Present: normal inspection, normocephalic - Eye Eye exam: Present: He has little eye movement. Absent: scleral icterus Pupils: Present: JENNIFER - ENT ENT exam: Present: other (ET tube is in good position) - Neck Neck exam: Present: normal inspection. Absent: lymphadenopathy, thyromegaly - Respiratory Respiratory exam: Present: clear to auscultation bilaterally. He has good breath sounds bilaterally. Wheezing or rales present. - Cardiovascular Cardiovascular exam: Present: regular rate and rhythm. Sternal wound is stable. Absent: gallop, systolic murmur - GI/Abdominal GI/Abdominal exam: Present: soft. Absent: distended, organomegaly, tenderness - Extremities Exam Extremities exam: Present: edema (Has trace edema of the legs). Absent: calf tenderness - Neurological Exam Neurological exam: Present: altered (Patient is sedated on the ventilator. He has little movement so far. He is getting seizure medicines.) - Skin Skin exam: Present: warm, dry Results - Labs CBC & BMP: 07/14/16 05:35 07/14/16 05:35 Labs: PO2 is 121 with a PCO2 of 40 and a pH of 7.47 - Diagnostic Findings Procedure: Chest x-ray: image reviewed by me, report reviewed by me (Chest x- ray still clear.) Assessment and Plan (1) Renal insufficiency Status: Acute Assessment and plan: The patient's creatinine is 1.6 and urine output has improved. Current Visit: Yes (2) Former smoker Status: Acute Assessment and plan: Patient quit smoking several years ago but may have a component of COPD. He is stable on the ventilator at present. His chest x-ray is clear Current Visit: Yes (3) Coronary artery disease Status: Chronic Assessment and plan: Patient has significant coronary artery disease. He is now status post CABG Current Visit: Yes (4) S/P CABG x 3 Status: Chronic Assessment and plan: The patient is status post CABG 3 and apparently required an aortic repair. He is hemodynamically stable at present. His blood pressure and heart rate have been stable. Current Visit: Yes (5) Hypertension Status: Chronic Assessment and plan: The patient blood pressure stable at present. Current Visit: Yes (6) CVA (cerebral vascular accident) Status: Acute Assessment and plan: Patient has been having seizures and is getting medications. He has multiple small areas of infarction. He still is not waking up very well. Current Visit: Yes (7) Seizure Status: Acute Assessment and plan: He is getting seizure medicines and is followed by neurology. He has had no recent seizures. Current Visit: Yes (8) On mechanically assisted ventilation Status: Acute Assessment and plan: The patient has very good gases on the ventilator and his chest x-ray is clear. Overall he is stable on the ventilator. Current Visit: Yes Specialty Discharge - Follow Up or Referrals
[2016-07-14] MEDS: METOPROLOL TARTRATE 25 MG TABLET PO SCH ×2 (08:26→21:37)
[2016-07-14] MEDS: ASPIRIN CHEW 81 MG TABLET PO SCH (08:26)
[2016-07-14] MEDS: CHLORHEXIDINE 0.12% ORAL RINSE 60 ML BOTTLE SWISH/SPIT SCH ×2 (08:26→21:37)
[2016-07-14] MEDS: FUROSEMIDE 40 MG TABLET PO SCH (08:26)
[2016-07-14] MEDS: POTASSIUM CHLORIDE RIDER 10 MEQ in PREMIX 1 EACH IV PRN ×2 (08:26→09:26)
[2016-07-14] MEDS: MAGNESIUM SULF RIDER 2 GM in PREMIX 1 EACH IV PRN (08:27)
--- NOTE | 2016-07-14 10:36 | Cardiothoracic Progress Note ---
Assessment and Plan (1) Coronary artery disease Status: Chronic Assessment and plan: Postoperative day 6 status post CABG 3. He is hemodynamically stable without any problems. Will continue to monitor his neurological status. Will consult case management to assess for possible transfer for LTAC for prolonged care. Current Visit: Yes (2) Coronary artery disease Status: Acute Current Visit: Yes Exam (Progress Note) - Constitutional Vitals: Period Temp Pulse Resp BP Sys/Nails Pulse Ox Last 24 Hr 97.8 F-98.8 F 69-97 10-20 87-141/46-79 98-100 Result/EKG - Labs CBC & BMP: 07/14/16 05:35 07/14/16 05:35 Labs: Laboratory Results - last 24 hr 07/13/16 07/13/16 07/13/16 11:44 15:35 19:38 WBC RBC Hgb Hct MCV MCH MCHC RDW Plt Count MPV Neut % (Auto) Lymph % (Auto) Benzie % (Auto) Eos % (Auto) Baso % (Auto) Neut # (Auto) Lymph # (Auto) Benzie # (Auto) Eos # (Auto) Baso # (Auto) Total Counted Immature Gran % Nucleated RBC % Immature Gran # Segmented Neutrophils Band Neutrophils Lymphocytes Monocytes Nucleated RBCs # Platelet Estimate Polychromasia Hypochromasia ABG pH ABG pCO2 ABG pO2 ABG HCO3 ABG Total CO2 ABG O2 Saturation ABG Base Excess Sodium Potassium Chloride Carbon Dioxide Anion Gap BUN Creatinine GFR Calculation BUN/Creatinine Ratio Glucose POC Glucose 131 H 192 H 209 H Calculated Osmolality Calcium Phosphorus Magnesium Prealbumin 07/13/16 07/14/16 07/14/16 23:52 03:11 04:00 WBC RBC Hgb Hct MCV MCH MCHC RDW Plt Count MPV Neut % (Auto) Lymph % (Auto) Benzie % (Auto) Eos % (Auto) Baso % (Auto) Neut # (Auto) Lymph # (Auto) Benzie # (Auto) Eos # (Auto) Baso # (Auto) Total Counted Immature Gran % Nucleated RBC % Immature Gran # Segmented Neutrophils Band Neutrophils Lymphocytes Monocytes Nucleated RBCs # Platelet Estimate Polychromasia Hypochromasia ABG pH 7.475 H ABG pCO2 40.1 ABG pO2 121.0 H ABG HCO3 28.9 H ABG Total CO2 30.1 H ABG O2 Saturation 98.1 ABG Base Excess 4.9 H Sodium Potassium Chloride Carbon Dioxide Anion Gap BUN Creatinine GFR Calculation BUN/Creatinine Ratio Glucose POC Glucose 154 H 152 H Calculated Osmolality Calcium Phosphorus Magnesium Prealbumin 07/14/16 07/14/16 07/14/16 05:35 05:35 05:35 WBC 11.6 RBC 3.17 L Hgb 9.2 L Hct 28.4 L MCV 89.6 MCH 29 MCHC 32.4 RDW 14.5 Plt Count 176 MPV 11.7 Neut % (Auto) 72.0 Lymph % (Auto) 9.0 L Benzie % (Auto) 16.7 H Eos % (Auto) 0.6 Baso % (Auto) 0.2 Neut # (Auto) 8.4 H Lymph # (Auto) 1.1 L Benzie # (Auto) 1.9 H Eos # (Auto) 0.1 Baso # (Auto) 0.0 Total Counted 100 Immature Gran % 1.5 Nucleated RBC % 0.0 Immature Gran # 0.17 Segmented Neutrophils 79 Band Neutrophils 2 Lymphocytes 9 L Monocytes 10 Nucleated RBCs # 0.00 Platelet Estimate Adequate Polychromasia Slight Hypochromasia 1+ ABG pH ABG pCO2 ABG pO2 ABG HCO3 ABG Total CO2 ABG O2 Saturation ABG Base Excess Sodium 140 Potassium 4.1 Chloride 103 Carbon Dioxide 28 Anion Gap 13.1 BUN 46 H Creatinine 1.60 H GFR Calculation 49 BUN/Creatinine Ratio 28.00 H Glucose 137 H POC Glucose Calculated Osmolality 292.4 Calcium 8.4 L Phosphorus 3.3 Magnesium 2.4 Prealbumin 16.4 L 07/14/16 07:48 WBC RBC Hgb Hct MCV MCH MCHC RDW Plt Count MPV Neut % (Auto) Lymph % (Auto) Benzie % (Auto) Eos % (Auto) Baso % (Auto) Neut # (Auto) Lymph # (Auto) Benzie # (Auto) Eos # (Auto) Baso # (Auto) Total Counted Immature Gran % Nucleated RBC % Immature Gran # Segmented Neutrophils Band Neutrophils Lymphocytes Monocytes Nucleated RBCs # Platelet Estimate Polychromasia Hypochromasia ABG pH ABG pCO2 ABG pO2 ABG HCO3 ABG Total CO2 ABG O2 Saturation ABG Base Excess Sodium Potassium Chloride Carbon Dioxide Anion Gap BUN Creatinine GFR Calculation BUN/Creatinine Ratio Glucose POC Glucose 166 H Calculated Osmolality Calcium Phosphorus Magnesium Prealbumin Quality Measures - VTE Contraindication to Pharmacological VTE Prophylaxis: Active Bleeding Specialty Discharge - Follow Up or Referrals
--- NOTE | 2016-07-14 14:05 | Neurology Progress Note ---
Neurology - PN : Subjective Interval history: Patient seems to be doing okay neurologically. No more seizures reported. He is a still getting CPAP trials. He will be moved to LTAC. Exam (Progress Note) - Constitutional Vitals: Period Temp Pulse Resp BP Sys/Nails Pulse Ox Last 24 Hr 97.7 F-98.8 F 69-97 10-20 87-147/46-79 97-100 Exam: GENERAL: Patient is in no acute distress. NECK: Neck is supple. There is no JVD. No carotid bruits present. No thyroid masses. CVS: Regular rate and rhythm. RESPIRATORY: Lungs are clear to auscultation without any rales or rhonchi. ABDOMEN: Soft and non-tender. Bowel sounds are present. There is no hepatosplenomegaly. EXT: There is no palpable edema. Peripheral pulses are present. Skin: No rashes Central Nervous system: General: Unresponsive on vent Speech: None Comprehension: None Facial expressions: Normal Cranial Nerves: Pupils are 3 mm very sluggishly reactive to light. Doll's head eye movements are absent. Corneals are trace positive Motor: Bulk and Tone is normal. Strength cannot be assessed Sensory: Cannot be assessed Reflexes: Depressed and symmetrical Cerebellar function: Cannot be assessed Toes: Equivocal Gait: Cannot be assessed Results - Labs CBC & BMP: 07/14/16 05:35 07/14/16 05:35 Assessment and Plan (1) Altered mental status Status: Acute Assessment and plan: Cont depacon and keppra at the same dose No more seizures reported. Continue current supportive treatment Check Depakote and Keppra level. Okay to go to LTAC from neuro standpoint Current Visit: Yes Quality Measures - VTE Contraindication to Pharmacological VTE Prophylaxis: Active Bleeding Specialty Discharge - Follow Up or Referrals
[2016-07-14] MEDS: PROPOFOL 1,000 MG/100 ML BOTTLE IV SCH (14:59)
[2016-07-14] MEDS: ATORVASTATIN 40 MG TABLET PO SCH (21:37)
[2016-07-15] MEDS: INSULIN REGULAR 100 UNIT/ML SUBCUT SCH ×4 (00:50→11:52)
[2016-07-15] MEDS: VALPROIC ACID INJ 750 MG in SODIUM CHLORIDE 0.9% 100 ML IV SCH ×2 (03:47→10:58)
--- NOTE | 2016-07-15 07:15 | Cardiology Progress Note ---
Assessment and Plan - Time spent with patient Time spent with patient: Greater than 30 minutes (1) S/P CABG x 3 Status: Chronic Assessment and plan: SEE PLAN OF CARE LISTED BELOW Current Visit: Yes (2) Hypertension Status: Chronic Assessment and plan: SEE PLAN OF CARE LISTED BELOW Current Visit: Yes (3) Dyslipidemia Status: Chronic Assessment and plan: SEE PLAN OF CARE LISTED BELOW Current Visit: Yes (4) Coronary artery disease Status: Chronic Assessment and plan: SEE PLAN OF CARE LISTED BELOW Current Visit: Yes (5) CVA (cerebral vascular accident) Status: Acute Assessment and plan: SEE PLAN OF CARE LISTED BELOW Current Visit: Yes (6) Seizure Status: Resolved Assessment and plan: SEE PLAN OF CARE LISTED BELOW Current Visit: Yes Cardiology - PN: Subj Interval history: Interval history: BIOMEDICAL ELECTRONICS TECHNICIAN: DR. STEWART ([place]) PCP: LUIS MIGUEL HEATH, [place] SUMMARY: Mr. Christopher, 71WM, was received to [facility] in transfer from [facility] July 07, 2016. At rest, he was diagnosed with NSTEMI. He underwent cardiac catheterization July 06, 2016 and diagnosed with three-vessel coronary artery disease. For this reason, he was transferred to our facility for elective coronary artery bypass grafting. Echocardiogram from [facility] revealed LVEF 55%, mitral annular calcification is present especially at the posterior mitral valve annulus, mild MR noted, dilated aortic root (4.82 cm), RVSP 30-35 mmHg, concentric left ventricular hypertrophy. July 09, 2016 underwent CABG 3 using BRASHER to LAD, SVG to OM, SVG to RCA. He remains in the cardiovascular recovery unit. Post-op he began to have seizures. He has suffered anoxic brain injury and is being followed by Dr. Cortez. JULY 15, 2016: POD 7. Has started weaning trials recently. No more seizures in several days. Vital signs are stable and he is off pressors. Labs are pending from this morning. He is being evaluated for LTAC. ASSESSMENT/PLAN: 1. 3VCAD S/P CABG - POD 7: BRASHER-LAD, SVG-RCA, SVG-OM. Continue ASA daily, betablocker, lipid lowering agent. Consider HELENA soon if creatinine stable and vital signs will allow. He remains critically ill. 2. HYPERTENSION - tolerating betablockade. Introduce HELENA soon if able. 3. DYSLIPIDEMIA - LDL 122. Continue Atorvastatin 4. REMOTE TOBACCOISM - stopped smoking over 8 years ago. 5. NSTEMI - s/p revascularization. Continue current plan of care. 6. SEIZURES - Dr. Cortez managing. 7. CVA - parietotemporal lobe stroke. Appreciate neurologist assistance. 8. ANOXIC BRAIN INJURY - being evaluated for LTAC. Okay to transfer from cardiology standpoint Exam (Progress Note) - Constitutional Vitals: Period Temp Pulse Resp BP Sys/Nails Pulse Ox Last 24 Hr 97.7 F-99.1 F 69-107 10-24 87-164/46-92 97-100 Exam: General: [Remains intubated] [] [Appears comfortable.] HEENT: [Normocephalic, atraumatic. Mucous membranes moist. No jaundice noted. Sclerae edematous. [place] sump through left nares. ] Neck: No obvious JVD/HJR, no thyromegaly or lymphadenopathy noted. Cardiac: [Regular rate and rhythm.] [Friction rub noted. No obvious murmur. Lungs: [Coarse sounds noted throughout. Chest tubes intact without obvious air leak. Symmetrical chest wall movements noted. Sternotomy dressing dry and intact. Abdomen: Soft, bowel sounds normoactive. No abdominal bruit or thrill noted. No masses noted. Extremities: No clubbing, cyanosis noted. [ Generalized trace edema. ] Upper extremity pulses 2+. Lower extremity pulses 2+. Capillary refill less than 3 seconds. Skin: No unusual lesions or rashes. No skin breakdown appreciated. Neuro: Does not respond to tactile or verbal stimuli. No essential tremor is appreciated at this time. No seizure activity noted at this time. Result/EKG - Labs CBC & BMP: 07/14/16 05:35 07/14/16 05:35 Lab Results: I have reviewed the past 24 hour labs Labs: Laboratory Results - last 24 hr 07/14/16 07/14/16 07/14/16 07:48 11:36 14:20 POC Glucose 166 H 124 H Valproic Acid 83.0 07/14/16 07/14/16 07/14/16 15:39 21:35 23:31 POC Glucose 185 H 187 H 169 H Valproic Acid 07/15/16 03:53 POC Glucose 137 H Valproic Acid - EKG EKG results: interpreted by me Quality Measures - VTE Contraindication to Pharmacological VTE Prophylaxis: Active Bleeding Specialty Discharge - Follow Up or Referrals
--- NOTE | 2016-07-15 08:21 | XRay Report ---
XR chest 1V portable Indication: Endotracheal tube Comparison: Chest x-ray dated July 14, 2016 Technique: Frontal views of the chest Findings: Endotracheal tube tip stable in positioning. Cardiomediastinal silhouette is stable in configuration status post sternotomy. Mild haziness of the left lung base remains which may reflect atelectasis or layering pleural fluid. Osseous and surrounding soft tissue structures appear grossly unchanged. IMPRESSION: No significant interval change. PROCEDURE INTERPRETED AT [facility] [place] DEPARTMENT OF RADIOLOGY Final Report Signed by: Dr Nabor Fernandes
--- NOTE | 2016-07-15 08:31 | Pulmonology Progress Note ---
Pulmonary - PN: Subj Interval history: The patient is a 71-year-old has very severe coronary artery disease and had triple-vessel CABG earlier in the week. He apparently had a tear in his aorta and had bleeding and it was a difficult case. Postop he has had seizures and looks like he has a right parietal CVA. CT on Thursday confirmed the areas of infarction. The patient has been stable on the ventilator and his oxygenation has been good. His chest x-ray still clear. He has not had any further seizures but is not waking up very well. He will cough and grimace but is not really moving his extremities any. Overall he is stable on the ventilator. Exam (Progress Note) - Constitutional Vitals: Period Temp Pulse Resp BP Sys/Nails Pulse Ox Last 24 Hr 97.7 F-99.1 F 69-110 10- 87-164/46-92 97-100 Exam: General appearance: normal weight, other (Patient is still poorly responsive at this point. He will cough and grimace) - Head Head exam: Present: normal inspection, normocephalic - Eye Eye exam: Present: He has little eye movement. Absent: scleral icterus Pupils: Present: JENNIFER - ENT ENT exam: Present: other (ET tube is in good position) - Neck Neck exam: Present: normal inspection. Absent: lymphadenopathy, thyromegaly - Respiratory Respiratory exam: Present: clear to auscultation bilaterally. He has good breath sounds bilaterally. Wheezing or rales present. - Cardiovascular Cardiovascular exam: Present: regular rate and rhythm. Sternal wound is stable. Absent: gallop, systolic murmur - GI/Abdominal GI/Abdominal exam: Present: soft. Absent: distended, organomegaly, tenderness - Extremities Exam Extremities exam: Present: edema (Has trace edema of the legs). Absent: calf tenderness - Neurological Exam Neurological exam: Present: altered (Patient is poorly responsive on the ventilator.) - Skin Skin exam: Present: warm, dry Results - Labs CBC & BMP: 07/14/16 05:35 07/14/16 05:35 - Diagnostic Findings Procedure: Chest x-ray: image reviewed by me, report reviewed by me (Chest x- ray is clear) Assessment and Plan (1) Renal insufficiency Status: Acute Assessment and plan: The patient's creatinine is 1.6 and urine output has improved. Current Visit: Yes (2) Former smoker Status: Acute Assessment and plan: Patient quit smoking several years ago but may have a component of COPD. He is stable on the ventilator at present. His chest x-ray is clear Current Visit: Yes (3) Coronary artery disease Status: Chronic Assessment and plan: Patient has significant coronary artery disease. He is now status post CABG. His hemodynamics are stable. Current Visit: Yes (4) S/P CABG x 3 Status: Chronic Assessment and plan: The patient is status post CABG 3 and apparently required an aortic repair. He is hemodynamically stable at present. His blood pressure and heart rate have been stable. Current Visit: Yes (5) Hypertension Status: Chronic Assessment and plan: The patient blood pressure stable at present. Current Visit: Yes (6) CVA (cerebral vascular accident) Status: Acute Assessment and plan: Patient has been having seizures and is getting medications. He has multiple small areas of infarction. He still is not waking up very well. He has had no recent seizures. Current Visit: Yes (7) Seizure Status: Resolved Assessment and plan: He is getting seizure medicines and is followed by neurology. He has had no recent seizures. Current Visit: Yes (8) On mechanically assisted ventilation Status: Acute Assessment and plan: The patient has very good gases on the ventilator and his chest x-ray is clear. Overall he is stable on the ventilator. We will start CPAP trials but he is still not responsive at this point. He will probably go to an LTAC. Current Visit: Yes Specialty Discharge - Follow Up or Referrals
[2016-07-15] MEDS: METOPROLOL TARTRATE 25 MG TABLET PO SCH (08:43)
[2016-07-15] MEDS: ASPIRIN CHEW 81 MG TABLET PO SCH (08:43)
[2016-07-15] MEDS: FUROSEMIDE 40 MG TABLET PO SCH (08:43)
[2016-07-15] MEDS: CHLORHEXIDINE 0.12% ORAL RINSE 60 ML BOTTLE SWISH/SPIT SCH (08:43)
[2016-07-15 08:52] LABS: Basophils % 0.1 % (0.0-0.8); Hematocrit 29.5 VOL% (42.0-52.0); Hemoglobin 9.7 GM/DL (14.0-18.0); Immature Granulocytes % 4.1 %; Immature Granulocytes Absolute 0.67 #; Lymphocytes # 0.9 10*3/uL (1.4-4.0); Lymphocytes % 5.6 % (21.2-54.2); Mean Corpuscular HGB Conc 32.9 GM/DL (32-36); Mean Corpuscular Hemoglobin 29 PG (27-34); Mean Corpuscular Volume 89.1 FL (87-102); Mean Platelet Volume 11.5 FL (9.6-12.0); Monocytes # 2.4 10*3/uL (0.11-0.8); Neutrophils # 12.3 10*3/uL (1.4-7.4); Neutrophils % 75.2 % (38.7-73.9); Platelet Count 248 T/CUMM (130-400); Red Blood Count 3.31 MC/CUMM (3.8-5.5); Red Cell Distribution Width 14.2 % (9.3-17.3); White Blood Count 16.3 T/CUMM (4-12)
[2016-07-15 09:16] LABS: Band Neutrophils 2 % (0-10); Hypochromasia 1+; Lymphocytes 1 % (20-55); Ovalocytes Slight; Platelet Estimate Adequate; Segmented Neutrophils 88 % (50-85); Total Cells Counted 100
[2016-07-15 09:45] LABS: Calcium 8.5 MG/DL (8.5-10.1); Magnesium 2.3 MG/DL (1.8-2.4); Potassium 4.4 MMOL/L (3.5-5.1)
--- NOTE | 2016-07-15 09:58 | Discharge Summary ---
Hospital Course - Hospital Course Hospital Course: The patient was transferred from [place] for an urgent coronary artery bypass status post non-ST elevation myocardial infarction. The patient was admitted to the ICU. He was taken to the OR the following day for a coronary artery bypass graft. 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 Postoperatively the patient initially did well however later on he developed seizure activity. Neurology was consulted and the CT scan showed that he had acute ischemic stroke. The patient remained hemodynamically stable during the entire course of assessment sensation however he has been very slow to recover neurologically. On postoperative day 7 he was ready for transfer for long-term facility. Multiple discussions were carried with the patient's family and I explained that the prognosis due to the stroke is guarded and might take prolonged period of time before full assessment of possible recovery. The family understands. - Time spent with patient Time with patient DS: Greater than 30 minutes Diagnosis - Discharge Diagnosis (1) Coronary artery disease Status: Chronic (2) Coronary artery disease Status: Acute Specialty Discharge - Follow Up or Referrals Discharge Plan - Discharge Data Disposition: Disch/Xfer to [facility] Condition at Discharge: Stable Hygiene: no restrictions - Discharge Medications New Acetaminophen Supp [Tylenol Supp] 650 mg RECTAL Q4H PRN #0 supp PRN Reason: Temp greater than 101F Aspirin Chew Tab 324 mg PO DAILY tablet Atorvastatin [Lipitor] 40 mg PO BEDTIME tablet Furosemide Tab [Lasix Tab] 40 mg PO DAILY tablet Metoprolol Tartrate Tab [Lopressor Tab] 25 mg PO BID tablet Mineral Oil/Petrolat Oph Oint [Refresh PM Oph Oint] 1 applic BOTH EYES PRN PRN #0 applic PRN Reason: lubricate eyes Valproic Acid Inj [Depacon Inj] 750 mg IV Q8H vial levETIRAcetam INJ [Keppra Inj] 500 mg IV Q8H vial Discontinued Ranitidine Tab [Zantac Tab] 150 mg PO BID Metoprolol Tartrate 25 mg PO BID Meloxicam 15 mg PO DAILY Fenofibrate 160 mg PO DAILY Losartan Potassium 100 mg PO DAILY - Follow Up or Referral - Forms/Instructions Instructions: Heart Healthy Diet (GEN), Ischemic Stroke (GEN), Coronary Artery Bypass Graft, 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), Sternal Precautions (GEN) Exam - Constitutional Vitals: Period Temp Pulse Resp BP Sys/Nails Pulse Ox Last 24 Hr 97.7 F-99.6 F 69-110 10-24 87-164/46-92 97-100 Discharge Results Procedures and tests throughout hospitalization: Pending Orders 07/14/16 14:20 Levetiracetam (Keppra) Routine 07/16/16 04:00 BMP w/ Mg [Basic Metabolic Panel w/Mg] IN AM CBC [Comp Blood Count Auto Diff] IN AM 07/17/16 04:00 BMP w/ Mg [Basic Metabolic Panel w/Mg] IN AM CBC [Comp Blood Count Auto Diff] IN AM Magnesium Routine Phosphorous Routine Prealbumin Routine 07/18/16 04:00 BMP w/ Mg [Basic Metabolic Panel w/Mg] IN AM CBC [Comp Blood Count Auto Diff] IN AM Labs on day of discharge: Labs from last 24 hours 07/15/16 07/15/16 07/15/16 08:44 08:44 07:46 WBC 16.3 H D RBC 3.31 L Hgb 9.7 L Hct 29.5 L MCV 89.1 MCH 29 MCHC 32.9 RDW 14.2 Plt Count 248 D MPV 11.5 Neut % (Auto) 75.2 H Lymph % (Auto) 5.6 L Fergus % (Auto) 15.0 H Eos % (Auto) 0.0 Baso % (Auto) 0.1 Neut # (Auto) 12.3 H Lymph # (Auto) 0.9 L Fergus # (Auto) 2.4 H Eos # (Auto) 0.0 Baso # (Auto) 0.0 Total Counted 100 Immature Gran % 4.1 Nucleated RBC % 0.0 Immature Gran # 0.67 Segmented Neutrophils 88 H Band Neutrophils 2 Lymphocytes 1 L Monocytes 9 Nucleated RBCs # 0.00 Platelet Estimate Adequate Hypochromasia 1+ Ovalocytes Slight Morphology Comment Sodium 136 Potassium 4.4 Chloride 99 Carbon Dioxide 29 Anion Gap 12.4 BUN 47 H Creatinine 1.70 H GFR Calculation 46 BUN/Creatinine Ratio 27.00 H Glucose 163 H POC Glucose 185 H Calculated Osmolality 287.0 Calcium 8.5 Magnesium 2.3 Valproic Acid 07/15/16 07/14/16 07/14/16 03:53 23:31 21:35 WBC RBC Hgb Hct MCV MCH MCHC RDW Plt Count MPV Neut % (Auto) Lymph % (Auto) Fergus % (Auto) Eos % (Auto) Baso % (Auto) Neut # (Auto) Lymph # (Auto) Fergus # (Auto) Eos # (Auto) Baso # (Auto) Total Counted Immature Gran % Nucleated RBC % Immature Gran # Segmented Neutrophils Band Neutrophils Lymphocytes Monocytes Nucleated RBCs # Platelet Estimate Hypochromasia Ovalocytes Morphology Comment Sodium Potassium Chloride Carbon Dioxide Anion Gap BUN Creatinine GFR Calculation BUN/Creatinine Ratio Glucose POC Glucose 137 H 169 H 187 H Calculated Osmolality Calcium Magnesium Valproic Acid 07/14/16 07/14/16 07/14/16 15:39 14:20 11:36 WBC RBC Hgb Hct MCV MCH MCHC RDW Plt Count MPV Neut % (Auto) Lymph % (Auto) Fergus % (Auto) Eos % (Auto) Baso % (Auto) Neut # (Auto) Lymph # (Auto) Fergus # (Auto) Eos # (Auto) Baso # (Auto) Total Counted Immature Gran % Nucleated RBC % Immature Gran # Segmented Neutrophils Band Neutrophils Lymphocytes Monocytes Nucleated RBCs # Platelet Estimate Hypochromasia Ovalocytes Morphology Comment Sodium Potassium Chloride Carbon Dioxide Anion Gap BUN Creatinine GFR Calculation BUN/Creatinine Ratio Glucose POC Glucose 185 H 124 H Calculated Osmolality Calcium Magnesium Valproic Acid 83.0 DS: Provider Date of admission: 07/06/16 16:45 Primary care physician: Basil Hale Attending physician on admission: Basil Hale Consults: 07/06/16 15:30 Consult to Dietitian [CONS] Routine Reason for Dietitian: Other Consult Comment: low salt, low cholesterol, diet 07/08/16 12:55 Consult to Occupational Therapy [CONS] Routine Reason for Occupational Therapy: Evaluate and Treat Start Therapy: Tomorrow Consult to Physical Therapy [CONS] Routine Reason for Physical Therapy: Evaluate and Treat Start Therapy: Tomorrow 07/09/16 06:22 Consult to Physician [CONS] Routine Comment: Seizures Consulting Provider: Joe Cortez Person Notified: Kely Date Notified: 07/09/16 Time Notified: 08:50 07/10/16 10:10 Consult to Physician [CONS] Routine 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
[2016-07-15 12:57] VITALS: BP 117/66
== END 2016-07-15 12:50 | DRG 235 ==
LOC: N.ICU 16:45 → N.CVR 07-08 08:43 → N.ICU 07-09 13:21
PROVIDERS: ADMIT Thoracic Surgery (Cardiothoracic Vascular Surgery); ATTEND Thoracic Surgery (Cardiothoracic Vascular Surgery)